=== PATIENT | female | born 1935 | race Caucasian/White ===

== ENCOUNTER 2017-01-23 09:02 | Emergency (ER) | payer MEDICARE, MEDICAID ==
[~2017-01-23] VITALS: Ht 152.4 cm; Wt 68.0 kg
[~2017-01-23 09:02] MED LIST: ACTOS15 MG PO; ASPIRIN 81MG TA81 MG PO; BISOPROLOL 5MG T5 MG PO; CELEBREX200 MG PO; CYMBALTA60 MG PO; DOXYCYCLINE HY100 M4 PO; FLOVENT 22220 MCG/PU IH; HYDROCHLOROTHIA1 TA1 PO; IPRATROPIUM BROM3 M1 IH; LEVAQUIN 750 M750 MG PO; LEVOTHYROXINE0.05 M3 NG; LISINOPRIL 10MG10 MG PO; METFORMIN ER500 M1 PO; PIOGLITAZONE HC30 MG PO; PREDNISONE 20MG20 MG PO; PROAIR HFA0.09 MG/AC IH; SINGULAIR10 MG PO; SPIRIVA HA1 PUFF/INH IH; SYNTHROID 0.0.125 MG PO; TAMIFLU 75MG CA75 MG PO; TESSALON PERLE100 M1 PO; TRAMADOL 50MG T50 MG PO; ZITHROMAX TRI-500 MG PO; ZOCOR40 MG PO
[2017-01-23 09:19] LABS: LYMPH # 0.7 K/mm3 (0.7-4.5); LYMPH % 9.4 % (10-50.0)
--- NOTE | 2017-01-23 09:24 | Emergency Room Report ---
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 N Clinical Suspician of Infection? N Mental Status: 1 - Regular (Normal Baseline) Sepsis Risk:Severe Sepsis Risk Have you (or family members/close friends) recently traveled outside the [place]? N If Yes, where/when: Have you had exposure to infectious disease within the past month? TB? Other? Specify: Comment Difficult history, limited by the patient's condition. She arrives in respiratory distress. The patient is brought in by ambulance for respiratory distress. She has a history of chronic obstructive pulmonary disease. She says she has been short of breath since Saturday. She hurts all over. She denies any recent cough or fever. ALLERGIES Coded Allergies: No Known Allergies (01/23/17) Home Medications Active Scripts Prednisone (Prednisone 20MG) 40 MG PO BID #24 TAB Prov: 07/20/16 BISOPROLOL FUMARATE (Bisoprolol 5MG) 5 MG PO DAILY #30 TAB Prov: 07/20/16 ALBUTEROL-IPRATROPIUM (Iprat-Albut 0.5-3(2.5) MG/3 Ml) 3 ML IH QID #120 NEB Ref 2 Prov: 07/20/16 FLUTICASONE PROP (Flovent 220) 1 PUFF IH BID #1 INH Ref 2 Prov: 07/20/16 Levofloxacin (Levaquin 750mg) 750 MG PO DAILY #3 TAB Prov: 07/20/16 Reported Medications Simvastatin (Zocor) 40 MG PO QHS Celecoxib (Celebrex) 200 MG PO QHS DULOXETINE HCL (Cymbalta 60MG) 60 MG PO QHS Montelukast Sodium (Singulair) 10 MG PO QHS ASPIRIN (Aspirin) 81 MG PO DAILY Tiotropium Raymond (Spiriva) 1 PUFF IH DAILY Albuterol Sulfate (Proair Hfa) 2 PUFFS IH Q4HP LEVOTHYROXINE SOD (Levothyroxine 0.05MG) 0.05 MG NG DAILY LISINOPRIL/HYDROCHLOROTHIAZIDE (Lisinopril-Hctz 20-12.5 MG Tab) 1 TAB PO DAILY PIOGLITAZONE HCL (Pioglitazone Hcl 30MG Tablet) 30 MG PO DAILY Metformin HCl (Metformin ER) 1,000 MG PO DAILY Tramadol Hcl (Tramadol 50MG) 50 MG PO Q6HP PRN PAIN History Medical History General CAD? No Angina: No RI: No Hypertension? Yes Hyperlipidemia? Yes CHF? No DVT? No PE? No COPD? Yes Asthma? Yes Anemia? No GERD? No Gastric ulcers? No GI Bleed? No Hernia? No Thyroid Problems? No Hypothyroidism? No CVA? No Seizures? No Diabetes? Yes Insulin Dependent: No Insulin Pump: No Home FSBS? No Renal Insuffiency? No End Stage Renal Disease? No UTI? No Stones? No BPH? No GB Disease: No Nephritic Syndrome? No Asplenia? No Hepatitis? No Sickle Cell Disease? No Arthritis? No Migraines? No Cataracts? Yes Glaucoma? No MRSA? No HIV? No TB? No Anxiety? No Depression? No Cancer? No More? No Immunization Hx Ped.Immunizations UTD Yes DT/Tetanus > 10 Years Ago Flu 2015-FSN Pneumonia Received In Past Surgical Hx Previous Surgery?N Family History Family Hx Diabetes No CAD No Hypertension Yes Hyperlipidemia No Cancer Yes TB No Social History Smoking Hx Smoker: Former Smoker Tobacco: No Packs/day N/A Alcohol Alcohol: No Review of Systems All Other Systems Reviewed and Negative Constitutional see HPI, denies fever Respiratory denies cough, shortness of breath Gastrointestinal denies vomiting Physical Exam Vital Signs Vital Signs Date Time Temp Pulse Resp B/P Pulse O2 O2 Flow FiO2 Ox Delivery Rate 01/23 1123 133 18 110/70 99 01/23 1049 142 28 89/40 93 01/23 1011 133 28 127/99 87 / 0922 98 / 0905 98.0 133 18 90/40 84 4 General Appearance moderate distress (labored respirations), speaks very softly and no one-2 word sentences only, pulse ox 85 percent on 5 L nasal cannula on my arrival Eye Exam - bilateral eye normal exam, bilateral eye PERRL, bilateral eye EOMI Ear, Nose, Throat hearing grossly normal, normal ENT inspection Neck normal inspection, non-tender, supple, full range of motion Respiratory Status Yes: respiratory distress, trachea midline, chest symmetrical. Lung Sounds bilateral: normal breath sounds, lungs clear. Cardiovascular normal exam, regular rate/rhythm, no peripheral edema, no gallop, no JVD, no murmur, no rub, normal peripheral pulses Peripheral Pulses Pulses normal Yes Gastrointestinal normal bowel sounds, normal exam, non tender, soft, no organomegaly Back normal inspection Extremities normal inspection Neurologic alert, no motor/sensory deficits Mental status anxious Skin intact, normal color, warm/dry Medical Decision Making LABS/Meds/Orders Pt receiving controlled substance in ED? No Results/Orders Laboratory Tests 01/23/17 1052: POC Glucose 115 H 01/23/17 0940: Lactic Acid 2.8 H 01/23/17 0925: ABG pH 7.32 L, ABG pCO2 (Temp Corrct 45.0, ABG pO2 (Temp Correct 59.6 L, ABG HCO3 22.9, ABG Total CO2 24.3, ABG O2 Sat (Calculated) 85.4 *L, ABG Base Excess -3.2 L, Lavon Test ACCEPTABLE 01/23/17 0900: TSH 0.53, Free T4 1.33 01/23/17 0900: B-Natriuretic Peptide 1620 H 01/23/17 0900: Sodium 137, Potassium 4.2, Chloride 95 L, Carbon Dioxide 28, BUN 83 H, Creatinine 4.0 H, Estimated Creat Clear 12 L, Estimated GFR (MDRD) 11 *L, Glucose 41 *L, Calcium 8.5, Total Bilirubin 3.8 H, AST 98 H, ALT 28, Alkaline Phosphatase 66, Creatine Kinase 493 H, CK-MB (CK-2) Rel Index 2.0, CK and CKMB Interp 9.9 *H, Troponin I 0.18 H, Total Protein 7.1, Albumin 2.0 L, Globulin 5.1 H, Albumin/Globulin Ratio 0.4 L, WBC 7.8, Corrected WBC (auto) 7.7, RBC 4.09 L, Hgb 11.9 L, Hct 36.5 L, MCV 89.3, RDW 16.2, Plt Count 243, MPV 10.1, Gran % 88.3 H, Gran # 6.9, Total Counted 100, Lymphocytes % 9.4 L, Monocytes % 1.8, Eosinophils % 0.1, Basophils % 0.4, Neutrophils 72, Band Neutrophils 6, Lymphocytes (Manual) 16, Lymphocytes # 0.7, Monocytes (Manual) 4, Monocytes # 0.1, Eosinophils # 0.0, Basophils # 0.0, Metamyelocytes 2 H, Nucleated RBCs 1, Platelet Estimate NORMAL, PUBS MCHC 32.4, MCH 29.0 Current Medication Orders Sig/Lucila Start time Last Medication Dose Route Stop Time Status Admin Azithromycin 500 MG ONCE ONE 01/23 104 DCD Sodium Chloride 250 ML IV 01/23 1144 Ceftriaxone Sodium 1 GM ONCE ONE 01/23 104 DC Sodium Chloride 50 ML IV 01/23 1114 Aspirin 324 MG ONCE ONE 01/23 1015 DC PO 01/23 1016 Dextrose 50 ML ONCE ONE 01/23 1015 DC 01/23 IVP 01/23 1016 1017 Dextrose 0 .STK-MED ONE 01/23 1014 DC .ROUTE Albuterol/Ipratropium 0 .STK-MED ONE 01/23 0935 DC INH Albuterol/Ipratropium 3 ML ONCE ONE 01/23 930 DC INH 01/23 0931 Methylprednisolone 125 MG ONCE ONE 01/23 930 DC 01/23 Sodium Succinate IV 01/23 931 0945 Orders Procedure Date/time Status DIET-NOTHING BY MOUTH 01/23 L Active FINGERSTICK BLOOD SUGAR 01/23 1052 Complete RESP THERAPY REQUEST (GENERAL) 01/23 930 Active RT REQUEST DUONEB 01/23 930 Active CULTURE, SPUTUM 01/24 928 Active CULTURE, BLOOD 01/24 928 Active LACTIC ACID 01/24 928 Complete THYROID STIMULATING HORMONE 01/23 922 Complete FREE T4 01/23 922 Complete BRAIN NATRIURETIC PEPTIDE 01/23 918 Complete ELECTROCARDIOGRAM REQUEST 01/23 909 Active ARTERIAL BLOOD GAS REQUEST 01/23 909 Active OXYGEN PER NURSE 01/23 909 Active CBC WITH AUTO DIFF 01/23 909 Complete CARDIAC ENZYMES 01/23 909 Complete CHEM 12 PROFILE 01/23 909 Complete DIFFERENTIAL-WBC 01/23 900 Complete 12 LEAD EKG-PRECIOUS (INITIAL) 01/23 UNK Active CM/EKG CM/EKG Comments EKG interpreted by Rik Renusch, MD: Rhythm: sinus tachycardia Rate: 133 [place]: normal Ectopy: none Conduction: RIGHT bundle branch block ST Segment Changes: none T Wave Changes: none Q Waves: none No evidence of acute ischemia or injury Low voltage QRS XRAY/CT/US XRAY/CT/US XRAY chest Comment X-ray interpreted by radiologist: Pneumonia with effusion RIGHT side. Dr. Ferro does not feel congestive heart failure is likely, vessels do not appear congested. He questions whether a mass could be present in the RIGHT base. CT recommended. Progress - 10:30 AM: Case discussed with Dr. Lazo and Dr. Hernandez. Given the patient's acute renal failure in addition to the other conditions, it is felt she would best be served by transfer to [facility]. 10:45 AM: Case discussed with emergency physician Dr. De La Cruz at [facility]. He accepts the patient to the emergency department. Departure Departure Disposition DC/XFER from ER to [facility] Clinical Impression Primary Impression: Acute respiratory failure with hypoxia Secondary Impressions: Acute renal failure Qualifiers: Acute renal failure type: unspecified Qualified Code: N17.9 - Acute kidney failure, unspecified Community acquired pneumonia Elevated bilirubin Hypoglycemia Non-ST elevation myocardial infarction (NSTEMI) Condition STABLE ED Critical Care Critical Care Yes Time spent 30-74 min Vital system(s) involved: Metabolic Failure, Respiratory Failure, Renal Failure I was present at bedside for Coordinating pt's care, Interpreting EKGs/Strips , During my initial exam, Reviewing lab results, Reviewing old records, Discussing pt condition, For re-examinations, Examining radiographs at 1335
[2017-01-23 09:27] LABS: HEMOGLOBIN 11.9 g/dL (12.2-16.2)
[2017-01-23 09:29] LABS: ARTERIAL ABE -3.2 MMOL/L (-2.4-+2.3); ARTERIAL PO2 59.6 MMHG (80-100); ARTERIAL TCO2 24.3 MMOL/L (23-27)
[2017-01-23 09:30] LABS: ALLEN'S TEST ACCEPTABLE; OXYGEN 40
--- OUTSIDE RECORDS SUMMARY | 2017-01-23 09:36 | External Medical Summary Rpt ---
Author Author , Organization [employer] Address Unknown Phone Unavailable Care Team Providers Care Echo Vasc Tech Name Role Phone [facility] BEINEKE ESAU, BEERIC Unavailable Unavailable MARIANO GUTIERREZ Unavailable Unavailable BESSON, BESSON Unavailable Unavailable BESSON VIOLETA, BESSON Unavailable Unavailable VIOLETA [facility], Unavailable Unavailable [facility], Unavailable Unavailable [facility] NEENA RODRIGUEZ, Unavailable Unavailable NEENA RODRIGUEZ CANNON, CANNON Unavailable Unavailable ESTEVAN MCCAIN Unavailable Unavailable [facility] Unavailable Unavailable SERVICE, [facility] Unavailable Unavailable [place], [facility] Unavailable Unavailable [facility], [facility] Unavailable Unavailable LAB, [facility] Unavailable Unavailable [facility] [place], [facility] Jack BROWN COOPER, Unavailable Unavailable Jack Huitron AMIRA, AMIRA Unavailable Unavailable AMIRA ELIA, Unavailable Unavailable AMIRA ELIA AMIRA, CORAZON, Unavailable Unavailable AMIRA, CORAZON [facility], Unavailable Unavailable [facility] Unavailable Unavailable [facility], [facility] GUNNAR JAMAR, Unavailable Unavailable [facility] Unavailable Unavailable [facility], [facility] BIN EDUARDO, BIN Unavailable Unavailable EDUARDO [facility] Un[facility] Unavailable [facility], [facility], [facility] Unavailable Unavailable [facility], [facility] ROSE KENDRICK, ROSE KENDRICK Unavailable Unavailable ROSE KENDRICK, ROSE KENDRICK Unavailable Unavailable ROSE, JEFE A, Unavailable Unavailable ROSE, JEFE A [facility], Unavailable Unavailable [facility], Unavailable Unavailable [facility], Unavailable Unavailable [facility] JASPER VITOR, JASPER Unavailable Unavailable VITOR [facility] Unavailable Unavailable [facility], [facility] Unavailable Unavailable [facility] Unavailable Unavailable [facility], [facility] JOHNSON KIMBERLY, JOHNSON Unavailable Unavailable KIMBERLY [facility] Unavailable Unavailable SERVICES, [facility] MCKEMIE JR JUANITA, Unavailable Unavailable MCKEMIE JR JUANITA MCKEMIE JR JUANITA, Unavailable Unavailable MCKEMIE JR JUANITA MAISHA PAL, Unavailable Unavailable MAISHA PAL [facility], Unavailable Unavailable [facility], Unavailable Unavailable [facility] MULBERRY, JAIR T, Unavailable Unavailable MULBERRY, JAIR T [facility] Un[facility] Unavailable PHARMACY PETTEY JAM, PETTEY Unavailable Unavailable JAM PETTEY JAM, PETTEY Unavailable Unavailable JAM PICKLESIMER JR GURPREET, Unavailable Unavailable PICKLESIMER JR GURPREET [facility] Unavailable Unavailable [facility], [facility] Unavailable Unavailable [facility], [facility] Un[facility] Unavailable [facility] Unavailable Unavailable [facility], [facility] Unavailable Unavailable [facility] Unavailable Unavailable [facility], [facility] Unavailable Unavailable [address]591, [facility] [address] [facility] # Unavailable Unavailable [id number], [facility] # [id number] [facility] Unavailable Unavailable [facility], Unavailable [facility]available [facility], Unavailable [facility]available [facility] Purpose Continuity of Care Document - 07-25-2007 through 2016 Problems Code Diagnosis DOS Provider Status J441 CHRONIC 09-18-2016 [facility]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 ION J9601 ACUTE 09-18-2016 [facility] RESPIRATORY HOME FAILURE MEDICAL WITH EQUIPME HYPOXIA J449 CHRONIC 09-10-2016 [facility] P[facility]MON[facility] LLC DISEASE UNS R1033 PERIUMBILIC 08-23-2016 [facility] G36498 PAIN IN 08-07-2016 [facility] R600 LOCALIZED 08-07-2016 [facility] E039 HYPOTHYROID 07-14-2016 [facility] UNSPECIFIED INC E119 TYPE 2 07-14-2016 [facility] MELLITUS INC WITHOUT COMPLICATIO NS E785 HYPERLIPIDE 07-14-2016 [facility] UNSPECIFIED INC I10 ESSENTIAL 07-14-2016 [facility] HYPERTENSIO INC N R05 COUGH 07-13-2016 [facility] R0602 SHORTNESS 07-13-2016 [facility] OF [facility]ATH [facility] R918 OTHER 07-13-2016 [facility] NONSPECIFIC [facility]ICAL ABNORMAL [facility] FINDING OF LUNG FIELD 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 OTHER PARTS OF FACE D2239 MELANOCYTIC 02-03-2016 [facility] NEVI OF PHYSICIANS OTHER PARTS GROUP OF FACE L989 DISORDER 02-03-2016 [facility] THE SKIN & ANESTH OF SUBCUTANEOU THE BLUE S TISSUE UNS C86780 ENCOUNTER 02-01-2016 [facility] AL CARIOVASCUL AR EXAM L92605 ENCOUNTER 02-01-2016 [facility] AL LABORATORY EXAM D492 NEOPLASM OF 01-20-2016 [facility] UNS PHYSICIANS BEHAVIOR GROUP BONE SOFT TISSUE & SKIN D4989 NEOPLASM OF 01-20-2016 [facility] PHYSICIANS UNSPECIFIED GROUP BEHAVIOR OTH SPEC SITES 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 Q98702 VARUS 11-02-2015 [facility] DEFORMITY PHYSICIANS NEC LEFT GROUP KNEE 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 7242 LUMBAGO 02-14-2015 [facility] 65793 SPASM OF 02-14-2015 [facility] 22532 ABDOMINAL 02-14-2015 [place] PAIN, MEDICAL UNSPECIFIED IMAGING ASS SITE 26419 DIAB W/O 01-14-2015 [facility] COMP TYPE ADVISORS II/UNS NOT STATED UNCNTRL 48095 PAIN IN OR 11-09-2014 [facility] 4019 UNSPECIFIED 11-09-2014 [facility] [place] [facility] 588[address] OPEN WOUND 11-09-2014 [facility] WITHOUT [facility]ING ASS MENTION COMPLICATIO N 920 CONTUSION 11-09-2014 [facility] P NECK EXCEPT EYE 9219 UNSPECIFIED 11-09-2014 [place] CONTUSION [facility]ICAL OF EYE IMAGING ASS E8498 OTHER 11-09-2014 [facility] P OCCURRENCE E8859 FALL FROM 11-09-2014 [facility] P TRIPPING OR STUMBLING 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 496 CHRONIC 06-24-2014 [place] [facility] OBSTRUCTION INC NEC 7862 COUGH 06-24-2014 [facility] 41001 ASTHMA, 02-16-2014 [facility] UNSPECIFIED HOME , MEDICAL UNSPECIFIED EQUIPME STATUS 77900 OBSTRUCTIVE 12-19-2012 [facility]ON[facility] WITH EXACERBATIO N 7850 UNSPECIFIED 06-19-2012 ANN ADRIAN JUANITA TACHYCARDIA 4293 CARDIOMEGAL 05-10-2012 [facility] 4659 ACUTE URIS 05-10-2012 [place] [facility] UNSPECIFIED INC SITE 5119 UNSPECIFIED 05-10-2012 [facility]FF[facility]ION [facility] 58035 OSTEOARTHRO 03-21-2012 PETTEY JAM SIS UNSPEC WHETHER GEN/LOC LOWER LEG 44031 PAIN IN 02-29-2012 PETTEY JAM JOINT, LOWER LEG 4871 INFLUENZA 10-04-2011 MULBERRY WITH OTHER OFELIA RESPIRATORY MANIFESTATI ONS 97137 INFLUENZA 09-29-2011 ATUL D/T ID EMERGENCY STORM FLU SERVICES VIRUS OTH RESP MANIF 5199 UNSPECIFIED 09-29-2011 [place] DISEASE OF [facility] IM[facility] ASS RESPIRATORY SYSTEM 46998 UNSPECIFIED 08-07-2011 ROSE KENDRICK TEAR FILM INSUFFICIEN CY V7612 OTHER 04-27-2011 [place] SCREENING [facility] MAMMOGRAM INC 9221 CONTUSION 04-17-2011 [facility] EMERGENCY WALL SERVICES E8889 UNSPECIFIED 04-17-2011 [facility] EMERGENC[facility] 2449 UNSPECIFIED 04-16-2011 [facility] HYPOTHYROID LA ISM 5990 URINARY 04-16-2011 [facility]CT [facility] INFECTION LA SITE NOT SPECIFIED 81479 DIAB 10-18-2010 [facility] W/NEURO NEUROLOGY MANIFESTS [facility]ENTER [facility] TYPE II/UNS NOT UNCNTRL 3572 POLYNEUROPA 10-18-2010 [facility] THY IN NEUROLOGY DIABETES CENTER [facility] 2724 OTHER AND 10-16-2010 [facility] U[facility]PECIFIED [facility] HYPERLIPIDE TALISHA 7292 UNSPECIFIED 10-16-2010 [facility] NEURALGIA [facility] NEURITIS AND RADICULITIS 02985 AFTER-CATAR 06-12-2010 ROSE MARKS ACT, OBSCURING VISION V0481 NEED 04-25-2010 [facility] PROPHYLACTI [facility] C VACCINATION &INOCULATIO N FLU 16278 CHRONIC 02-10-2010 [facility] OBSTRUCTIVE [facility] ASTHMA WITH EXACERBATIO N 94741 PRIMARY 02-10-2010 [facility] LOCALIZED [facility] OSTEOARTHRO SIS LOWER LEG 7823 EDEMA 02-10-2010 [facility] 47008 GENERALIZED 09-20-2009 [facility] OSTEOARTHRO SIS UNSPECIFIED SITE 7245 UNSPECIFIED 03-04-2009 [facility] BACKACHE [facility] 1179 OTHER AND 02-03-2009 [facility] UNSPECIFIED ASSOCIATES MYCOSES 05269 CHRONIC 02-03-2009 [facility] OBSTRUCTIVE [facility] ASTHMA UNSPECIFIED 24464 OSTEOARTHRO 02-03-2009 [facility] S INVLV MX ASSOCIATES SITES BUT NOT SPEC GEN 71660 ASTHMA 12-09-2008 [facility] UNSPECIFIED [facility] WITH EXACERBATIO N 02546 CHRONIC 11-26-2008 [facility]STRUCT[facility] ASTHMA W/STATUS ASTHMATICUS 64080 UNSPECIFIED 11-26-2008 [facility] URINARY [facility] INCONTINENC E 92467 SHORTNESS 09-30-2008 [facility] OF BREATH [facility] V431 LENS 08-24-2008 SHILOH REPLACED BY VISION OTHER MEANS 32178 NUCLEAR 08-17-2008 [facility] 3669 UNSPECIFIED 08-17-2008 ROSE, CATARACT JEFE A 74174 DIAB 06-15-2008 [facility] W/OPHTH [facility] MANIF[facility]S IN[facility] TYPE II/UNS NOT UNCNTRL 3688 OTHER 06-15-2008 [facility] SPECIFIED [facility]UAL [facility] DISTURBANCE S 39946 DERMATOCHAL 06-15-2008 [facility] 49991 PAIN IN 04-01-2008 [facility] JOINT, [facility]OCI[facility] SHOULDER REGION Allergies, Adverse Reactions, Alerts Clinical Alert Notifications Alert Diabetes: no eye exam in the last 365 days Diabetes: no lipid panel in the last 365 days Diabetes: no urine protein screening in the last 365 days Medications Na ND Rx Da Fi Fi Am Da Di Ph RX Ph St me C No te ll ll ou ys ag ar # ys at rm s nt no ma ic us Or Da si cy ia de te s n re d TU 61 03 03 0 30 5 WA 44 MU Ac SS 57 -0 -0 .0 L- 84 LB ti IG 00 9 9- 00 MA 02 ER ve ON 03 10 20 RT 8 RY 10 10 10 5- 1 PH BR 1. AR IA 5 MA N MG CY T # TA BL 10 ET 05 91 TU 61 02 02 00 30 5 WA 44 MU Ac SS 57 -1 -2 .0 L- 83 LB ti IG 00 7- 6- 00 MA 54 ER ve ON 20 20 RT 3 RY 10 10 10 5- 1 PH BR 1. AR IA 5 MA N MG CY T TA #5 BL 91 ET TU 61 05 06 00 30 5 WA 44 MU Ac SS 57 -2 -0 .0 L- 76 LB ti IG 00 1 4 MA 82 ER ve ON 03 10 20 RT 6 RY 10 09 09 5- 1 PH BR 1. AR IA 5 MA N MG CY T TA #5 BL 91 ET Immunization Name Date Route CVX Reacti Commen Provid Is Given on t er Refuse d IIV MULBER No VACCIN 2009 RY OFELIA E PRESER V FREE INCREA SED AG CONTEN T IM IIV3 MULBER No VACCIN 2008 RY, E JAIR SPLIT T VIRUS 0.5 ML DOSAGE IM USE IIV3 STEPHANIE No VACCIN 2007 , J G E SPLIT VIRUS 0.5 ML DOSAGE IM USE Procedures Procedure DOS Code Location Performer Comment O2 CONC 1 E1390 [facility] SANCHEZRELL [place] 7 HOME HOME 85%/>02 MEDICAL MEDICAL CONC AT EQUIPME [facility] FLW RATE PRTBLE E0431 [facility] GASEOUS 7 HOME HOME O2 SYS MEDICAL MEDICAL RENT; EQUIPME EQUIPME FLWMTR HUMIDFR&M ASK ADMN SET A7005 YOUR YOUR W/SM VOL 7 PHARMACY PHARMACY NONFILTR [facility] NEBULIZR NON-DISPB L ALBUTEROL J7613 YOUR YOUR INHAL 7 PHARMACY PHARMACY NON-CP [facility] PROD THRU DME U DOSE 1 MG AREO MASK A7015 YOUR YOUR USED W/ 7 PHARMACY PHARMACY [place] [facility] [place] [address] [facility] ABDOMEN & 7 MEM HOS[facility] PELVIS INC INC W/O CONTRAST MATERIAL O2 CONC 1 E1390 GU[facility] GUERO DEL PORT 7 HOME HOME 85%/>02 MEDICAL MEDICAL CONC AT EQUIPME [facility] FLW RATE PRTBLE E0431 [facility] GASEOUS 7 HOME HOME O2 SYS MEDICAL MEDICAL RENT; EQUIPME EQUIPME FLWMTR HUMIDFR&M ASK DUP-SCAN 90912 [place] CANNON XTR VEINS 7 MEDICAL IMAGING UNILATERA ASS L/LIMITED STUDY O2 CONC 1 E1390 [facility] MOMIN PORT 6 HOME HOME 85%/>02 MEDICAL MEDICAL CONC AT EQUIPME EQUIPME PRSC FLW RATE PRTBLE E0431 [facility] JACK GASEOUS 6 HOME HOME O2 SYS MEDICAL MEDICAL RENT; EQUIPME EQUIPME FLWMTR HUMIDFR&M ASK RADIOLOGI 49684 EVE COLLIER 6 MEDICAL EXAMINATI IMAGING ON CHEST ASS SINGLE VIEW FRONTAL AMB A0427 [facility] SERVICE 6 AMBULANCE AMBULANCE ALS SERVICE SERVICE EMERGENCY TRANSPORT LEVEL 1 ECG 97112 [facility] ROUTINE 6 [facility] W/LEAST P 12 LDS I&R ONLY GROUND A0425 [facility] MILEAGE 6 AMBULANCE AMBULANCE PER SERVICE SERVICE STATUTE MILE ANES 48978 [facility] INTEG 6 ANESTH MUSC & OF THE NRV HEAD BLUE NECK&[place] [address] CHIPPS PICKLESIM SURG 6 NELLI & ER JR [facility] PATHOLOGY ELLIOTILI GROSS&EDUARDO ROSCOPIC EXAM GLUC BLD 56045 [facility] F[facility]RELL GLUC MNTR 6 [facility] H[facility] DEV INC INC CLEARED FDA SPEC HOME USE ADJT TIS 58871 [facility] TRNS/REAR 6 PHYSICIAN PHYSICIAN GMT S GROUP S GROUP F/C/C/M/N /A/G/H/F 10SQCM/< ECG 68047 [facility] ROUTINE 6 [facility] W/LEAST P 12 LDS I&R ONLY COLLECTIO 82172 [facility] N VENOUS 6 [facility] BLOOD INC INC VENIPUNCT URE ECG 64534 [facility] FERRELL ROUTINE 6 [facility] ECG INC INC W/LEAST 12 LDS TRCG ONLY W/O I&R COMPREHEN 82128 [facility] SIVE 6 MEM HOS[facility]OS[facility] METABOLIC INC INC PANEL ARTHROCEN 57541 [facility] PETFrank TESIS 6 PHYSICIAN JENNIFER ASPIR&/IN S GROUP J MAJOR JT/BURSA W/O US HYALURONA J7325 [facility] PETTEY N/DERIV 6 PHYSICIAN JENNIFER SYNVISC/S S GROUP YNVISC-ON E IA INJ 1 MG FOR DIAB A5512 PAT'S PAT'S ONLY MX 6 PHARMACY PHARMACY DNSITY INSRT DIR FORMD PRFAB EA DIAB ONLY A5500 PAT'S PAT'S FIT CSTM 6 PHARMACY PHARMACY PREP&SPL SHOE MX DNSITY INSRT LANCETS A4259 HOME HOME PER BOX 5 [facility] OF 100 ADVISORS ADVISORS BLD GLU A4253 HOME HOME TEST/REAG 5 HEALTH HEALTH T STRIPS ADVISORS ADVISORS HOME BLD GLU MON-50 NORMAL A4256 HOME HOME LOW AND 5 HEALTH HEALTH HIGH ADVISORS ADVISORS CALIBRATO R SOLUTION/ CHIPS RADEX 76171 [place] CLARYINEDONA ABDOMEN 1 5 MEDICAL ESAU IMAGING ANTEROPOS ASS TERIOR VIEW RADEX 41763 [place] SPINE 5 MEDICAL ESAU LUMBOSACR IMAGING AL ASS MINIMUM 4 VIEWS REPL MAURICIO A4233 HOME HOME ALKALINE 5 HEALTH HEALTH NOT J ADVISORS ADVISORS CELL YANELI BG MON OWND PT SPRING-PO A4258 HOME HOME WERED 5 HEALTH HEALTH DEVICE ADVISORS ADVISORS FOR LANCET EACH BLD GLU A4253 HOME HOME TEST/REAG 5 HEALTH HEALTH T STRIPS ADVISORS ADVISORS HOME BLD GLU MON-50 LANCETS A4259 HOME HOME PER BOX 5 [facility]ALTH HEALTH OF 100 ADVISORS ADVISORS NORMAL A4256 HOME HOME LOW AND 5 HEALTH HEALTH HIGH ADVISORS ADVISORS CALIBRATO R SOLUTION/ CHIPS NORMAL A4256 HOME HOME LOW AND 5 HEALTH HEALTH HIGH ADVISORS ADVISORS CALIBRATO R SOLUTION/ CHIPS LANCETS A4259 HOME HOME PER BOX 5 [facility] OF 100 ADVISORS ADVISORS BLD GLU A4253 HOME HOME TEST/REAG 5 HEALTH HEALTH T STRIPS ADVISORS ADVISORS HOME BLD GLU MON-50 RADEX 05490 [facility] 5 MEDICAL ELIA COMPLETE IMAGING MINIMUM 4 ASS VIEWS WRIST L3908 [facility] HAND 5 MEDICAL MEDICAL ORTHOSIS [place] EXT CONTROL COCK-UP PREFAB RADIOLOGI 40699 [facility] F[facility]RE[facility] C EXAM 4 MEM HOS[facility]OS[facility] CHEST 2 INC INC VIEWS FRONTAL&L ATERAL LANCETS A4259 [facility] PER BOX 4 MEDICAL MEDICAL OF 100 [place] BLD GLU A4253 [facility] TEST/REAG 4 MEDICAL MEDICAL T STRIPS [place] HOME BLD GLU MON-50 NORMAL A4256 [facility] LOW AND 4 MEDICAL MEDICAL HIGH [place] CALIBRATO R SOLUTION/ CHIPS NORMAL A4256 [facility] LOW AND 4 MEDICAL MEDICAL HIGH [place] CALIBRATO R SOLUTION/ CHIPS BLD GLU A4253 [facility] TEST/REAG 4 MEDICAL MEDICAL T STRIPS [place] HOME BLD GLU MON-50 LANCETS A4259 [facility] PER BOX 4 MEDICAL MEDICAL OF 100 [place] FOR DIAB A5512 PAT'S PAT'S ONLY MX 4 PHARMACY PHARMACY DNSITY INSRT DIR FORMD PRFAB EA DIAB ONLY A5500 PAT'S PAT'S FIT CSTM 4 PHARMACY PHARMACY PREP&SPL SHOE MX DNSITY INSRT O2 CONC 1 E1390 GUERO GUERO DEL PORT 4 HOME HOME 85%/>02 MEDICAL MEDICAL CONC AT EQUIPME EQUIPME PRSC FLW RATE REPL MAURICIO A4233 HOME HOME ALKALINE 4 HEALTH HEALTH NOT J ADVISORS ADVISORS CELL YANELI BG MON OWND PT LANCETS A4259 HOME HOME PER BOX 4 [facility] OF 100 ADVISORS ADVISORS NORMAL A4256 HOME HOME LOW AND 4 HEALTH HEALTH HIGH ADVISORS ADVISORS CALIBRATO R SOLUTION/ CHIPS BLD GLU A4253 HOME HOME TEST/REAG 4 HEALTH HEALTH T STRIPS ADVISORS ADVISORS HOME BLD GLU MON-50 O2 CONC 1 E1390 GUERO GUERO DEL PORT 4 HOME HOME 85%/>02 MEDICAL MEDICAL CONC AT EQUIPME EQUIPME PRSC FLW RATE O2 CONC 1 E1390 GUERO GUERO DEL PORT 4 HOME HOME 85%/>02 MEDICAL MEDICAL CONC AT EQUIPME EQUIPME PRSC FLW RATE SPRING-PO A4258 [facility] WERED 4 MEDICAL MONEY EXAMINER [place] FOR LANCET EACH BLD GLU A4253 [facility] TEST/REAG 4 MEDICAL MEDICAL T STRIPS [place] HOME BLD GLU MON-50 NORMAL A4256 [facility] LOW AND 4 MEDICAL MEDICAL HIGH [place] CALIBRATO R SOLUTION/ CHIPS LANCETS A4259 [facility] PER BOX 4 MEDICAL MEDICAL OF 100 [place] O2 CONC 1 E1390 [facility] MOMIN PORT 4 HOME HOME 85%/>02 MEDICAL MEDICAL CONC AT EQUIPME EQUIPME [facility] FLW RATE O2 CONC 1 E1390 [facility] MOMIN PORT 4 HOME HOME 85%/>02 MEDICAL MEDICAL CONC AT EQUIPME EQUIPME PRS FLW RATE LANCETS A4259 HOME HOME PER BOX 4 [facility] HEALTH OF 100 ADVISORS ADVISORS BLD GLU A4253 HOME HOME TEST/REAG 4 HEALTH HEALTH T STRIPS ADVISORS ADVISORS HOME BLD GLU MON-50 NORMAL A4256 HOME HOME LOW AND 4 HEALTH HEALTH HIGH ADVISORS ADVISORS CALIBRATO R SOLUTION/ CHIPS O2 CONC 1 E1390 [facility] MOMIN PORT 4 HOME HOME 85%/>02 MEDICAL MEDICAL CONC AT EQUIPME EQUIPME PRS FLW RATE HOME E0607 [facility] BLOOD 4 MEDICAL MEDICAL GLUCOSE [place] MONITOR BLD GLU A4253 [facility] TEST/REAG 4 MEDICAL MEDICAL T STRIPS [place] HOME BLD GLU MON-50 LANCETS A4259 [facility] PER BOX 4 MEDICAL MEDICAL OF 100 [place] O2 CONC 1 E1390 [facility] MOMIN PORT 4 HOME HOME 85%/>02 MEDICAL MEDICAL CONC AT EQUIPME EQUIPME PRS FLW RATE O2 CONC 1 E1390 [facility] MOMIN PORT 3 HOME HOME 85%/>02 MEDICAL MEDICAL CONC AT EQUIPME EQUIPME PRS FLW RATE REPL MAURICIO A4233 HOME HOME ALKALINE 3 HEALTH HEALTH NOT J ADVISORS ADVISORS CELL YANELI BG MON OWND PT LANCETS A4259 HOME HOME PER BOX 3 [facility] OF 100 ADVISORS ADVISORS NORMAL A4256 HOME HOME LOW AND 3 HEALTH HEALTH HIGH ADVISORS ADVISORS CALIBRATO R SOLUTION/ CHIPS BLD GLU A4253 HOME HOME TEST/REAG 3 HEALTH HEALTH T STRIPS ADVISORS ADVISORS HOME BLD GLU MON-50 O2 CONC 1 E1390 [facility] MOMIN PORT 3 HOME HOME 85%/>02 MEDICAL MEDICAL CONC AT EQUIPME EQUIPME PRSC FLW RATE SPRING-PO A4258 [place] WERED 3 [facility] STATES DEVICE MEDICAL MEDICAL FOR SUPPLY SUPPLY LANCET EACH BLD GLU A4253 [facility] TEST/REAG 3 [facility] STATES T STRIPS MEDICAL MEDICAL HOME BLD SUPPLY SUPPLY GLU MON-50 NORMAL A4256 [facility] LOW AND 3 [facility] HIGH MEDICAL MEDICAL CALIBRATO SUPPLY SUPPLY R SOLUTION/ CHIPS LANCETS A4259 [facility] PER BOX 3 [facility] OF [facility] MEDICAL MEDICAL SUPPLY SUPPLY O2 CONC 1 E1390 GUERO SANCHEZRELL DEL PORT 3 HOME HOME 85%/>02 MEDICAL MEDICAL CONC AT EQUIPME EQUIPME PRSC FLW RATE O2 CONC 1 E1390 GUERO GUERO DEL PORT 3 HOME HOME 85%/>02 MEDICAL MEDICAL CONC AT EQUIPME EQUIPME PRSC FLW RATE LANCETS A4259 HOME HOME PER BOX [address] [place] [address] ADVISORS ADVISORS NORMAL A4256 HOME HOME LOW AND 3 HEALTH HEALTH HIGH ADVISORS ADVISORS CALIBRATO R SOLUTION/ CHIPS BLD GLU A4253 HOME HOME TEST/REAG 3 HEALTH HEALTH T STRIPS ADVISORS ADVISORS HOME BLD GLU MON-50 O2 CONC 1 E1390 GUERO GUERO DEL PORT 3 HOME HOME 85%/>02 MEDICAL MEDICAL CONC AT EQUIPME EQUIPME PRSC FLW RATE O2 CONC 1 E1390 GUERO GUERO DEL PORT 3 HOME HOME 85%/>02 MEDICAL MEDICAL CONC AT EQUIPME EQUIPME PRSC FLW RATE O2 CONC 1 E1390 GUERO GUERO DEL PORT 3 HOME HOME 85%/>02 MEDICAL MEDICAL CONC AT EQUIPME EQUIPME PRSC FLW RATE SPRING-PO A4258 [facility] WERED 3 [facility]ALTH[facility] HEALTHCAR DEVICE E E FOR SOLUTIONS SOLUTIONS LANCET EACH REPL MAURICIO A4233 [facility] ALKALINE 3 HEALTHCAR HEALTHCAR NOT J E E CELL YANELI SOLUTIONS SOLUTIONS BG MON OWND PT NORMAL A4256 [facility] LOW AND 3 [facility] HEALTHCAR HIGH E E CALIBRATO SOLUTIONS SOLUTIONS R SOLUTION/ CHIPS BLD GLU A4253 [facility] TEST/REAG 3 [facility]ALTHCAR HEALTHCAR T STRIPS E E HOME BLD SOLUTIONS SOLUTIONS GLU MON-50 LANCETS A4259 [facility] PER BOX 3 [facility]ALTH[facility] HEALTHCAR OF 100 E E SOLUTIONS SOLUTIONS ALBUTEROL J7620 YOUR YOUR TO 2.5 3 PHARMACY PHARMACY [facility] [employer] IPRATROPI UM BROM TO 0.5 MG PHRM Q0513 YOUR YOUR DISPENSIN 3 PHARMACY PHARMACY [facility] INHALATIO N RX; PER 30 DAYS O2 CONC 1 E1390 GUERO JACK DEL PORT 3 HOME HOME 85%/>02 MEDICAL MEDICAL CONC AT EQUIPME EQUIPME PRSC FLW RATE O2 CONC 1 E1390 GUERO JACK DEL PORT 3 HOME HOME 85%/>02 MEDICAL MEDICAL CONC AT EQUIPME EQUIPME PRSC FLW RATE O2 CONC 1 E1390 GUERO JACK DEL PORT 3 HOME HOME 85%/>02 MEDICAL MEDICAL CONC AT EQUIPME EQUIPME PRSC FLW RATE NORMAL A4256 [facility] LOW AND 3 HEALTHCAR HEALTHCAR HIGH E E CALIBRATO SOLUTIONS SOLUTIONS R SOLUTION/ CHIPS LANCETS A4259 [facility] PER BOX 3 [facility]ALTHCAR HEALTHCAR OF 100 E E SOLUTIONS SOLUTIONS BLD GLU A4253 [facility] TEST/REAG 3 HEALTHCAR HEALTHCAR T STRIPS E E HOME BLD SOLUTIONS SOLUTIONS GLU MON-50 O2 CONC 1 E1390 GUERO JACK DEL PORT 3 HOME HOME 85%/>02 MEDICAL MEDICAL CONC AT EQUIPME EQUIPME PRSC FLW RATE PRTBLE E0431 GUERO GUERO GASEOUS 3 HOME HOME O2 SYS MEDICAL MEDICAL RENT; EQUIPME EQUIPME FLWMTR HUMIDFR&M ASK PULM G0424 [facility] INCL EXER INC INC 1 HR PER SESS TO 2 PER DAY O2 CONC 1 E1390 GUEROMAYO JACK DEL PORT 3 HOME HOME 85%/>02 MEDICAL MEDICAL CONC AT EQUIPME EQUIPME PRSC FLW RATE PRTBLE E0431 GUERO GUERO GASEOUS 3 HOME HOME O2 SYS MEDICAL MEDICAL RENT; EQUIPME EQUIPME FLWMTR HUMIDFR&M ASK DETERMINA [id number] ROSE MARKS TION 3 REFRACTIV E STATE PUL G0424 [facility] INCL EXER INC INC 1 HR PER SESS TO 2 PER DAY OPH [id number] ROSE MARKS MEDICAL 3 XM&EVAL COMPRHNSV ESTAB PT 1/> PUL G0424 [facility] VITRO INCL EXER INC 1 HR PER SESS TO 2 PER DAY PUL G0424 [facility] VITOR INCL EXER INC 1 HR PER SESS TO 2 PER DAY PUL G0424 [facility] INCL EXER INC INC 1 HR PER SESS TO 2 PER DAY PUL G0424 [facility] INCL EXER INC INC 1 HR PER SESS TO 2 PER DAY PUL G0424 [facility] INCL EXER INC INC 1 HR PER SESS TO 2 PER DAY PUL G0424 [facility] INCL EXER INC INC 1 HR PER SESS TO 2 PER DAY O2 CONC 1 E1390 GUERO JACK DEL PORT 2 HOME HOME 85%/>02 MEDICAL MEDICAL CONC AT EQUIPME EQUIPME PRSC FLW RATE PRTBLE E0431 GUERO JACK GASEOUS 2 HOME HOME O2 SYS MEDICAL MEDICAL RENT; EQUIPME EQUIPME FLWMTR HUMIDFR&M ASK ALBUTEROL [id number] YOUR YOUR TO 2.5 2 PHARMACY PHARMACY MG & IPRATROPI UM BROM TO 0.5 MG REPL MAURICIO A4233 [facility] ALKALINE 2 [facility]ALTH[facility] HEALTHCAR NOT J E E CELL YANELI SOLUTIONS SOLUTIONS BG MON OWND PT SPRING-PO A4258 [facility] WERED 2 [facility] HE[facility]CAR DEVICE E E FOR SOLUTIONS SOLUTIONS LANCET EACH NORMAL A4256 [facility] LOW AND 2 HEALTHCAR HEALTHCAR HIGH E E CALIBRATO SOLUTIONS SOLUTIONS R SOLUTION/ CHIPS BLD GLU A4253 PLAZA PLAZA TEST/REAG 2 [facility] HE[facility]CAR T STRIPS E E HOME BLD SOLUTIONS SOLUTIONS GLU MON-50 LANCETS A4259 PLAZA PLAZA PER BOX 2 [facility] OF 100 E E SOLUTIONS SOLUTIONS PULM G0424 [facility] ROGERSON [facility] INCL EXER INC INC 1 HR PER SESS TO 2 PER DAY XTRNL ECG 66058 GHASSAN FERRELL & 48 HR 2 [facility] RECORDING INC INC O2 CONC 1 E1390 GUERO JACK DEL PORT 2 HOME HOME 85%/>02 MEDICAL MEDICAL CONC AT EQUIPME EQUIPME PRS FLW RATE EXTERNAL 74695 GHASSAN FERRELL ECG 2 [facility] SCANNING INC INC ANALYSIS REPORT XTRNL ECG 43041 VIOLAMIWes KATHYKEMIE 2 JR JUANITA JR JUANITA CONTINUOU S RHYTHM W/I&R UP TO 48 HRS PRTBLE E0431 GUERO SANCHEZRELL GASEOUS 2 HOME HOME O2 SYS MEDICAL MEDICAL RENT; EQUIPKS EQUIPME FLWMTR HUMIDFR&M ASK PULM G0424 [facility] FERRELL [facility]AB [facility] INCL EXER INC INC 1 HR PER SESS TO 2 PER DAY PULM G0424 GHASSAN FERRELL [facility] INCL EXER INC INC 1 HR PER SESS TO 2 PER DAY PULM G0424 GHASS[facility] FERRELL [facility] 2 [facility] INCL EXER INC INC 1 HR PER SESS TO 2 PER DAY SPMTRY 45540 BESSON BESSON W/VC 2 VIOLETA VIOLETA EXPIRATOR Y JERMAIN W/WO MXML VOL VNTJ ALBUTEROL J7620 YOUR YOUR TO 2.5 2 PHARMACY PHARMACY MG & IPRATROPI UM BROM TO 0.5 MG ADMN SET A7003 YOUR YOUR SM VOL 2 PHARMACY PHARMACY NONFILTR PNEUMAT NEBULIZR DISPBL O2 CONC 1 E1390 GUERO JACK DEL PORT 2 HOME HOME 85%/>02 MEDICAL MEDICAL CONC AT EQUIPME EQUIPME [facility] FLW RATE PRTBLE E0431 GUERO GUERO GASEOUS 2 HOME HOME O2 SYS MEDICAL MEDICAL RENT; EQUIPME EQUIPME FLWMTR HUMIDFR&M ASK RADIOLOGI 24972 AMIRA AMIRA C EXAM 2 ELIA ELIA CHEST 2 VIEWS FRONTAL&L ATERAL PRESSURIZ 17795 GHASSAN FERRELL ED/NONPRE 2 [facility]P SSURIZED INC INC INHALATIO N TREATMENT RADIOLOGI 43523 [facility] AM[facility] C EXAM 2 MEDICAL ELIA CHEST 2 IMAGING VIEWS ASS FRONTAL&L ATERAL LANCETS A4259 PLAZA PLAZA PER BOX 2 [facility]CAR OF 100 E E SOLUTIONS SOLUTIONS NORMAL A4256 PLAZA PLAZA LOW AND 2 [facility] HEALTHCAR HIGH E E CALIBRATO SOLUTIONS SOLUTIONS R SOLUTION/ CHIPS BLD GLU A4253 PLAZA PLAZA TEST/REAG 2 [facility] HEALTHCAR T STRIPS E E HOME BLD SOLUTIONS SOLUTIONS GLU MON-50 HYALURONA J7325 PETTEY PETTEY N/DERIV 2 JAM JAM SYNVISC/S YNVISC-ON E IA INJ 1 MG HYALURONA J7325 PETTEY PETTEY N/DERIV 2 JAM JAM SYNVISC/S YNVISC-ON E IA INJ 1 MG HYALURONA J7325 PETTEY PETTEY N/DERIV 2 JAM JAM SYNVISC/S YNVISC-ON E IA INJ 1 MG HYALURONA J7325 PETTEY PETTEY N/DERIV 2 JAM JAM SYNVISC/S YNVISC-ON E IA INJ 1 MG RADIOLOGI 63456 GHASSAN FERRELL C EXAM 2 [facility] KNEE INC INC COMPLETE 4/MORE VIEWS REPL MAURICIO A4233 PLAZA PLAZA ALKALINE 2 [facility] HE[facility] NOT J E E CELL YANELI SOLUTIONS SOLUTIONS BG MON OWND PT SPRING-PO A4258 PLAZA PLAZA WERED 2 [facility] HEALTHCAR DEVICE E E FOR SOLUTIONS SOLUTIONS LANCET EACH LANCETS A4259 PLAZA PLAZA PER BOX 2 [facility] HEALTHCAR OF 100 E E SOLUTIONS SOLUTIONS BLD GLU A4253 PLAZA PLAZA TEST/REAG 2 [facility] HEALTHCAR T STRIPS E E HOME BLD SOLUTIONS SOLUTIONS GLU MON-50 NORMAL A4256 PLAZA PLAZA LOW AND 2 [facility] HEALTHCAR HIGH E E CALIBRATO SOLUTIONS SOLUTIONS R SOLUTION/ CHIPS BLD GLU A4253 PLAZA PLAZA TEST/REAG 2 [facility]ALTH[facility] HEALTHCAR T STRIPS E E HOME BLD SOLUTIONS SOLUTIONS GLU MON-50 LANCETS A4259 PLAZA PLAZA PER BOX 2 HEALTHCAR HEALTHCAR OF 100 E E SOLUTIONS SOLUTIONS LANCETS A4259 PLAZA PLAZA PER BOX 2 [facility]ALTHCAR HEALTHCAR OF 100 E E SOLUTIONS SOLUTIONS NORMAL A4256 PLAZA PLAZA LOW AND 2 [facility] HEALTHCAR HIGH E E CALIBRATO SOLUTIONS SOLUTIONS R SOLUTION/ CHIPS BLD GLU A4253 PLAZA PLAZA TEST/REAG 2 [facility] HEALTHCAR T STRIPS E E HOME BLD SOLUTIONS SOLUTIONS GLU MON-50 PRESSURIZ 34490 GHASSAN FERRELL ED/NONPRE 2 [facility] [place]URIZ[place] [address] GHASSAN FERRELL INFUSION 2 [facility] THERAPY/P INC INC ROPHYLAXI S /DX 1ST TO 1 HR ECG 37699 GHASSAN FERRELL ROUTINE 2 [facility] ECG INC INC W/LEAST 12 LDS TRCG ONLY W/O I&R CREATINE 89323 GHASSAN FERRELL KINASE 2 [facility] TOTAL INC INC RADIOLOGI 25860 GHASSAN FERRELL C 2 [facility] EXAMINATI INC INC ON CHEST SINGLE VIEW FRONTAL CREATINE 60957 GHASSAN FERRELL KINASE MB 2 [facility] FRACTION INC INC ONLY IAADI 92189 GHASSAN FERRELL INFLUENZA 2 [facility] B VIRUS INC INC IAADI 34928 GHASSAN FERRELL INFFLUENZ 2 [facility] A A VIRUS INC INC INJECTION J0456 GHASSAN FERRELL 2 [facility] AZITHROMY INC INC RADHAMES 500 MG BLOOD 06864 GHASSAN FERRELL COUNT 2 [facility] COMPLETE INC INC AUTO&AUTO DIFRNTL WBC BASIC 57469 GHASSAN FERRELL METABOLIC 2 [facility] PANEL INC INC CALCIUM TOTAL NATRIURET 40013 GHASSAN FERRELL IC 2 [facility] [place] [address] GHASSAN FERRELL TROPONIN 2 [facility]P QUANTITAT INC INC MAEVE ECG 30527 ATUL STEWARD ROUTINE 2 EMERGENCY EDUARDO ECG SERVICES W/LEAST 12 LDS I&R ONLY CULTURE 06298 GHASSAN FERRELL BACTERIAL 2 [facility] BLOOD INC INC AEROBIC W/ID ISOLATES SMR PRIM 36248 GHASSAN FERRELL SRC 2 [facility] GRAM/GIEM INC INC SA STAIN BCT FUNGI/SYLVIE L DETERMINA 43537 ROSE KENDRICK ROSE KENDRICK TION 2 REFRACTIV E STATE LANCETS A4259 PLAZA PLAZA PER BOX 1 [facility]ALTH[facility] HEALTHCAR OF 100 E E SOLUTIONS SOLUTIONS NORMAL A4256 PLAZA PLAZA LOW AND 1 [facility] HEALTHCAR HIGH E E CALIBRATO SOLUTIONS SOLUTIONS R SOLUTION/ CHIPS BLD GLU A4253 PLAZA PLAZA TEST/REAG 1 [facility] HEALTHCAR T STRIPS E E HOME BLD SOLUTIONS SOLUTIONS GLU MON-50 REPL MAURICIO A4233 PLAZA PLAZA ALKALINE 1 HEALTH[facility] HEALTHCAR NOT J E E CELL YANELI SOLUTIONS SOLUTIONS BG MON OWND PT [facility] A4258 PLAZA PLAZA WERED 1 HEALTHCAR HEALTHCAR DEVICE E E FOR SOLUTIONS SOLUTIONS LANCET EACH COMPUTER- 22864 GHASSAN FERRELL AIDED 1 [facility] DETECTION INC INC SCREENING MAMMOGRAP HY SCREENING G0202 GHASSAN FERRELL 1 [facility] MAMMOGRAP INC INC HY PASCALE INCL CAD WHEN PERFORMD RADEX 15420 [place] AMIRA STERNUM 1 MEDICAL ELIA MINIMUM 2 IMAGING VIEWS ASS RADIOLOGI 70058 GHASSAN FERRELL C EXAM 1 [facility] CHEST 2 INC INC VIEWS FRONTAL&[place] [address] COMBINED COMBINED THYROID 1 PHYSICIAN PHYSICIAN STIMULATI S LA S LA NG HORMONE TSH BASIC 13462 COMBINED COMBINED METABOLIC 1 PHYSICIAN PHYSICIAN PANEL S LA S LA CALCIUM TOTAL WALKER E0143 GUERO GUERO FOLDING 1 HOME HOME WHEELED MEDICAL MEDICAL ADJUSTABL EQUIPME EQUIPME E/FIXED [facility]IGHT [facility] A4258 PLAZA PLAZA WERED 1 HEALTHCAR HEALTHCAR DEVICE E E FOR SOLUTIONS SOLUTIONS LANCET EACH REPL MAURICIO A4233 PLAZA PLAZA ALKALINE 1 HEALTHCAR HEALTHCAR NOT J E E CELL YANELI SOLUTIONS SOLUTIONS BG MON OWND PT LANCETS A4259 PLAZA PLAZA PER BOX 1 [facility]ALTHCAR HEALTHCAR OF 100 E E SOLUTIONS SOLUTIONS NORMAL A4256 PLAZA PLAZA LOW AND 1 HE[facility] HEALTHCAR HIGH E E CALIBRATO SOLUTIONS SOLUTIONS R SOLUTION/ CHIPS BLD GLU A4253 PLAZA PLAZA TEST/REAG 1 [facility] HEALTHCAR T STRIPS E E HOME BLD SOLUTIONS SOLUTIONS GLU MON-50 H-REFLEX 79840 GNOSTICISM GUNNAR AMPLT&LAT 1 NEUROLOGY [facility]ENTER GASTRCN/S LUCIAN OLEUS MUSC HEMOGLOBI 69689 FAMILY FAMILY N 1 CARE CARE GLYCOSYLA ASSOCIATE ASSOCIATE STELLA A1C S S GLUCOSE 26211 FAMILY MULBERRY POST 1 CARE OFELIA GLUCOSE ASSOCIATE DOSE S NORMAL A4256 PLAZA PLAZA LOW AND 1 HEALTH[facility] HEALTHCAR HIGH E E CALIBRATO SOLUTIONS SOLUTIONS R SOLUTION/ CHIPS BLD GLU A4253 PLAZA PLAZA TEST/REAG 1 HEALTHCAR HEALTHCAR T STRIPS E E HOME BLD SOLUTIONS SOLUTIONS GLU MON-50 LANCETS A4259 PLAZA PLAZA PER BOX 1 HEALTHCAR HEALTHCAR OF 100 E E SOLUTIONS SOLUTIONS LANCETS A4259 PLAZA PLAZA PER BOX 1 HEALTHCAR HEALTHCAR OF 100 E E SOLUTIONS SOLUTIONS BLD GLU A4253 PLAZA PLAZA TEST/REAG 1 HE[facility]CAR HEALTHCAR T STRIPS E E HOME BLD SOLUTIONS SOLUTIONS GLU MON-50 BLD GLU A4253 PLAZA PLAZA TEST/REAG 0 HEALTHCAR HEALTHCAR T STRIPS E E HOME BLD SOLUTIONS SOLUTIONS GLU MON-50 LANCETS A4259 PLAZA PLAZA PER BOX 0 HEALTHCAR HEALTHCAR OF 100 E E SOLUTIONS SOLUTIONS NORMAL A4256 PLAZA PLAZA LOW AND 0 HEALTHCAR HEALTHCAR HIGH E E CALIBRATO SOLUTIONS SOLUTIONS R SOLUTION/ CHIPS LANCETS A4259 PLAZA PLAZA PER BOX 0 HEALTHCAR HEALTHCAR OF 100 E E SOLUTIONS SOLUTIONS BLD GLU A4253 PLAZA PLAZA TEST/REAG 0 HEALTHCAR HEALTHCAR T STRIPS E E HOME BLD SOLUTIONS SOLUTIONS GLU MON-50 [facility] A4258 PLAZA PLAZA WERED 0 HEALTHCAR HEALTHCAR DEVICE E E FOR SOLUTIONS SOLUTIONS LANCET EACH OPHTH 84662 ROSE KENDRICK [facility] 0 XM&EVAL COMPRHNSV ESTAB PT 1/> RADEX 91969 GHASSAN FERRELL SPINE 0 [facility] LUMBOSACR INC INC AL MINIMUM 4 VIEWS URNLS DIP 38483 FAMILY MULBERRY 0 CARE OFELIA STICK/TAB ASSOCIATE LET RGNT S NON-AUTO W/O MICRSCP IIV 18437 FAMILY MULBERRY VACCINE 0 CARE OFELIA PRESERV ASSOCIATE FREE S INCREASED AG CONTENT IM ADMINISTR G0008 FAMILY MULBERRY ATION OF 0 CARE OFELIA INFLUEN[place] [address] COMBINED COMBINED THYROID 0 PHYSICIAN PHYSICIAN STIMULATI S LA S LA NG HORMONE TSH CREATININ 92474 FAMILY MULBERRY E OTHER 0 CARE OFELIA SOURCE ASSOCIATE S TRANSFERA 81669 FAMILY MULBERRY SE 0 CARE OFELIA ASPARTATE ASSOCIATE AMINO S AST SGOT TRANSFERA 45503 FAMILY MULBERRY SE 0 CARE OFELIA ALANINE ASSOCIATE AMINO ALT S SGPT BASIC 06586 COMBINED COMBINED METABOLIC 0 PHYSICIAN PHYSICIAN PANEL S LA S LA CALCIUM TOTAL COLLECTIO 43917 FAMILY MULBERRY N VENOUS 0 CARE OFELIA BLOOD ASSOCIATE VENIPUNCT S URE HEMOGLOBI 76794 FAMILY MULBERRY N 0 CARE OFELIA GLYCOSYLA ASSOCIATE STELLA A1C S CULTURE 50994 COMBINED COMBINED BACTERIAL 0 PHYSICIAN PHYSICIAN S LA S LA QUANTTATI VE COLONY COUNT URINE ALBUMIN 72478 FAMILY MULBERRY URINE 0 CARE OFELIA MICROALBU ASSOCIATE MIN S SEMIQUANT ITATIVE GLUCOSE 08473 FAMILY MULBERRY POST 0 CARE OFELIA GLUCOSE ASSOCIATE DOSE S URNLS DIP 71173 FAMILY MULBERRY 0 CARE OFELIA STICK/TAB ASSOCIATE LET RGNT S NON-AUTO W/O MICRSCP LIPID 96844 FAMILY FAMILY PANEL 0 CARE EVENT COORDINATOR ASSOCIATE S S PHYS G0179 FAMILY MULBERRY RE-CERT 0 CARE OFELIA MCR-COVR ASSOCIATE [facility] S SRVC RE-CERT PRD BLD GLU A4253 DOCTOR DOCTOR TEST/REAG 0 DIABETIC DIABETIC T STRIPS SUPPLY SUPPLY HOME [employer] INC GLU MON-50 LANCETS A4259 DOCTOR DOCTOR PER BOX 0 DIABETIC DIABETIC OF 100 SUPPLY SUPPLY INC INC NORMAL A4256 DOCTOR DOCTOR LOW AND 0 DIABETIC DIABETIC HIGH SUPPLY SUPPLY [employer] INC R SOLUTION/ CHIPS LANCETS A4259 DOCTOR DOCTOR PER BOX 0 DIABETIC DIABETIC OF 100 SUPPLY SUPPLY INC INC NORMAL A4256 DOCTOR DOCTOR LOW AND 0 DIABETIC DIABETIC HIGH SUPPLY SUPPLY [employer] R SOLUTION/ CHIPS BLD GLU A4253 DOCTOR DOCTOR TEST/REAG 0 DIABETIC DIABETIC T STRIPS SUPPLY SUPPLY HOME [employer] INC GLU MON-50 PHYS G0179 FAMILY MULBERRY, RE-CERT 0 CARE JAIR T MCR-COVR ASSOCIATE [facility] S SRVC RE-CERT PRD BLOOD 85424 FAMILY MULBERRY, COUNT 0 CARE JAIR T COMPLETE ASSOCIATE AUTO&AUTO S DIFRNTL WBC ALBUTEROL J7613 YOUR YOUR INHAL 0 PHARMACY PHARMACY NON-CP PROD THRU DME U DOSE 1 MG BLOOD 66880 FAMILY MULBERRY, COUNT 0 CARE JAIR T COMPLETE ASSOCIATE AUTO&AUTO S DIFRNTL WBC ADMN SET A7003 YOUR YOUR SM VOL 0 PHARMACY PHARMACY NONFILTR PNEUMAT NEBULIZR DISPBL ALBUTEROL J7620 YOUR YOUR TO 2.5 0 PHARMACY PHARMACY MG & IPRATROPI UM BROM TO 0.5 MG PHRM Q0513 YOUR YOUR DISPENSIN 0 PHARMACY PHARMACY G FEE INHALATIO N RX; PER 30 DAYS WATER E0217 [facility] CIRCULATI 0 MEDICAL MEDICAL NG HEAT SOLUTIONS SOLUTIONS PAD WITH PUMP SPRING-PO A4258 DOCTOR DOCTOR WERED 0 DIABETIC DIABETIC DEVICE SUPPLY SUPPLY FOR [employer] INC LANCET EACH NORMAL A4256 DOCTOR DOCTOR LOW AND 0 DIABETIC DIABETIC HIGH SUPPLY SUPPLY CALIBRATO INC INC R SOLUTION/ CHIPS BLD GLU A4253 DOCTOR DOCTOR TEST/REAG 0 DIABETIC DIABETIC T STRIPS SUPPLY SUPPLY HOME BLD INC INC GLU MON-50 LANCETS A4259 DOCTOR DOCTOR PER BOX 0 DIABETIC DIABETIC OF 100 SUPPLY SUPPLY INC INC RADIOLOGI 14779 [place] Jovanni COLLIER EXAM 9 MEDICAL CORAZON CHEST 2 IMAGING VIEWS ASSOCIATE FRONTAL&L S ATERAL LANCETS A4259 DOCTOR DOCTOR PER BOX 9 DIABETIC DIABETIC OF 100 SUPPLY SUPPLY INC INC NORMAL A4256 DOCTOR DOCTOR LOW AND 9 DIABETIC DIABETIC HIGH SUPPLY SUPPLY [employer] INC INC R SOLUTION/ CHIPS BLD GLU A4253 DOCTOR DOCTOR TEST/REAG 9 DIABETIC DIABETIC T STRIPS SUPPLY SUPPLY HOME BLD INC INC GLU MON-50 SPRING-PO A4258 DOCTOR DOCTOR WERED 9 DIABETIC DIABETIC DEVICE SUPPLY SUPPLY FOR [employer] INC LANCET EACH REPL MAURICIO A4235 DOCTOR DOCTOR LITHIUM 9 DIABETIC DIABETIC MED NECES SUPPLY SUPPLY YANELI BG INC INC MON OWN PT EA ADMINISTR G0008 FAMILY MULBERRY, ATION OF 9 CARE JAIR T INFLUENZA ASSOCIATE VIRUS S VACCINE IIV3 12315 FAMILY MULBERRY, VACCINE 9 CARE JAIR T SPLIT ASSOCIATE VIRUS 0.5 S ML DOSAGE IM USE LIPID 05492 COMBINED COMBINED PANEL 9 PHYSICIAN [place] [address] COMBINED COMBINED THYROID 9 PHYSICIAN PHYSICIAN STIMULATI S LAB S LAB NG HORMONE TSH HEMOGLOBI 82904 FAMILY MULBERRY, N 9 CARE JAIR T GLYCOSYLA ASSOCIATE STELLA A1C S COLLECTIO 76915 FAMILY MULBERRY, N VENOUS 9 CARE JAIR T BLOOD ASSOCIATE VENIPUNCT S URE GLUCOSE 54167 FAMILY MULBERRY, POST 9 CARE JAIR T GLUCOSE ASSOCIATE DOSE S LIPOPROTE 74390 LAB REAGAN LAB REAGAN IN BLOOD 9 [facility] HOLDINGS NUMBERS & SUBCLASSE S COMPREHEN 39918 COMBINED COMBINED SIVE 9 PHYSICIAN PHYSICIAN METABOLIC S LAB S LAB PANEL URNLS DIP 81334 FAMILY MULBERRY, 9 CARE JAIR T STICK/TAB ASSOCIATE LET RGNT S NON-AUTO W/O MICRSCP PHYS G0179 FAMILY AMBARBERRY, RE-CERT 9 SUSAN Pascual MCR-COVR ASSOCIATE [facility] S SRVC RE-CERT PRD BLD GLU A4253 DOCTOR DOCTOR TEST/REAG 9 DIABETIC DIABETIC T STRIPS SUPPLY SUPPLY HOME BLD INC INC GLU MON-50 NORMAL 200 A4256 DOCTOR DOCTOR LOW AND 9 DIABETIC DIABETIC HIGH SUPPLY SUPPLY CALIBRATO INC INC R SOLUTION/ CHIPS LANCETS A4259 DOCTOR DOCTOR PER BOX 9 DIABETIC DIABETIC OF 100 SUPPLY SUPPLY INC INC BLOOD 09394 FAMILY GUAJARDO, COUNT 9 CARE JAIR Pascual COMPLETE ASSOCIATE AUTO&AUTO S DIFRNTL WBC PHYS G0179 FAMILY BENNETT, RE-CERT 9 SUSAN Pascual MCR-COVR [facility]OC[facility] S SRVC RE-CERT PRD NORMAL A4256 DOCTOR DOCTOR LOW AND 9 DIABETIC DIABETIC HIGH SUPPLY SUPPLY CALIBRATO INC INC R SOLUTION/ CHIPS BLD GLU A4253 DOCTOR DOCTOR TEST/REAG 9 DIABETIC DIABETIC T STRIPS SUPPLY SUPPLY HOME BLD INC INC GLU MON-50 LANCETS A4259 DOCTOR DOCTOR PER BOX 9 DIABETIC DIABETIC OF 100 SUPPLY SUPPLY INC INC BASIC 35257 COMBINED COMBINED METABOLIC 9 PHYSICIAN PHYSICIAN PANEL S LAB S LAB CALCIUM TOTAL PHYS CERT G0180 FAMILY GUAJARDO, MCR-COVR 9 SUSAN Pascual YANELI [facility] ASSOCIATE SRVC PER S CERT PRD PHYS CERT G0180 FAMILY GUAJARDO, MCR-COVR 9 SUSAN Pascual YANELI [facility] ASSOCIATE SRVC PER S CERT PRD SPHERE V2200 SHILOHTR[facility]ITY RDZA BIFOCL 9 VISION VISION PLANO TO PLUS/ANILA S 4.00D PER LENS BIFOCL V2203 SHILOHTRINITY MATAMOROS PLANO +/- 9 VISION VISION 4.00D SPHER 0.12-2.00 D CYL-EA FRAMES V2020 SHILOH MATAMOROS PURCHASES 9 VISION VISION CATARACT 83430 [facility] REMOVAL 9 EYE , NEENA Lerner [facility] POSTERIOR V2632 GHASSAN FERRELL CHAMBER 9 [facility] INTRAOCUL INC INC AR LENS GLUC BLD 77239 GHASSAN FERRELL GLUC MNTR 9 [facility] DEV INC INC CLEARED FDA SPEC HOME USE REPL MAURICIO A4235 DOCTOR DOCTOR LITHIUM 9 DIABETIC DIABETIC MED NECES SUPPLY SUPPLY YANELI BG INC INC MON OWN PT EA SPRING-PO A4258 DOCTOR DOCTOR WERED 9 DIABETIC DIABETIC DEVICE SUPPLY SUPPLY FOR INC INC LANCET EACH NORMAL A4256 DOCTOR DOCTOR LOW AND 9 DIABETIC DIABETIC HIGH SUPPLY SUPPLY CALIBRATO INC INC R SOLUTION/ CHIPS LANCETS A4259 DOCTOR DOCTOR PER BOX 9 DIABETIC DIABETIC OF 100 SUPPLY SUPPLY INC INC BLD GLU A4253 DOCTOR DOCTOR TEST/REAG 9 DIABETIC DIABETIC T STRIPS SUPPLY SUPPLY HOME BLD INC INC GLU MON-50 OPH BMTRY 48737 [facility] , [facility]EENA Lerner [facility]AP[facility] A-SCAN IO LENS PWR IDANIA CATARACT 62140 [facility] REMOVAL 8 EYE , NEENA Lerner [facility] OPHTH 85396 [facility] 8 JEFE A JEFE A XM&EVAL COMPRHNSV ESTAB PT 1/> ALBUTEROL J7620 YOUR YOUR TO 2.5 8 PHARMACY PHARMACY [employer] IPRATROPI UM BROM TO 0.5 MG ADMN SET A7003 YOUR YOUR SM VOL 8 PHARMACY PHARMACY NONFILTR [employer] PNEUMAT NEBULIZR DISPBL PHRM Q0513 YOUR YOUR DISPENSIN 8 PHARMACY PHARMACY G FEE [employer] INHALATIO N RX; PER 30 DAYS IIV3 12706 Jack CASTAÑEDA VACCINE 8 CARE G SPLIT ASSOCIATE VIRUS 0.5 S ML DOSAGE IM USE ADMINISTR G0008 Jack CASTAÑEDA ATION OF 8 CARE G INFLUENZA ASSOCIATE VIRUS S VACCINE BLD GLU A4253 DOCTOR DOCTOR TEST/REAG 8 DIABETIC DIABETIC T STRIPS SUPPLY SUPPLY HOME BLD INC INC GLU MON-50 NORMAL A4256 DOCTOR DOCTOR LOW AND 8 DIABETIC DIABETIC HIGH SUPPLY SUPPLY CALIBRATO INC INC R SOLUTION/ CHIPS LANCETS A4259 DOCTOR DOCTOR PER BOX 8 DIABETIC DIABETIC OF 100 SUPPLY SUPPLY INC INC ADMN SET A7003 YOUR YOUR SM VOL 8 PHARMACY PHARMACY NONFILTR [employer] PNEUMAT NEBULIZR DISPBL ALBUTEROL J7620 YOUR YOUR TO 2.5 8 PHARMACY PHARMACY [employer] IPRATROPI UM BROM TO 0.5 MG PHRM Q0513 YOUR YOUR DISPENSIN 8 PHARMACY PHARMACY G FEE [employer] INHALATIO N RX; PER 30 DAYS SPRING-PO A4258 DOCTOR DOCTOR WERED 8 DIABETIC DIABETIC DEVICE SUPPLY SUPPLY FOR INC INC LANCET EACH REPL MAURICIO A4235 DOCTOR DOCTOR LITHIUM 8 DIABETIC DIABETIC MED NECES SUPPLY SUPPLY YANELI BG INC INC MON OWN PT EA LANCETS A4259 DOCTOR DOCTOR PER BOX 8 DIABETIC DIABETIC OF 100 SUPPLY SUPPLY INC INC BLD GLU A4253 DOCTOR DOCTOR TEST/REAG 8 DIABETIC DIABETIC T STRIPS SUPPLY SUPPLY HOME BLD INC INC GLU MON-50 NORMAL A4256 DOCTOR DOCTOR LOW AND 8 DIABETIC DIABETIC HIGH SUPPLY SUPPLY [employer] R SOLUTION/ CHIPS COMPUTER- 08867 [place] KAE, AIDED 8 MEDICAL MAISHA P DETECTION IMAGING ASSOCIATE SCREENING S MAMMOGRAP HY SCREENING 83998 [place] KAE MEDICAL MAISHA P MAMMOGRAP IMAGING HY ASSOCIATE BILATERAL S BLD GLU A4253 DOCTOR DOCTOR TEST/REAG 8 DIABETIC DIABETIC T STRIPS SUPPLY SUPPLY HOME BLD INC INC GLU MON-50 LANCETS A4259 DOCTOR DOCTOR PER BOX 8 DIABETIC DIABETIC OF 100 SUPPLY SUPPLY INC INC NORMAL A4256 DOCTOR DOCTOR LOW AND 8 DIABETIC DIABETIC HIGH SUPPLY SUPPLY [employer] R SOLUTION/ CHIPS NEBULIZER E0570 GUERO JACK WITH 8 HOME MED HOME MED COMPRESSO EQUIP. [employer] NEBULIZER E0570 GUERO JACK WITH 8 HOME MED HOME MED COMPRESSO EQUIP. [employer] ARTHROCEN 50931 [place] TESIS 8 AND HAND AND HAND ASPIR&/IN SURGEONS SURGEONS J MAJOR PSC PSC JT/BURSA W/O US HYALURONA J7323 [place] N/DERIVAT 8 AND HAND AND HAND MAEVE SURGEONS SURGEONS EUFLEXXA PSC PSC IA INJ PER DOSE LANCETS A4259 DOCTOR DOCTOR PER BOX 8 DIABETIC DIABETIC OF 100 SUPPLY SUPPLY INC INC BLD GLU A4253 DOCTOR DOCTOR TEST/REAG 8 DIABETIC DIABETIC T STRIPS SUPPLY SUPPLY HOME [employer] GLU MON-50 NEBULIZER E0570 GUERO JACK WITH 8 HOME MED HOME MED COMPRESSO EQUIP. EQUIP. R [employer] ARTHROCEN 46083 [place] TESIS 8 AND HAND AND HAND ASPIR&/IN SURGEONS SURGEONS J MAJOR PSC PSC JT/BURSA W/O US HYALURONA J7323 [place] N/DERIVAT 8 AND HAND AND HAND MAEVE SURGEONS SURGEONS EUFLEXXA PSC PSC IA INJ PER DOSE ARTHROCEN 34340 [place] TESIS 8 AND HAND AND HAND ASPIR&/IN SURGEONS SURGEONS J MAJOR PSC PSC JT/BURSA W/O US HYALURONA J7323 [place] N/DERIVAT 8 AND HAND AND HAND MAEVE SURGEONS SURGEONS EUFLEXXA PSC PSC IA INJ PER DOSE Encounters Encounter Start End Date Code Location Performer Type Date [facility] - 7 7 [facility] - 7 7 [facility] - 6 6 [facility]PAT[facility] - 6 6 [facility]PATI[facility] - 6 6 [facility]PATIEN [facility] OFFICE [address]00 [facility] OUTPATIEN 6 6 PHYSICIAN KIMBERLY T NEW 20 S GROUP MINUT[facility] OFFICE 13820 [facility] PETTEY OUTPATIEN 6 6 PHYSICIAN JAM T NEW 20 S GROUP MINUTES [facility] 5 5 [facility] OUTPATIEN [facility] EMERGENCY [id number] [place] Lerner 5 5 [facility] T VISIT P LOW/MODER [facility]VERITY [facility] - 4 4 [facility]PATIEN [facility] OFFICE 18749 [facility] OUTPATIEN 3 3 OFELIA OFELIA T [facility]ISIT 15 MINUTES [facility] - 3 3 [facility] [place] - 2 2 [facility] 2 2 [facility] - 2 2 [facility] 2 2 [facility] [place] - 2 2 [facility] OUTPATIEN [facility] EMERGENCY 33479 AT[facility] STEWARD DEPT 2 2 EMERGENCY EDUARDO VISIT SERVICES [facility]IGH SEVERITY& THREAT [facility] - 2 2 [facility] OUTPATIEN [facility] EMERGENCY [id number] [place] 2 2 [facility] VISIT [facility]IGH/URGE NT SEVERITY [facility] [place] - 1 1 [facility] OUTPATIEN [facility] [place] [facility] 1 1 [facility] OUTPATIEN [facility] EM[facility]GENC[facility] [id number] [facility] VISIT [facility]OW/MODER SEVERITY EMERGENCY 19092 AT[facility] STEWARD 1 1 [facility] T VISIT HIGH/URGE NT SEVERITY OFFICE 29389 [facility] OUTPATIEN 1 1 CARE OFELIA T VISIT ASSOCIATE 25 S MINUTES [facility] 0 0 [facility] OFFICE 69098 [facility] OUTPATIEN 0 0 [facility]ARE OF[facility]IA T VISIT ASSOCIATE 15 S MINUTES OFFICE 29709 [facility] OUTPATIEN 0 0 CARE OFELIA T VISIT ASSOCIATE 25 S MINUTES OFFICE 11655 [facility], OUTPATIEN 0 0 CARE JAIR T T VISIT ASSOCIATE 15 S MINUTES OFFICE 66573 [facility], OUTPATIEN 0 0 CARE JAIR T T VISIT ASSOCIATE 15 S MINUTES [facility] 9 9 [facility] T OFFICE 58838 [facility], OUTPATIEN 9 9 CARE JAIR T T VISIT ASSOCIATE 40 S MINUTES OFFICE 95009 [facility], OUTPATIEN 9 9 CARE JAIR T T VISIT ASSOCIATE 15 S MINUTES OFFICE 38440 [facility], OUTPATIEN 9 9 CARE JAIR T T VISIT ASSOCIATE 15 S MINUTES OFFICE 29740 [facility], OUTPATIEN 9 9 CARE JAIR T T VISIT ASSOCIATE 25 S MINUTES [facility] 9 9 [facility] T OFFICE 68431 [facility] 8 8 EYE , [facility] NEW/ESTAB PATIENT 60 MIN OFFICE 98275 FAMILY [facility], OUTPATIEN 8 8 CARE JAIR T T VISIT ASSOCIATE 25 S MINUTES [place]ICE 32184 [place] [facility] [place] [facility] 8 8 AND HAND AND HAND T VISIT SURGEONS SURGEONS 10 PSC PSC MINUTES
--- OUTSIDE RECORDS SUMMARY | 2017-01-23 09:36 | External Medical Summary Rpt ---
Author Author , Organization [employer] Address Unknown Phone Unavailable Care Team Providers Care Traveling Inventory Associate Name Role Phone [facility] BEINEKE ESAU, BEERIC Unavailable Unavailable MARIANO GUTIERREZ Unavailable Unavailable BESSON, BESSON Unavailable Unavailable BESSON VIOLETA, BESSON Unavailable Unavailable VIOLETA [facility], Unavailable Unavailable [facility], Unavailable Unavailable [facility] NEENA RODRIGUEZ, Unavailable Unavailable NEENA RODRIGUEZ CANNON, CANNON Unavailable Unavailable ESTEVAN MCCAIN Unavailable Unavailable [facility] Unavailable Unavailable SERVICE, [employer] [facility] Un[facility] Unavailable [place], [facility]available Unavailable [place], [facility] Unavailable Unavailable LAB, [facility] Unavailable Unavailable [facility] [place], [facility] Jack [facility] [...] Unavailable Unavailable INC, [facility], [facility] Unavailable Unavailable SOLUTIONS, [facility] ROSE KENDRICK, ROSE KENDRICK Unavailable Unavailable ROSE KENDRICK, ROSE KENDRICK Unavailable Unavailable ROSE, JEFE A, Unavailable Unavailable ROSE, JEFE A [facility], Unavailable Unavailable [facility], Unavailable Unavailable [facility], Unavailable Unavailable [facility] JASPER VITOR, JASPER Unavailable Unavailable VITOR [facility] Unavailable Unavailable [facility], [facility] Unavailable Unavailable [facility], [facility] Unavailable Unavailable HOLDINGS, [facility] JOHNSON KIMBERLY, JOHNSON Unavailable Unavailable KIMBERLY [facility] Unavailable Unavailable SERVICES, [facility] MCKEMIE JR JUANITA, Unavailable Unavailable [...] Unavailable Unavailable EQUIPME, [facility] Unavailable Unavailable SUPPLY, [facility] Unavailable Unavailable #[id number], [facility] [address]591 [facility] # Unavailable Unavailable [id number], [facility] # [id number] [facility] Unavailable Unavailable [facility]ARMAC[facility], Unavailable [facility]available [facility], Unavailable Unavailable [facility] Purpose Continuity of Care Document - 07-25-2007 through 2016 Problems Code Diagnosis DOS Provider Status J441 CHRONIC 09-18-[address] 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 RESPIRATORY HOME FAILURE MEDICAL WITH EQUIPME HYPOXIA J449 CHRONIC 09-10-2016 [facility] P[facility] DISEASE UNS R1033 PERIUMBILIC 08-23-2016 [facility] U06656 PAIN IN 08-07-2016 [facility] R600 LOCALIZED 08-07-2016 [facility] E039 HYPOTHYROID 07-14-2016 [facility] UNSPECIFIED INC E119 TYPE 2 07-14-2016 [facility] MELLITUS INC WITHOUT COMPLICATIO NS E785 HYPERLIPIDE 07-14-2016 [facility] UNSPECIFIED INC I10 ESSENTIAL 07-14-2016 [facility] HYPERTENSIO INC N R05 COUGH 07-13-2016 [facility] R0602 SHORTNESS 07-13-2016 [facility] OF [facility]ATH [facility] R918 OTHER 07-13-2016 [place] NONSPECIFIC MEDICAL ABNORMAL IMAGING ASS FINDING OF LUNG FIELD 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 OF FACE D2239 MELANOCYTIC 02-03-2016 [facility] NEVI OF PHYSICIANS OTHER PARTS GROUP OF FACE L989 DISORDER 02-03-2016 COMM[facility] THE SKIN & ANESTH OF SUBCUTANEOU THE BLUE S TISSUE UNS Q13285 ENCOUNTER 02-01-2016 [facility] CARIOVASCUL AR EXAM E27393 ENCOUNTER 02-01-2016 [facility] AL LABORATORY EXAM D492 NEOPLASM OF 01-20-2016 [facility] UNS PHYSICIANS BEHAVIOR GROUP BONE SOFT TISSUE & SKIN D4989 NEOPLASM OF 01-20-2016 [facility] PHYSICIANS UNSPECIFIED GROUP BEHAVIOR OTH SPEC SITES M170 BILATERAL 11-02-2015 [facility] PRIMARY PHYSICIANS OSTEOARTHRI GROUP TIS OF KNEE 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 NEC RIGHT GROUP KNEE X22594 VARUS 11-02-2015 [facility] DEFORMITY PHYSICIANS NEC LEFT GROUP KNEE 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 7242 LUMBAGO 02-14-2015 [facility] 12646 SPASM OF 02-14-2015 [facility]CLE [facility] 41814 ABDOMINAL 02-14-2015 [place] PAIN, MEDICAL UNSPECIFIED IMAGING ASS SITE 89254 DIAB W/O 01-14-2015 HOME HEALTH COMP TYPE ADVISORS II/UNS NOT STATED UNCNTRL 05576 PAIN IN OR 11-09-2014 [facility] 4019 UNSPECIFIED 11-09-2014 [facility] [place] 09396 OPEN WOUND 11-09-2014 [place] [facility] WITHOUT IMAGING ASS MENTION COMPLICATIO N 920 CONTUSION 11-09-2014 [place] [facility] P NECK EXCEPT EYE 9219 UNSPECIFIED 11-09-2014 [place] CONTUSION MEDICAL OF EYE IMAGING ASS E8498 OTHER 11-09-[address] [facility] P OCCURRENCE E8859 FALL FROM 11-09-2014 [facility] P TRIPPING OR STUMBLING 3540 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[facility] SYNDROME 496 CHRONIC 06-24-2014 [place] [facility] NEC 7862 COUGH 06-24-2014 [facility] 55528 ASTHMA, 02-16-2014 [facility] UNSPECIFIED HOME , MEDICAL UNSPECIFIED EQUIPME STATUS 94417 OBSTRUCTIVE 12-19-2012 [facility] WITH EXACERBATIO N 7850 UNSPECIFIED 06-19-2012 ANN ADRIAN JUANITA TACHYCARDIA 4293 CARDIOMEGAL 05-10-2012 [place] [facility] 4659 ACUTE URIS 05-10-2012 [place] [facility] UNSPECIFIED INC SITE 5119 UNSPECIFIED 05-10-2012 [place] PLEURAL MEDICAL EFFUSION [facility] 93415 OSTEOARTHRO 03-21-2012 [facility] JAM SIS UNSPEC WHETHER GEN/LOC LOWER LEG 81988 PAIN IN 02-29-2012 [facility] JAM JOINT, LOWER LEG 4871 INFLUENZA 10-04-2011 [facility] WITH OTHER OFELIA RESPIRATORY MANIFESTATI ONS 57698 INFLUENZA 09-29-2011 AT[facility] D/T ID EMERGENCY STORM FLU SERVICES VIRUS OTH RESP MANIF 5199 UNSPECIFIED 09-29-2011 [place] DISEASE OF MEDICAL IMAGING ASS RESPIRATORY SYSTEM 86204 UNSPECIFIED 08-07-2011 ROSE KENDRICK TEAR FILM INSUFFICIEN CY V7612 OTHER 04-27-2011 [place] SCREENING [facility] MAMMOGRAM INC 9221 CONTUSION 04-17-2011 [facility] EMERGENCY WALL SERVICES E8889 UNSPECIFIED 04-17-2011 [facility] EMERGENCY SERVICES 2449 UNSPECIFIED 04-16-2011 [facility] HYPOTHYROID [place] ISM 5990 URINARY 04-16-2011 [facility] TRACT [facility]YSICI[facility] INFECTION LA SITE NOT SPECIFIED 59277 DIAB 10-18-2010 [facility] TYPE II/UNS NOT UNCNTRL 3572 POLYNEUROPA 10-18-2010 [facility] TH[facility] IN [facility] DIABETES [facility] 2724 OTHER AND 10-16-2010 [facility] HYPERLIPIDE TALISHA 7292 UNSPECIFIED 10-16-2010 [facility] NEURALGIA [facility] NEURITIS AND RADICULITIS 67770 AFTER-CATAR 06-12-2010 ROSE MARKS ACT, OBSCURING VISION V0481 NEED 04-25-2010 [facility] PROPHYLACTI [facility] C VACCINATION &INOCULATIO N FLU 35221 CHRONIC 02-10-2010 [facility] OBSTRUCTIVE [facility] ASTHMA WITH EXACERBATIO N 19339 PRIMARY 02-10-2010 [facility] LOCALIZED [facility]ATES OSTEOARTHRO SIS LOWER LEG 7823 EDEMA 02-10-2010 [facility] 19909 GENERALIZED 09-20-2009 [facility] OSTEOARTHRO SIS UNSPECIFIED SITE 7245 UNSPECIFIED 03-04-2009 [facility] BACKACHE [facility] 1179 OTHER AND 02-03-2009 [facility] UNSPECIFIED ASSOCIATES MYCOSES 54706 CHRONIC 02-03-2009 [facility] OBSTRUCTIVE [facility]OCIATES ASTHMA UNSPECIFIED 96284 OSTEOARTHRO 02-03-2009 [facility] S INVLV MX ASSOCIATES SITES BUT NOT SPEC GEN 93858 ASTHMA 12-09-2008 [facility] UNSPECIFIED ASSOCIATES WITH EXACERBATIO N 37688 CHRONIC 11-26-2008 [facility] OBSTRUCTIVE [facility] ASTHMA W/STATUS ASTHMATICUS 37455 UNSPECIFIED 11-26-2008 [facility] URINARY ASSOCIATES INCONTINENC E 20869 SHORTNESS 09-30-2008 [facility] OF BREATH ASSOCIATES V431 LENS 08-24-2008 SHILOH REPLACED BY VISION OTHER MEANS 58062 NUCLEAR 08-17-2008 [facility] 3669 UNSPECIFIED 08-17-2008 ROSE, CATARACT JEFE A 90907 DIAB 06-15-2008 [place] W/OPHTH [facility]YE MANIF[facility]S INSTITUTE TYPE II/UNS NOT UNCNTRL 3688 OTHER 06-15-2008 [place] SPECIFIED [facility] VISUAL INSTITUTE DISTURBANCE S 97684 DERMATOCHAL 06-15-2008 [facility] 50481 PAIN IN 04-01-2008 [facility] JOINT, ASSOCIATES [...] HOME 85%/>02 MEDICAL MEDICAL CONC AT [facility] FLW RATE PRTBLE E0431 [facility] GASEOUS 7 HOME HOME O2 SYS MEDICAL MEDICAL RENT; EQUIPME EQUIPME FLWMTR HUMIDFR&M ASK ADMN SET A7005 YOUR YOUR W/SM VOL 7 PHARMACY PHARMACY NONFILTR [facility] NEBULIZR NON-DISPB L ALBUTEROL J7613 YOUR YOUR INHAL 7 PHARMACY PHARMACY NON-CP [facility] PROD THRU DME U DOSE 1 MG AREO MASK A7015 YOUR YOUR USED W/ 7 PHARMACY PHARMAC[place] [address] [facility] ABDOMEN & 7 MEM HOSP [facility] PELVIS INC INC W/O CONTRAST MATERIAL O2 CONC 1 E1390 [facility] GUERO DEL PORT 7 HOME HOME 85%/>02 MEDICAL MEDICAL CONC AT [facility] FLW RATE PRTBLE E0431 [facility] GUERO GASEOUS 7 HOME HOME O2 SYS MEDICAL MEDICAL RENT; EQUIPME EQUIPME FLWMTR HUMIDFR&M ASK DUP-SCAN 72340 [place] CANNON XTR VEINS 7 MEDICAL IMAGING UNILATERA ASS L/LIMITED STUDY O2 CONC 1 E1390 [facility] MOMIN PORT 6 HOME HOME 85%/>02 MEDICAL MEDICAL CONC AT EQUIPME EQUIPME PRSC FLW RATE PRTBLE E0431 [facility] JACK GASEOUS 6 HOME HOME O2 SYS MEDICAL MEDICAL RENT; EQUIPME EQUIPME FLWMTR HUMIDFR&M ASK RADIOLOGI 55813 EVE COLLIER 6 MEDICAL EXAMINATI IMAGING ON CHEST ASS SINGLE VIEW FRONTAL AMB A0427 [facility] SERVICE 6 AMBULANCE AMBULANCE ALS SERVICE SERVICE EMERGENCY TRANSPORT LEVEL 1 ECG 15596 [facility] ROUTINE 6 [facility] W/LEAST P 12 LDS I&R ONLY GROUND A0425 [facility] MILEAGE 6 AMBULANCE AMBULANCE PER SERVICE SERVICE STATUTE MILE ANES 53129 [facility] INTEG 6 ANESTH MUSC & OF THE NRV HEAD BLUE NECK&[place] [address] CHIPPS PICKLESIM SURG 6 NELLI & ER [facility] PATHOLOGY ELLIOTILI GROSS&EDUARDO ROSCOPIC EXAM GLUC BLD 99232 [facility] FERRE[facility] GLUC MNTR 6 [facility] H[facility] DEV INC INC CLEARED FDA SPEC HOME USE ADJT TIS 58860 [facility] TRNS/REAR 6 PHYSICIAN PHYSICIAN GMT S GROUP S GROUP F/C/C/M/N /A/G/H/F 10SQCM/< ECG 11389 [facility] ROUTINE 6 [facility] W/LEAST P 12 LDS I&R ONLY COLLECTIO 85718 [facility] F[facility] N VENOUS 6 [facility] BLOOD INC INC VENIPUNCT URE ECG 71603 [facility] FERRELL ROUTINE 6 [facility] ECG INC INC W/LEAST 12 LDS TRCG ONLY W/O I&R COMPREHEN 02748 [facility] SIVE 6 [facility]OS[facility]OS[facility] METABOLIC INC INC PANEL ARTHROCEN 52522 [facility] PETFrank TESIS 6 PHYSICIAN JENNIFER ASPIR&/IN S GROUP J MAJOR JT/BURSA W/O US HYALURONA J7325 [facility] PETTEY N/DERIV 6 PHYSICIAN JENNIFER SYNVISC/S S [...] ADVISORS ADVISORS CALIBRATO R SOLUTION/ CHIPS RADEX 38964 [place] CLARYINEDONA ABDOMEN 1 5 MEDICAL ESAU IMAGING ANTEROPOS ASS TERIOR VIEW RADEX [address] [place] [address] [facility] SPINE 5 MEDICAL ESAU LUMBOSACR IMAGING AL [...] ADVISORS ADVISORS HOME BLD GLU MON-50 RADEX 98679 [facility] ORBITS 5 MEDICAL ELIA COMPLETE IMAGING MINIMUM 4 ASS VIEWS WRIST L3908 [facility] HAND 5 MEDICAL MEDICAL ORTHOSIS [place] EXT CONTROL COCK-UP PREFAB RADIOLOGI 71459 [facility] F[facility] C EXAM 4 MEM HOSP [...] SPRING-PO A4258 [facility] BEYOND WERED 4 MEDICAL BUSINESS 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 PROJECT 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 [place] FOR LANCET EACH BLD GLU [...] 85%/>02 MEDICAL MEDICAL CONC AT EQUIPME EQUIPME [facility] FLW RATE O2 CONC 1 E1390 [facility]ERO [...] PRS FLW RATE O2 CONC 1 E1390 [facility] MOMIN PORT 3 HOME HOME 85%/>02 MEDICAL [...] BLD GLU MON-50 O2 CONC 1 E1390 UGER[facility] MOMIN PORT 3 HOME HOME 85%/>02 MEDICAL MEDICAL CONC AT EQUIPME EQUIPME PRSC FLW RATE SPRING-PO A4258 [facility] 3 [facility] STATES DEVICE MEDICAL MEDICAL FOR SUPPLY SUPPLY LANCET EACH BLD GLU A4253 [facility] TEST/REAG 3 [facility] STATES T STRIPS MEDICAL MEDICAL HOME BLD SUPPLY SUPPLY GLU MON-50 NORMAL A4256 [facility] LOW AND 3 [facility] HIGH MEDICAL MEDICAL CALIBRATO SUPPLY SUPPLY R SOLUTION/ CHIPS LANCETS A4259 [facility] PER BOX 3 [facility] MEDICAL MEDICAL SUPPLY SUPPLY O2 CONC 1 E1390 [facility] SANCHEZRELL DEL PORT 3 HOME HOME 85%/>02 MEDICAL MEDICAL CONC AT EQUIPME EQUIPME PRSC FLW RATE O2 CONC 1 E1390 GUERO GUERO DEL PORT 3 HOME HOME 85%/>02 MEDICAL MEDICAL CONC AT EQUIPME EQUIPME PRSC FLW RATE LANCETS A4259 HOME HOME PER BOX 3 [place] [address] ADVISORS ADVISORS NORMAL A4256 HOME HOME LOW [...] 2.5 3 PHARMACY PHARMACY [employer] IPRATROPI UM BROM TO 0.5 MG [...] RENT; EQUIPME EQUIPME FLWMTR HUMIDFR&M ASK DETERMINA 79183 ROSE MARKS TION 3 REFRACTIV E STATE PUL G0424 [facility] REHAB 3 [facility] INCL EXER INC INC 1 HR PER SESS TO 2 PER DAY OPH 39309 ROSE MARKS MEDICAL 3 XM&EVAL COMPRHNSV ESTAB [...] SESS TO 2 PER DAY XTRNL ECG 96348 [facility] FERRE[facility] & 48 HR 2 MEM [facility] RECORDING INC INC O2 CONC 1 E1390 [facility] JACK DEL PORT 2 HOME HOME 85%/>02 MEDICAL MEDICAL CONC AT EQUIPME EQUIPME PRS FLW RATE EXTERNAL 69831 [facility] ECG 2 [facility]OS[facility] SCANNING INC INC ANALYSIS REPORT XTRNL ECG 89399 VIOLAMIWes KATHYKEMIE 2 JR JUANITA JR JUANITA CONTINUOU S RHYTHM W/I&R UP TO 48 HRS PRTBLE E0431 [facility] SANCHEZRELL GASEOUS 2 HOME HOME O2 SYS MEDICAL MEDICAL RENT; EQUIPMO EQUIPME FLWMTR HUMIDFR&M ASK PULM G0424 [facility] [...] PER SESS TO 2 PER DAY SPMTRY 73536 BESSON BESSON W/VC 2 VIOLETA VIOLETA EXPIRATOR Y JERMAIN W/WO MXML VOL VNTJ ALBUTEROL J7620 YOUR YOUR TO 2.5 2 PHARMACY PHARMACY MG & IPRATROPI UM BROM TO 0.5 MG ADMN SET A7003 YOUR YOUR SM VOL 2 PHARMACY PHARMACY NONFILTR PNEUMAT NEBULIZR DISPBL O2 CONC 1 E1390 GU[facility] JACK DEL PORT 2 HOME HOME 85%/>02 MEDICAL MEDICAL CONC AT EQUIPME EQUIPME [facility] FLW RATE PRTBLE E0431 GUERO GUERO GASEOUS 2 HOME HOME O2 SYS MEDICAL MEDICAL RENT; EQUIPME EQUIPME FLWMTR HUMIDFR&M ASK RADIOLOGI 28417 AMIRA AMIRA C EXAM 2 ELIA ELIA CHEST 2 VIEWS FRONTAL&L ATERAL PRESSURIZ 20650 [facility]RE[facility] ED/NONPRE 2 [facility] SSURIZED INC INC INHALATIO N TREATMENT RADIOLOGI 96158 [facility] C EXAM 2 MEDICAL ELIA CHEST [...] YNVISC-ON E IA INJ 1 MG RADIOLOGI 87600 [facility] F[facility] C EXAM 2 [facility] KNEE INC INC COMPLETE 4/MORE [...] HOME BLD SOLUTIONS SOLUTIONS GLU MON-50 PRESSURIZ 40865 [facility] FERRE[facility] ED/NONPRE 2 [facility] [place]URIZ[place] [address] [facility] INFUSION 2 [facility] THERAPY/P INC INC ROPHYLAXI S /DX 1ST TO 1 HR ECG 04257 [facility] ROUTINE 2 [facility] ECG INC INC W/LEAST 12 LDS TRCG ONLY W/O I&R CREATINE 50484 [facility] KINASE 2 [facility] TOTAL INC INC RADIOLOGI 43502 [facility] C 2 [facility] EXAMINATI INC INC ON CHEST SINGLE VIEW FRONTAL CREATINE 44712 [facility] FERRELL KINASE MB 2 MEM [facility] FRACTION INC INC ONLY IAADI 22174 [facility] FERRELL INFLUENZA 2 [facility] B VIRUS INC INC IAADI 33839 [facility] INFFLUENZ 2 [facility] A A VIRUS INC INC INJECTION J0456 [facility] 2 [facility] AZITHROMY INC INC RADHAMES 500 MG BLOOD 31288 [facility] COUNT 2 [facility] COMPLETE INC INC AUTO&AUTO DIFRNTL WBC BASIC 65657 [facility] METABOLIC 2 [facility] PANEL INC INC CALCIUM TOTAL NATRIURET 12630 [facility] IC 2 [facility] [place] [address] [facility] F[facility] TROPONIN 2 [facility] QUANTITAT INC INC MAEVE ECG 84210 ATUL STEWARD ROUTINE 2 EMERGENCY EDUARDO ECG SERVICES W/LEAST 12 LDS I&R ONLY CULTURE 89949 [facility] BACTERIAL 2 [facility] BLOOD INC INC AEROBIC W/ID ISOLATES SMR PRIM 87883 [facility] F[facility] SRC 2 [facility] GRAM/GIEM INC INC SA STAIN BCT FUNGI/SYLVIE L DETERMINA 86264 ROSE KENDRICK ROSE KENDRICK TION 2 REFRACTIV [...] YANELI SOLUTIONS SOLUTIONS BG MON OWND PT [facility] A4258 [facility] WERED 1 HEALTHCAR HEALTHCAR DEVICE E E FOR SOLUTIONS SOLUTIONS LANCET EACH COMPUTER- 55314 [facility] AIDED 1 [facility] DETECTION INC INC SCREENING MAMMOGRAP HY SCREENING G0202 [facility] FERRELL 1 [facility] MAMMOGRAP INC INC HY PASCALE INCL CAD WHEN PERFORMD RADEX 69275 [place] AMIRA STERNUM 1 MEDICAL ELIA MINIMUM 2 IMAGING VIEWS ASS RADIOLOGI 18477 [facility] FERRELL C EXAM 1 [facility] CHEST 2 INC INC VIEWS FRONTAL&[place] [address] COMBINED COMBINED THYROID 1 PHYSICIAN PHYSICIAN STIMULATI S LA S LA NG HORMONE TSH BASIC 20184 COMBINED COMBINED METABOLIC 1 PHYSICIAN PHYSICIAN PANEL S LA S LA CALCIUM TOTAL WALKER E0143 GUERO GUERO FOLDING 1 HOME HOME WHEELED MEDICAL MEDICAL ADJUSTABL EQUIPME EQUIPME E/FIXED HEIGHT [facility] A4258 PLAZA PLAZA WERED 1 HEALTHCAR [...] HOME BLD SOLUTIONS SOLUTIONS GLU MON-50 H-REFLEX 82937 [facility] AMPLT&LAT [address] [facility] ENC CENTER GASTRCN/S LUCIAN OLEUS MUSC HEMOGLOBI 54245 FAMILY FAMILY N 1 CARE CARE GLYCOSYLA ASSOCIATE ASSOCIATE STELLA A1C S S GLUCOSE 25623 FAMILY MULBERRY POST 1 CARE OFELIA GLUCOSE [...] E HOME BLD SOLUTIONS SOLUTIONS GLU MON-50 [facility] A4258 [facility] PLAZA WERED 0 HEALTHCAR HEALTHCAR DEVICE E E FOR SOLUTIONS SOLUTIONS LANCET EACH OPHTH 28140 ROSE KENDRICK [facility] MEDICAL 0 XM&EVAL COMPRHNSV ESTAB PT 1/> RADEX 10750 [facility] SPINE 0 [facility]OS[facility] LUMBOSACR INC INC AL MINIMUM 4 VIEWS URNLS DIP 87456 FAMILY MULBERRY 0 CARE OFELIA STICK/TAB ASSOCIATE LET RGNT S NON-AUTO W/O MICRSCP IIV 62737 FAMILY M[facility]Y VACCINE 0 CARE OFELIA PRESERV ASSOCIATE FREE S INCREASED AG CONTENT IM ADMINISTR G0008 FAMILY MUL[facility]Y ATION OF 0 CARE OFELIA INFLUEN[place] [address] COMBINED COMBINED THYROID 0 PHYSICIAN PHYSICIAN STIMULATI S LA S LA NG HORMONE TSH CREATININ 82990 FAMILY M[facility]Y E OTHER 0 CARE OFELIA SOURCE ASSOCIATE S TRANSFERA 28847 FAMILY MUL[facility]ERRY SE 0 CARE OFELIA ASPARTATE ASSOCIATE AMINO S AST SGOT TRANSFERA 25651 FAMILY M[facility]BERRY SE 0 CARE OFELIA ALANINE ASSOCIATE AMINO ALT S SGPT BASIC 70026 COMBINED COMBINED METABOLIC 0 PHYSICIAN PHYSICIAN PANEL S LA S LA CALCIUM TOTAL COLLECTIO 14285 FAMILY MULBERRY N VENOUS 0 CARE OFELIA BLOOD ASSOCIATE VENIPUNCT S URE HEMOGLOBI 38988 FAMILY MULBERRY N 0 CARE OFELIA GLYCOSYLA ASSOCIATE STELLA A1C S CULTURE 99632 COMBINED COMBINED BACTERIAL 0 PHYSICIAN PHYSICIAN S LA S LA QUANTTATI VE COLONY COUNT URINE ALBUMIN 72278 FAMILY MULBERRY URINE 0 CARE OFELIA MICROALBU ASSOCIATE MIN S SEMIQUANT ITATIVE GLUCOSE 92334 FAMILY [facility] POST 0 CARE OFELIA GLUCOSE ASSOCIATE DOSE S URNLS DIP 57615 FAMILY MULBERRY 0 CARE OFELIA STICK/TAB ASSOCIATE LET RGNT S NON-AUTO W/O MICRSCP LIPID 17094 FAMILY FAMILY PANEL 0 CARE INDUSTRIAL RELATIONS ANALYST ASSOCIATE S S PHYS G0179 FAMILY MULBERRY RE-CERT 0 CARE OFELIA MCR-COVR ASSOCIATE [facility] S SRVC RE-CERT PRD BLD GLU A4253 DOCTOR DOCTOR TEST/REAG 0 DIABETIC DIABETIC T STRIPS SUPPLY SUPPLY [employer] INC GLU MON-50 LANCETS A4259 DOCTOR DOCTOR PER BOX 0 DIABETIC DIABETIC OF 100 SUPPLY SUPPLY INC INC NORMAL A4256 DOCTOR DOCTOR LOW AND 0 DIABETIC DIABETIC HIGH SUPPLY SUPPLY [employer] INC R SOLUTION/ CHIPS LANCETS A4259 DOCTOR DOCTOR PER BOX 0 DIABETIC DIABETIC OF 100 SUPPLY SUPPLY INC INC NORMAL A4256 DOCTOR DOCTOR LOW AND 0 DIABETIC DIABETIC HIGH SUPPLY SUPPLY [email or web address] R SOLUTION/ CHIPS BLD GLU A4253 DOCTOR DOCTOR TEST/REAG 0 DIABETIC DIABETIC T STRIPS SUPPLY SUPPLY [employer] GLU MON-50 PHYS G0179 FAMILY MULBERRY, RE-CERT 0 CARE JAIR T MCR-COVR ASSOCIATE [facility] S SRVC RE-CERT PRD BLOOD 18330 FAMILY MULBERRY, COUNT 0 CARE JAIR T COMPLETE ASSOCIATE AUTO&AUTO S DIFRNTL WBC ALBUTEROL J7613 YOUR YOUR INHAL 0 PHARMACY PHARMACY NON-CP PROD THRU DME U DOSE 1 MG BLOOD 53511 FAMILY MULBERRY, COUNT 0 CARE JAIR T COMPLETE ASSOCIATE AUTO&AUTO S DIFRNTL WBC ADMN SET A7003 YOUR YOUR SM VOL 0 PHARMACY PHARMACY NONFILTR PNEUMAT NEBULIZR DISPBL ALBUTEROL J7620 YOUR YOUR TO 2.5 0 PHARMACY PHARMACY MG & IPRATROPI UM BROM TO 0.5 MG PHRM Q0513 YOUR YOUR DISPENSIN 0 PHARMACY PHARMACY G FEE INHALATIO N RX; PER 30 DAYS WATER [id number] [facility] CIRCULATI 0 MEDICAL MEDICAL NG HEAT SOLUTIONS SOLUTIONS PAD WITH PUMP SPRING-PO A4258 DOCTOR DOCTOR WERED 0 DIABETIC DIABETIC DEVICE SUPPLY SUPPLY FOR [employer] INC LANCET EACH NORMAL A4256 DOCTOR DOCTOR LOW AND 0 DIABETIC DIABETIC HIGH SUPPLY SUPPLY CAL[employer] INC INC R SOLUTION/ CHIPS BLD GLU A4253 DOCTOR DOCTOR TEST/REAG 0 DIABETIC DIABETIC T STRIPS SUPPLY SUPPLY HOME [employer]LD INC INC GLU MON-50 LANCETS A4259 DOCTOR DOCTOR PER BOX 0 DIABETIC DIABETIC OF 100 SUPPLY SUPPLY INC INC RADIOLOGI [address] [place] Jovanni COLLIER EXAM 9 MEDICAL CORAZON CHEST 2 IMAGING VIEWS ASSOCIATE FRONTAL&L S ATERAL LANCETS A4259 DOCTOR DOCTOR PER BOX 9 DIABETIC DIABETIC OF 100 SUPPLY SUPPLY INC INC NORMAL A4256 DOCTOR DOCTOR LOW AND 9 DIABETIC DIABETIC HIGH SUPPLY SUPPLY [employer]O INC INC R SOLUTION/ CHIPS BLD GLU A4253 DOCTOR DOCTOR TEST/REAG 9 DIABETIC DIABETIC T STRIPS SUPPLY SUPPLY HOME [employer] INC INC GLU MON-50 SPRING-PO A4258 DOCTOR DOCTOR WERED 9 DIABETIC DIABETIC DEVICE SUPPLY SUPPLY FOR [employer] INC LANCET EACH REPL MAURICIO A4235 DOCTOR DOCTOR LITHIUM 9 DIABETIC DIABETIC MED NECES SUPPLY SUPPLY YANELI [employer] INC INC MON OWN PT EA ADMINISTR G0008 FAMILY MULBERRY, ATION OF 9 CARE JAIR T INFLUENZA ASSOCIATE VIRUS S VACCINE IIV3 [id number] FAMILY MULBERRY, VACCINE 9 CARE JAIR T SPLIT ASSOCIATE VIRUS 0.5 S ML DOSAGE IM USE LIPID 93015 COMBINED COMBINED PANEL 9 PHYSICIAN [place] [address] COMBINED COMBINED THYROID 9 PHYSICIAN PHYSICIAN STIMULATI S LAB S LAB NG HORMONE TSH HEMOGLOBI 70070 FAMILY MULBERRY, N 9 CARE JAIR T GLYCOSYLA ASSOCIATE STELLA A1C S COLLECTIO 83942 FAMILY MULBERRY, N VENOUS 9 CARE JAIR T BLOOD ASSOCIATE VENIPUNCT S URE GLUCOSE 34437 FAMILY MULBERRY, POST 9 CARE JAIR T GLUCOSE ASSOCIATE DOSE S LIPOPROTE 63745 LAB REAGAN LAB REAGAN IN BLOOD 9 [facility] HOLDINGS NUMBERS & SUBCLASSE S COMPREHEN 52372 COMBINED COMBINED SIVE 9 PHYSICIAN PHYSICIAN METABOLIC S LAB S LAB PANEL URNLS DIP 07872 FAMILY MULBERRY, 9 CARE JAIR T STICK/TAB ASSOCIATE LET RGNT S NON-AUTO W/O MICRSCP PHYS G0179 FAMILY AMBARBERRY, RE-CERT 9 SUSAN Pascual MCR-COVR ASSOCIATE [facility] S SRVC RE-CERT PRD BLD GLU A4253 DOCTOR DOCTOR TEST/REAG 9 DIABETIC DIABETIC T STRIPS SUPPLY SUPPLY [employer] INC GLU MON-50 NORMAL 200 A4256 DOCTOR DOCTOR LOW AND 9 DIABETIC DIABETIC HIGH SUPPLY SUPPLY [employer] INC INC R SOLUTION/ CHIPS LANCETS A4259 DOCTOR DOCTOR PER BOX 9 DIABETIC DIABETIC OF 100 SUPPLY SUPPLY INC INC BLOOD 53581 FAMILY GUAJARDO, COUNT 9 CARE JAIR Pascual COMPLETE ASSOCIATE AUTO&AUTO S DIFRNTL WBC PHYS G0179 FAMILY BENNETT, RE-CERT 9 SUSAN Pascual MCR-COVR ASSOCIATE [facility] S SRVC RE-CERT PRD NORMAL A4256 DOCTOR DOCTOR LOW AND 9 DIABETIC DIABETIC HIGH SUPPLY SUPPLY CALIBRATO INC INC R SOLUTION/ CHIPS BLD GLU A4253 DOCTOR DOCTOR TEST/REAG 9 DIABETIC DIABETIC T STRIPS SUPPLY SUPPLY HOME BLD INC INC GLU MON-50 LANCETS A4259 DOCTOR DOCTOR PER BOX 9 DIABETIC DIABETIC OF 100 SUPPLY SUPPLY INC INC BASIC 55664 COMBINED COMBINED METABOLIC 9 PHYSICIAN PHYSICIAN PANEL S LAB S LAB CALCIUM TOTAL PHYS CERT G0180 FAMILY GUAJARDO, MCR-COVR 9 SUSAN Pascual [facility] ASSOCIATE SRVC PER S CERT PRD PHYS CERT G0180 FAMILY GUAJARDO, MCR-COVR 9 SUSAN Pascual [facility] ASSOCIATE SRVC PER S CERT PRD SPHERE V2200 SHILOHTRINITY RDZA BIFOCL 9 VISION VISION PLANO TO PLUS/ANILA S 4.00D PER LENS BIFOCL V2203 SHILOHTRINITY MATAM[place]OS PLANO +/- 9 VISION VISION 4.00D SPHER 0.12-2.00 D CYL-EA FRAMES V2020 SHILOH MATAMOROS PURCHASES 9 VISION VISION CATARACT 81893 [facility] REMOVAL 9 EYE , NEENA Lerner [facility] POSTERIOR V2632 GHASSAN FERRELL CHAMBER 9 [facility] INTRAOCUL INC INC AR LENS GLUC BLD 70213 GHASSAN FERRELL GLUC MNTR 9 [facility] HOSP [...] BLD INC INC GLU MON-50 OPH BMTRY 25003 [facility] 8 EYE , NEENA Lerner [facility] A-SCAN IO LENS PWR IDANIA CATARACT 41400 [facility] REMOVAL 8 EYE , NEENA [facility] OPHTH 04059 [facility] 8 JEFE A JEFE A XM&EVAL COMPRHNSV ESTAB PT 1/> ALBUTEROL J7620 YOUR YOUR TO 2.5 8 PHARMACY PHARMACY [employer] IPRATROPI UM BROM TO 0.5 MG ADMN SET A7003 YOUR YOUR SM VOL 8 PHARMACY PHARMACY NONFILTR [employer] PNEUMAT NEBULIZR DISPBL PHRM Q0513 YOUR YOUR DISPENSIN 8 PHARMACY PHARMACY G FEE [employer] INHALATIO N RX; PER 30 DAYS IIV3 41044 Jack CASTAÑEDA VACCINE 8 CARE G SPLIT [...] YOUR SM VOL 8 PHARMACY PHARMACY NONFILTR [employer] PNEUMAT NEBULIZR DISPBL ALBUTEROL J7620 YOUR YOUR TO 2.5 8 PHARMACY PHARMACY [employer] IPRATROPI UM BROM TO 0.5 MG PHRM Q0513 YOUR YOUR DISPENSIN 8 PHARMACY PHARMACY G FEE [employer] INHALATIO N RX; PER 30 [...] AND 8 DIABETIC DIABETIC HIGH SUPPLY SUPPLY [email or web address] R SOLUTION/ CHIPS COMPUTER- 65712 [place] K[place], AIDED 8 MEDICAL MAISHA P DETECTION IMAGING ASSOCIATE SCREENING S MAMMOGRAP HY SCREENING 12142 [place] [facility] MEDICAL MAISHA P MAMMOGRAP IMAGING HY ASSOCIATE BILATERAL S BLD GLU A4253 DOCTOR DOCTOR TEST/REAG 8 DIABETIC DIABETIC T STRIPS SUPPLY SUPPLY HOME [employer] INC INC GLU MON-50 LANCETS A4259 DOCTOR DOCTOR PER BOX 8 DIABETIC DIABETIC OF 100 SUPPLY SUPPLY INC INC NORMAL A4256 DOCTOR DOCTOR LOW AND 8 DIABETIC DIABETIC HIGH SUPPLY SUPPLY [email or web address] R SOLUTION/ CHIPS NEBULIZER E0570 GUERO JACK WITH 8 HOME MED HOME MED COMPRESSO EQUIP. EQU[employer]. R LLC LLC NEBULIZER E0570 GUERO JACK WITH 8 HOME MED HOME MED COMPRESSO EQUIP. [employer] ARTHROCEN [address]95 [place] TESIS 8 AND [...] DIABETIC DIABETIC T STRIPS SUPPLY SUPPLY [employer] GLU MON-50 NEBULIZER E0570 GUERO JACK WITH 8 HOME MED HOME MED COMPRESSO EQUIP. EQUIP. R [employer] ARTHROCEN 17614 [place] TES[place] 8 AND HAND AND HAND ASPIR&/IN SURGEONS SURGEONS J MAJOR PSC PSC JT/BURSA W/O US HYALURONA J7323 [place] N/DERIVAT 8 AND HAND AND HAND MAEVE SURGEONS SURGEONS EUFLEXXA PSC PSC IA INJ PER DOSE ARTHROCEN 86843 [place] TESIS 8 AND HAND AND HAND ASPIR&/IN SURGEONS SURGEONS J MAJOR PSC PSC JT/BURSA W/O US HYALURONA J7323 [place] N/DERIVAT 8 AND HAND AND HAND MAEVE SURGEONS SURGEONS EUFLEXXA PSC PSC IA INJ PER DOSE Encounters Encounter Start End Date Code Location Performer Type Date [facility] - 7 7 [facility] - 7 7 [facility] - 6 6 [facility] - 6 6 [facility] - 6 6 [facility] OFFICE 98440 [facility] JHONSON OUTPATIEN 6 6 PHYSICIAN KIMBERLY T NEW 20 S GROUP MINUTES OFFICE 78991 [facility] PETTEY OUTPATIEN 6 6 PHYSICIAN JAM T NEW 20 S GROUP MINUTES [facility] - 5 5 [facility] EMERGENCY 49028 GHASSAN Lerner 5 5 [facility] T VISIT P LOW/MODER SEVERITY [facility]OS[facility] - 4 4 [facility] OFFICE 75369 MULBERRY MULBERRY OUTPATIEN 3 3 OFELIA OFELIA T VISIT 15 MINUTES [facility]OSP[facility] - 3 3 [facility] - 2 2 [facility] - 2 2 [facility] - [address] [facility] OUTPATIEN [facility] - [address] [facility] OUTPATIEN [facility]OSP[facility] - [address] [facility] OUTPATIEN [facility] EMERGENCY 68606 ATUL STEWARD DEPT 2 2 EMERGENCY EDUARDO VISIT SERVICES HIGH SEVERITY& THREAT [facility] GHASSAN - [address] [facility] OUTPATIEN [facility] EMERGENCY 64986 GHASSAN 2 [address] [facility] VISIT HIGH/URGE NT SEVERITY [facility]OS[facility] - 1 1 [facility] - 1 1 [facility] EMERGENCY 15305 [facility] 1 1 [facility] VISIT LOW/MODER SEVERITY EMERGENCY 04397 ATUL STEWARD 1 1 [facility]ER[facility] DEPARTMEN SERVICES T VISIT HIGH/URGE NT SEVERITY OFFICE 30807 FAMILY MULBERRY OUTPATIEN 1 1 CARE OFELIA T VISIT ASSOCIATE 25 S MINUTES [facility] - 0 0 [facility] OFFICE 45557 FAMILY MULBERRY OUTPATIEN 0 0 CARE OFELIA T VISIT ASSOCIATE 15 S MINUTES OFFICE 94551 FAMILY MULBERRY OUTPATIEN 0 0 CARE OFELIA T VISIT ASSOCIATE 25 S MINUTES OFFICE 70441 FAMILY MULBERRY, OUTPATIEN 0 0 CARE JAIR T T VISIT ASSOCIATE 15 S MINUTES OFFICE 75193 FAMILY MULBERRY, OUTPATIEN 0 0 CARE JAIR T T VISIT ASSOCIATE 15 S MINUTES [facility] - 9 9 [facility] INC T OFFICE 06887 FAMILY MULBERRY, OUTPATIEN 9 9 CARE JAIR T T VISIT ASSOCIATE 40 S MINUTES OFFICE 09862 FAMILY MULBERRY, OUTPATIEN 9 9 CARE JAIR T T VISIT ASSOCIATE 15 S MINUTES OFFICE 40933 FAMILY MULBERRY, OUTPATIEN 9 9 CARE JAIR T T VISIT ASSOCIATE 15 S MINUTES OFFICE 54457 FAMILY MULBERRY, OUTPATIEN 9 9 CARE JAIR T T VISIT ASSOCIATE 25 S MINUTES [facility]OSP[facility] - 9 9 [facility] OUTPATIEN INC T OFFICE 15304 [facility] CONSULTAT 8 8 EYE , [facility] NEW/ESTAB PATIENT 60 MIN OFFICE 06195 FAMILY MULBERRY, OUTPATIEN 8 8 CARE JAIR T T VISIT ASSOCIATE 25 S MINUTES OFFICE [address] [place] 8 8 AND HAND AND HAND T VISIT SURGEONS SURGEONS 10 PSC PSC MINUTES
--- OUTSIDE RECORDS SUMMARY | 2017-01-23 09:41 | External Medical Summary Rpt ---
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 Name Role Phone [facility] Un[facility] BEINEKE ESAU, ZACHARIAH Unavailable Unavailable MARIANO GUTIERREZ Unavailable Unavailable BESSON, BESSON Unavailable Unavailable BESSON VIOLETA, BESSON Unavailable Unavailable VIOLETA [facility], Unavailable Unavailable [facility], Unavailable Unavailable [facility] NEENA RODRIGUEZ, Unavailable Unavailable NEENA RODRIGUEZ CANNON, CANNON Unavailable Unavailable ESTEVAN MCCAIN Unavailable Unavailable [facility] Unavailable Unavailable SERVICE, [facility] Unavailable Unavailable [place], [facility]available Unavailable [place], [facility] Unavailable Unavailable LAB, [facility] AN[facility] OF Unavailable Unavailable [facility] [place], [facility] ANESTH OF THE BLUE Jack [facility], [...] Unavailable Unavailable INC, [facility] Unavailable Unavailable HOSPITAL P, [facility] Unavailable Unavailable SOL[facility], [facility] ROSE KENDRICK, ROSE KENDRICK Unavailable Unavailable ROSE KENDRICK, ROSE KENDRICK Unavailable Unavailable ROSE, JEFE A, Unavailable Unavailable ROSE, JEFE A [facility], Unavailable Unavailable [facility], Unavailable Unavailable [facility], Unavailable Unavailable [facility] JASPER VITOR, JASPER Unavailable Unavailable VITOR [facility] Unavailable Unavailable [facility], [facility] Unavailable Unavailable [facility] Unavailable Unavailable [facility], [facility] JOHNSON KIMBERLY, JOHNSON Unavailable Unavailable KIMBERLY [facility] Unavailable Unavailable SERVICES, [facility] ANGELINAE JUANITA, Unavailable Unavailable MCKEMIE JR JUANITA MCKEMIE JR JUANITA, Unavailable Unavailable MCKEMIE JR JUANITA MAISHA PAL, Unavailable Unavailable MAISHA PAL [facility], Unavailable Unavailable [facility], Unavailable Unavailable [facility] MULBERRY, JAIR T, Unavailable Unavailable MULBERRY, JAIR T [facility] Un[facility] Unavailable PHARMACY PETTEY JAM, PETTEY Unavailable Unavailable JAM PETTEY JAM, PETTEY Unavailable Unavailable JAM [facility] Unavailable Unavailable [facility], [facility] Unavailable Unavailable [facility], [facility] Un[facility] Unavailable [facility] Unavailable Unavailable [facility], [facility] Unavailable Unavailable [facility] Unavailable Unavailable SUPPLY, [facility] Unavailable Unavailable #591, [facility] [address] [facility] # Unavailable Unavailable [id number], [facility] # [id number] [facility] Unavailable Unavailable [facility]AC[facility], [facility]available [facility]available [facility], Unavailable [facility]available [facility] Purpose Continuity of Care Document - 07-25-2007 through 2016 Problems Code Diagnosis DOS Provider Status J441 CHRONIC 09-18-2016 [facility] [place]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 ION J9601 ACUTE 09-18-2016 [facility] [place] RESPIRATORY HOME FAILURE MEDICAL WITH EQUIPME HYPOXIA J449 CHRONIC 09-10-2016 [facility] P[facility] DISEASE UNS R1033 PERIUMBILIC 08-23-2016 [facility] [id number] PAIN IN 08-07-2016 [place] [facility] R600 LOCALIZED 08-07-2016 [facility] E039 HYPOTHYROID 07-14-2016 [facility] UNSPECIFIED INC E119 TYPE 2 07-14-2016 [facility]ES [facility] MELLITUS INC WITHOUT COMPLICATIO NS E785 HYPERLIPIDE 07-14-2016 [facility] UNSPECIFIED INC I10 ESSENTIAL 07-14-2016 [facility] HYPERTENSIO INC N R05 COUGH 07-13-2016 [facility] R0602 SHORTNESS 07-13-2016 [place] [facility] R918 OTHER 07-13-2016 [place] NONSPECIFIC MEDICAL ABNORMAL IMAGING ASS FINDING OF LUNG FIELD 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 OTHER PARTS OF FACE D2239 MELANOCYTIC 02-03-2016 [facility] NEVI OF PHYSICIANS OTHER PARTS GROUP OF FACE L989 DISORDER 02-03-2016 COMMUNITY THE SKIN & ANESTH OF SUBCUTANEOU THE BLUE S TISSUE UNS [id number] ENCOUNTER 02-01-2016 [facility] P AL CARIOVASCUL AR EXAM C16999 ENCOUNTER 02-01-2016 [facility] P AL LABORATORY EXAM D492 NEOPLASM OF 01-20-2016 [facility] UNS PHYSICIANS BEHAVIOR GROUP BONE SOFT TISSUE & SKIN D4989 NEOPLASM OF 01-20-2016 [facility] PHYSICIANS UNSPECIFIED GROUP BEHAVIOR OTH SPEC SITES 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 BILATERAL 11-02-2015 [facility] PRIMARY PHYSICIANS 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 E77954 VARUS 11-02-2015 [facility] DEFORMITY PHYSICIANS NEC LEFT GROUP KNEE 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 7242 LUMBAGO 02-14-2015 [facility] 51376 SPASM OF 02-14-2015 [place] MUSCLE [facility]ICAL [facility] 40076 ABDOMINAL 02-14-2015 [place] PAIN, MEDICAL UNSPECIFIED IMAGING ASS SITE 81224 DIAB W/O 01-14-2015 [facility] COMP TYPE ADVISORS II/UNS NOT STATED UNCNTRL 03401 PAIN IN OR 11-09-2014 [place] AROUND EYE [facility]ICAL [facility] 4019 UNSPECIFIED 11-09-2014 [facility] ESSENTIAL [facility] P N 75030 OPEN WOUND 11-09-2014 [place] [facility] WITHOUT IMAGING ASS MENTION COMPLICATIO N 920 CONTUSION 11-09-2014 [facility] OF FACE [facility] P NECK EXCEPT EYE 9219 UNSPECIFIED 11-09-2014 [place] CONTUSION MEDICAL OF EYE IMAGING ASS E8498 OTHER 11-09-[address] [facility] [address] OF HOSPITAL P OCCURRENCE E8859 FALL FROM 11-09-2014 [facility] TRIPPING OR STUMBLING 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[facility] SYNDROME 496 CHRONIC 06-24-2014 [facility] OBSTRUCTION INC NEC 7862 COUGH 06-24-2014 [facility] INC 84601 ASTHMA, 02-16-2014 [facility] UNSPECIFIED HOME , MEDICAL UNSPECIFIED EQUIPME STATUS 51369 OBSTRUCTIVE 12-19-2012 [facility] BRONCHITIS LLC WITH EXACERBATIO N 7850 UNSPECIFIED 06-19-2012 ANN [facility] JUANITA TACHYCARDIA 4293 CARDIOMEGAL 05-10-2012 [place] Y [facility] 4659 ACUTE URIS 05-10-2012 [facility] UNSPECIFIED INC SITE 5119 UNSPECIFIED 05-10-2012 [place] PLEURAL MEDICAL EFFUSION IMAGING ASS 91137 OSTEOARTHRO 03-21-2012 PETTEY JAM SIS UNSPEC WHETHER GEN/LOC LOWER LEG 47878 PAIN IN 02-29-2012 PETTEY JAM JOINT, LOWER LEG 4871 INFLUENZA 10-04-2011 MUL[facility] WITH OTHER OFELIA RESPIRATORY MANIFESTATI ONS 32424 INFLUENZA 09-29-2011 ATUL D/T ID EMERGENCY STORM FLU SERVICES VIRUS OTH RESP MANIF 5199 UNSPECIFIED 09-29-2011 [place] DISEASE OF MEDICAL IMAGING ASS RESPIRATORY SYSTEM 57112 UNSPECIFIED 08-07-2011 ROSE MARKS TEAR FILM INSUFFICIEN CY V7612 OTHER 04-27-2011 [place] [facility] MAMMOGRAM INC 9221 CONTUSION 04-17-2011 [facility] EMERGENCY WALL SERVICES E8889 UNSPECIFIED 04-17-2011 [facility]ERGENC[facility] SERVICES 2449 UNSPECIFIED 04-16-2011 [facility] HYPOTHYROID LA ISM 5990 URINARY 04-16-2011 [facility]CT [facility] INFECTION LA SITE NOT SPECIFIED 85412 DIAB 10-18-2010 [facility] W/NEURO NEUROLOGY [facility] TYPE II/UNS NOT UNCNTRL 3572 POLYNEUROPA 10-18-2010 [facility] THY IN NEUROLOGY DIABETES CENTER [facility] 2724 OTHER AND 10-16-2010 [facility] HYPERLIPIDE TALISHA 7292 UNSPECIFIED 10-16-2010 [facility] NEURALGIA [facility] NEURITIS AND RADICULITIS 43691 AFTER-CATAR 06-12-2010 ROSE MARKS ACT, OBSCURING VISION V0481 NEED 04-25-2010 [facility] PROPHYLACTI [facility] C VACCINATION &INOCULATIO N FLU 73209 CHRONIC 02-10-2010 [facility] OBSTRUCTIVE [facility] ASTHMA WITH EXACERBATIO N 01513 PRIMARY 02-10-2010 [facility] LOCALIZED ASS[facility]IATES OSTEOARTHRO SIS LOWER LEG 7823 EDEMA 02-10-2010 [facility] 94111 GENERALIZED 09-20-2009 [facility] OSTEOARTHRO SIS UNSPECIFIED SITE 7245 UNSPECIFIED 03-04-2009 [facility] BACKACHE [facility] 1179 OTHER AND 02-03-2009 [facility] UNSPECIFIED ASSOCIATES MYCOSES 05985 CHRONIC 02-03-2009 [facility] OBSTRUCTIVE [facility]ATES ASTHMA UNSPECIFIED 75140 OSTEOARTHRO 02-03-2009 [facility] S INVLV MX ASSOCIATES SITES BUT NOT SPEC GEN 78304 ASTHMA 12-09-2008 [facility] UNSPECIFIED ASSOCIATES WITH EXACERBATIO N 56379 CHRONIC 11-26-2008 [facility] OBSTRUCTIVE [facility] ASTHMA W/STATUS ASTHMATICUS 23367 UNSPECIFIED 11-26-2008 [facility] URINARY [facility] INCONTINENC E 11290 SHORTNESS 09-30-2008 [facility] OF BREATH ASSOCIATES V431 LENS 08-24-2008 SHILOH REPLACED BY VISION OTHER MEANS 75451 NUCLEAR 08-17-2008 [place] [facility] 3669 UNSPECIFIED 08-17-2008 ROSE, CATARACT JEFE A 11157 DIAB 06-15-2008 [place] W/OPHTH EYE MANIFESTS INSTITUTE TYPE II/UNS NOT UNCNTRL 3688 OTHER 06-15-2008 [place] SPECIFIED EYE VISUAL INSTITUTE DISTURBANCE S 85810 DERMATOCHAL 06-15-2008 [place] [facility] 61332 PAIN IN 04-01-2008 [facility] JOINT, ASSOCIATES SHOULDER REGION Medications Na ND Rx Da Fi Fi [...] L- 84 LB ti IG 00 9 MA 02 ER ve ON 03 10 [...] .0 L- 76 LB ti IG 00 1- 4 MA 82 ER ve ON 08 20 20 RT 6 RY 10 09 09 [...] Performer Comment O2 CONC 1 E1390 [facility] JACK DEL PORT 7 HOME HOME 85%/>02 MEDICAL MEDICAL CONC AT EQUIPME EQUIPME PRSC FLW RATE PRTBLE E0431 GUEROMAYO JACK GASEOUS 7 HOME HOME O2 SYS MEDICAL MEDICAL RENT; EQUIPME EQUIPME FLWMTR HUMIDFR&M ASK AREO MASK A7015 YOUR YOUR USED W/ 7 PHARMACY PHARMACY DME NEB m2p-labs ADMN SET A7005 YOUR YOUR W/SM VOL 7 PHARMACY PHARMACY NONFILTR m2p-labs NEBULIZR NON-DISPB L ALBUTEROL J7613 YOUR YOUR INHAL 7 PHARMACY PHARMACY NON-CP m2p-labs PROD THRU DME [place] [address] [place] [address] [facility] ROGERSON ABDOMEN & 7 MEM HOSP MEM HOSP PELVIS INC INC W/O CONTRAST MATERIAL O2 CONC 1 E1390 GUEROMAYO MOMIN PORT 7 HOME HOME 85%/>02 MEDICAL MEDICAL CONC AT EQUIPME EQUIPME PRSC FLW RATE PRTBLE E0431 [facility] SANCHEZRELL GASEOUS 7 HOME HOME O2 SYS MEDICAL MEDICAL RENT; EQUIPME EQUIPME FLWMTR HUMIDFR&M ASK DUP-SCAN 31915 [place] CANNON XTR VEINS 7 MEDICAL IMAGING UNILATERA ASS L/LIMITED STUDY O2 CONC 1 E1390 [facility] JACK DEL PORT 6 HOME HOME 85%/>02 MEDICAL MEDICAL CONC AT EQUIPME EQUIPME PRSC FLW RATE PRTBLE E0431 GEURO SANCHEZRELL GASEOUS 6 HOME HOME O2 SYS MEDICAL MEDICAL RENT; EQUIPME EQUIPME FLWMTR HUMIDFR&M ASK AMB A0427 [facility] SERVICE 6 AMBULANCE AMBULANCE ALS SERVICE SERVICE EMERGENCY TRANSPORT LEVEL 1 RADIOLOGI 55686 [place] AMIRA C 6 MEDICAL EXAMINATI IMAGING ON CHEST ASS SINGLE VIEW FRONTAL ECG 11272 [facility] LANG ROUTINE 6 [facility] W/LEAST P 12 LDS I&R ONLY GROUND A0425 [facility] MILEAGE 6 AMBULANCE AMBULANCE PER SERVICE SERVICE STATUTE MILE ADJT TIS 98424 [facility] FERRELL TRNS/REAR 6 MEM HOSP [facility] GMT INC INC F/C/C/M/N /A/G/H/F 10SQCM/< GLUC BLD 03437 [facility] FER[facility] GLUC MNTR 6 [facility] DEV INC INC [place] [address] [facility] SURG 6 [facility] PATHOLOGY INC INC GROSS&EDUARDO ROSCOPIC EXAM ANES 86914 COMMUNITY BARRETO ESAU INTEG 6 ANESTH MUSC & OF THE NRV HEAD BLUE NECK&POST ERIOR TRUNK ECG 83627 [facility] FERRELL ROUTINE 6 [facility] ECG INC INC W/LEAST 12 LDS TRCG ONLY W/O I&R COLLECTIO 83176 [facility] F[facility]RE[facility] N VENOUS 6 [facility] BLOOD INC INC VENIPUNCT URE ECG 43103 [facility] LANG ROUTINE 6 [facility] W/LEAST P 12 LDS I&R ONLY COMPREHEN 77519 [facility] SIVE 6 [facility] METABOLIC INC INC PANEL ARTHROCEN 79278 [facility] TATO TESIS 6 PHYSICIAN JENNIFER ASPIR&/IN S GROUP J MAJOR JT/BURSA W/O US HYALURONA J7325 [facility] TATO N/DERIV 6 PHYSICIAN JENNIFER SYNVISC/S S GROUP YNVISC-ON E IA INJ 1 MG FOR DIAB A5512 PAT'S PAT'S ONLY MX 6 PHARMACY PHARMACY DNSITY INSRT DIR FORMD PRFAB EA DIAB ONLY A5500 PAT'S PAT'S FIT CSTM 6 PHARMACY PHARMACY PREP&SPL SHOE MX DNSITY INSRT BLD GLU A4253 HOME HOME TEST/REAG 5 HEALTH HEALTH T STRIPS ADVISORS ADVISORS HOME BLD GLU SAT-50 LANCETS A4259 HOME HOME PER BOX 5 [facility] HEALTH OF 100 ADVISORS ADVISORS NORMAL A4256 HOME HOME LOW AND 5 HEALTH HEALTH HIGH ADVISORS ADVISORS CALIBRATO R SOLUTION/ [facility]IPS RADEX 46793 [place] [facility] SPINE 5 MEDICAL ESAU LUMBOSACR IMAGING AL ASS MINIMUM 4 VIEWS RADEX 30600 [place] [facility] ABD[facility] 1 5 MEDICAL ESAU IMAGING ANTEROPOS ASS TERIOR VIEW [facility] A4258 HOME HOME WERED 5 HEALTH HEALTH DEVICE ADVISORS ADVISORS FOR LANCET EACH NORMAL A4256 HOME HOME LOW AND 5 HEALTH HEALTH HIGH ADVISORS ADVISORS CALIBRATO R SOLUTION/ CHIPS LANCETS A4259 HOME HOME PER BOX 5 HEALTH HEALTH OF 100 ADVISORS ADVISORS BLD GLU A4253 HOME HOME TEST/REAG 5 HEALTH HEALTH T STRIPS ADVISORS ADVISORS HOME BLD GLU MON-50 REPL MAURICIO A4233 HOME HOME ALKALINE 5 HEALTH HEALTH NOT J ADVISORS ADVISORS CELL YANELI BG MON OWND PT BLD GLU A4253 HOME HOME TEST/REAG 5 HEALTH HEALTH T STRIPS ADVISORS ADVISORS HOME BLD GLU SAT-50 LANCETS A4259 HOME HOME PER BOX 5 HEALTH HEALTH OF 100 ADVISORS ADVISORS NORMAL A4256 HOME HOME LOW AND 5 HEALTH HEALTH HIGH ADVISORS ADVISORS CALIBRATO R SOLUTION/ [place]IPS RADEX 50987 [place] AMIRA ORBITS 5 MEDICAL ELIA COMPLETE IMAGING MINIMUM 4 ASS VIEWS WRIST L3908 [facility] HAND 5 MEDICAL MEDICAL ORTHOSIS [place] EXT CONTROL COCK-UP PREFAB RADIOLOGI 49211 [facility] FERRELL C EXAM 4 MEM HOSP MEM HOSP CHEST 2 INC INC VIEWS FRONTAL&L ATERAL NORMAL A4256 [facility] LOW AND 4 MEDICAL MEDICAL HIGH [facility] CALIBRATO R SOLUTION/ CHIPS LANCETS A4259 [facility] PER BOX 4 MEDICAL MEDICAL OF [address] [place] [address] [place] BLD GLU A4253 [facility] TEST/REAG 4 MEDICAL MEDICAL T STRIPS [place] HOME BLD GLU MON-50 BLD GLU A4253 [facility] TEST/REAG 4 MEDICAL MEDICAL T STRIPS [place] HOME BLD GLU MON-50 LANCETS A4259 [facility] PER BOX 4 MEDICAL MEDICAL OF 100 [place] NORMAL A4256 [facility] LOW AND 4 MEDICAL MEDICAL HIGH [place] CALIBRATO R SOLUTION/ CHIPS DIAB ONLY A5500 PAT'S PAT'S FIT CSTM 4 PHARMACY PHARMACY PREP&SPL SHOE MX DNSITY INSRT FOR DIAB A5512 PAT'S PAT'S ONLY MX 4 PHARMACY PHARMACY DNSITY INSRT DIR FORMD PRFAB EA O2 CONC 1 E1390 GUERO SANCHEZRELL DEL PORT 4 HOME HOME 85%/>02 MEDICAL MEDICAL CONC AT EQUIPME EQUIPME [facility] FLW RATE NORMAL A4256 HOME HOME LOW AND 4 HEALTH HEALTH HIGH ADVISORS ADVISORS CALIBRATO R SOLUTION/ CHIPS LANCETS A4259 HOME HOME PER BOX 4 HEALTH HEALTH OF 100 ADVISORS ADVISORS BLD GLU A4253 HOME HOME TEST/REAG 4 HEALTH HEALTH T STRIPS ADVISORS ADVISORS HOME BLD GLU MON-50 REPL MAURICIO A4233 HOME HOME ALKALINE 4 HEALTH HEALTH NOT J ADVISORS ADVISORS CELL YANELI BG MON OWND PT O2 CONC 1 E1390 GUERO JACK DEL PORT 4 HOME HOME 85%/>02 MEDICAL MEDICAL CONC AT E[facility] FL[facility] O2 CONC 1 E1390 GUERO SANCHEZRELL DEL PORT 4 HOME HOME 85%/>02 MEDICAL MEDICAL CONC AT EQUIPME EQUIPME [facility] FLW RATE SPRING-PO A4258 [facility] WERED 4 MEDICAL TEST DECK SUPERVISOR [place] FOR LANCET EACH BLD GLU A4253 [facility] TEST/REAG 4 MEDICAL MEDICAL T STRIPS [place] HOME BLD GLU MON-50 NORMAL A4256 [facility] LOW AND 4 MEDICAL MEDICAL HIGH [place] CALIBRATO R SOLUTION/ CHIPS LANCETS A4259 [facility] PER BOX 4 MEDICAL MEDICAL OF 100 [place] O2 CONC 1 E1390 GUERO GUERO DEL PORT 4 HOME HOME 85%/>02 MEDICAL MEDICAL CONC AT EQUIPME EQUIPME PRSC FLW RATE O2 CONC 1 E1390 GUERO JACK DEL PORT 4 HOME HOME 85%/>02 MEDICAL MEDICAL CONC AT EQUIPME EQUIPME PRS FLW RATE BLD GLU A4253 HOME HOME TEST/REAG 4 HEALTH HEALTH T STRIPS ADVISORS ADVISORS HOME BLD GLU MON-50 NORMAL A4256 HOME HOME LOW AND 4 HEALTH HEALTH HIGH ADVISORS ADVISORS CALIBRATO R SOLUTION/ CHIPS LANCETS A4259 HOME HOME PER BOX 4 HEALTH HEALTH OF 100 ADVISORS ADVISORS O2 CONC 1 E1390 GUERO MOMIN PORT 4 HOME HOME 85%/>02 MEDICAL MEDICAL CONC AT EQUIPME EQUIPME PRS FLW RATE LANCETS A4259 [facility] PER BOX 4 MEDICAL MEDICAL OF 100 [place] BLD GLU A4253 [facility] TEST/REAG 4 MEDICAL MEDICAL T STRIPS [facility] HOME BLD GLU MON-50 HOME E0607 [facility] BLOOD 4 MEDICAL MEDICAL GLUCOSE [facility] MONITOR O2 CONC 1 E1390 GUERO JACK DEL PORT 4 HOME HOME 85%/>02 MEDICAL MEDICAL CONC AT EQUIPME EQUIPME [facility] FLW RATE O2 CONC 1 E1390 [facility] MOMIN PORT 3 HOME HOME 85%/>02 MEDICAL MEDICAL CONC AT EQUIPME EQUIPME [facility] FLW RATE REPL MAURICIO A4233 HOME HOME ALKALINE 3 HEALTH HEALTH NOT J ADVISORS ADVISORS CELL YANELI BG MON OWND PT BLD GLU A4253 HOME HOME TEST/REAG 3 HEALTH HEALTH T STRIPS ADVISORS ADVISORS HOME BLD GLU MON-50 LANCETS A4259 HOME HOME PER BOX 3 HEALTH HEALTH OF 100 ADVISORS ADVISORS NORMAL A4256 HOME HOME LOW AND 3 HEALTH HEALTH HIGH ADVISORS ADVISORS CALIBRATO R SOLUTION/ CHIPS O2 CONC 1 E1390 GUERO JACK DEL PORT 3 HOME HOME 85%/>02 MEDICAL MEDICAL CONC AT EQUIPME EQUIPME PRSC FLW RATE SPRING-PO A4258 [place] WERED 3 [facility] STATES DEVICE MEDICAL MEDICAL FOR SUPPLY SUPPLY LANCET EACH NORMAL A4256 UNITED CEBOLLA LOW AND 3 [facility] STATES HIGH MEDICAL MEDICAL CALIBRATO SUPPLY SUPPLY R SOLUTION/ CHIPS LANCETS A4259 UNITED [place] PER BOX 3 STATES STATES OF 100 MEDICAL MEDICAL SUPPLY SUPPLY BLD GLU A4253 UNITED CEBOLLA TEST/REAG 3 STATES STATES T STRIPS MEDICAL MEDICAL HOME BLD SUPPLY SUPPLY GLU MON-50 O2 CONC 1 E1390 GUERO JACK DEL PORT 3 HOME HOME 85%/>02 MEDICAL MEDICAL CONC AT EQUIPME EQUIPME PRSC FLW RATE O2 CONC 1 E1390 GUERO GUERO DEL PORT 3 HOME HOME 85%/>02 MEDICAL MEDICAL CONC AT EQUIPME EQUIPME PRSC FLW RATE BLD GLU A4253 HOME HOME TEST/REAG 3 HEALTH HEALTH T STRIPS ADVISORS ADVISORS HOME BLD GLU MON-50 LANCETS A4259 HOME HOME PER BOX 3 [facility] OF 100 ADVISORS ADVISORS NORMAL A4256 HOME HOME LOW AND 3 HEALTH HEALTH HIGH ADVISORS ADVISORS CALIBRATO R SOLUTION/ CHIPS O2 CONC 1 E1390 GUERO SANCHEZRELL DEL PORT 3 HOME HOME 85%/>02 MEDICAL MEDICAL CONC AT EQUIPME EQUIPME PRSC FLW RATE O2 CONC 1 E1390 GUEROMAYO SANCHEZRELL DEL PORT 3 HOME HOME 85%/>02 MEDICAL MEDICAL CONC AT EQUIPME EQUIPME PRSC FLW RATE O2 CONC 1 E1390 GUEROMAYO SANCHEZRELL DEL PORT 3 HOME HOME 85%/>02 MEDICAL MEDICAL CONC AT EQUIPME EQUIPME PRSC FLW RATE REPL MAURICIO A4233 [facility] ALKALINE 3 HEALTHCAR HEALTHCAR NOT J E E CELL YANELI SOLUTIONS SOLUTIONS BG MON OWND PT NORMAL A4256 [facility] PLA[facility] LOW AND 3 HEALTHCAR HEALTHCAR HIGH E E CALIBRATO SOLUTIONS SOLUTIONS R SOLUTION/ CHIPS BLD GLU A4253 [facility] TEST/REAG 3 HEALTHCAR HEALTHCAR T STRIPS E E HOME BLD SOLUTIONS SOLUTIONS GLU MON-50 SPRING-PO A4258 [facility] WERED 3 HEALTHCAR HEALTHCAR DEVICE E E FOR SOLUTIONS SOLUTIONS LANCET EACH LANCETS A4259 [facility] PLAZA PER BOX 3 HEALTHCAR HEALTHCAR OF 100 E E SOLUTIONS SOLUTIONS ALBUTEROL J7620 YOUR YOUR TO 2.5 3 PHARMACY PHARMACY [facility] [employer] [facility] IPRATROPI [...] CONC AT EQUIPME EQUIPME PRSC FLW RATE BLD GLU A4253 [facility] TEST/REAG 3 HEALTHCAR HEALTHCAR T STRIPS E E HOME BLD SOLUTIONS SOLUTIONS GLU MON-50 NORMAL A4256 [facility] LOW AND 3 HEALTHCAR HEALTHCAR HIGH E E CALIBRATO SOLUTIONS SOLUTIONS R SOLUTION/ CHIPS LANCETS A4259 [facility] PLAZA PER BOX 3 HEALTHCAR HEALTHCAR OF 100 E E SOLUTIONS SOLUTIONS PRTBLE E0431 GU[facility] JACK GASEOUS 3 HOME HOME O2 SYS MEDICAL MEDICAL RENT; EQUIPME EQUIPME FLWMTR HUMIDFR&M ASK O2 CONC 1 E1390 GUERO MOMIN PORT 3 HOME HOME 85%/>02 MEDICAL MEDICAL CONC AT EQUIPME EQUIPME PRSC FLW RATE PULM G0424 [facility] FERRELL REHAB 3 [facility] INCL EXER INC INC 1 HR PER SESS TO 2 PER DAY O2 CONC 1 E1390 GUERO MOMIN PORT 3 HOME HOME 85%/>02 MEDICAL MEDICAL CONC AT EQUIPME EQUIPME PRSC FLW RATE PRTBLE E0431 GUERO JACK GASEOUS 3 HOME HOME O2 SYS MEDICAL MEDICAL RENT; EQUIPME EQUIPME FLWMTR HUMIDFR&M ASK PULM G0424 [facility]AN REHAB 3 MEM HOS[facility]OS[facility] INCL EXER INC INC 1 HR PER SESS TO 2 PER DAY DETERMINA 99914 ROSE MARKS TION 3 REFRACTIV E STATE OPHTH 94684 [facility] 3 XM&EVAL COMPRHNSV ESTAB PT 1/> PULM G0424 [facility] BREE REHAB 3 MEM HOSP VITOR INCL EXER INC 1 HR PER SESS TO 2 PER DAY PULM G0424 [facility] MARTINEZNI REHAB 3 MEM HOSP VITOR INCL EXER INC 1 HR PER SESS TO 2 PER DAY PULM G0424 [facility]ASSAN REHAB 3 MEM HOS[facility] MEM [facility]OS[facility] INCL EXER INC INC 1 HR PER SESS TO 2 PER DAY PULM G0424 [facility] FERRELL REHAB 3 MEM [facility] INCL EXER INC INC 1 HR PER SESS TO 2 PER DAY PULM G0424 GH[facility] GHASSAN REHAB 3 [facility] INCL EXER INC INC 1 HR PER SESS TO 2 PER DAY PULM G0424 [facility]ASSAN RE[facility] EX[facility] INC 1 HR PER SESS TO 2 PER DAY O2 CONC 1 E1390 [facility] MOMIN PORT 2 HOME HOME 85%/>02 MEDICAL MEDICAL CONC AT EQUIPME EQUIPME PRSC FLW RATE PRTBLE E0431 [facility] JACK GASEOUS 2 HOME HOME O2 SYS MEDICAL MEDICAL RENT; EQUIPME EQUIPME FLWMTR HUMIDFR&M ASK LANCETS A4259 [facility] PER BOX 2 [facility] HE[facility] OF 100 E E SOLUTIONS SOLUTIONS ALBUTEROL J7620 YOUR YOUR TO 2.5 2 PHARMACY PHARMACY MG & IPRATROPI UM BROM TO 0.5 MG [place]-PO A4258 PLA[facility] PLAZA WERED 2 [facility]ALTH[facility] HEALTHCAR DEVICE E E FOR SOLUTIONS SOLUTIONS LANCET EACH NORMAL A4256 [facility] LOW AND 2 [facility] HEALTHCAR HIGH E E CALIBRATO SOLUTIONS SOLUTIONS R SOLUTION/ CHIPS BLD GLU A4253 [facility] PLAZA TEST/REAG 2 [facility]ALTH[facility] HEALTHCAR T STRIPS E E HOME BLD SOLUTIONS SOLUTIONS GLU MON-50 REPL MAURICIO A4233 [facility]ZA ALKALINE 2 [facility] HEALTHCAR NOT J E E CELL YANELI SOLUTIONS SOLUTIONS BG MON OWND PT PULM G0424 [facility] INCL EXER INC INC 1 HR PER SESS TO 2 PER DAY EXTERNAL [id number] [facility] 2 [facility] SCANNING INC INC ANALYSIS REPORT XTRNL ECG 65729 [facility] & 48 HR 2 [facility] RECORDING INC INC O2 CONC 1 E1390 [facility] SANCHEZRELL DEL PORT 2 HOME HOME 85%/>02 MEDICAL MEDICAL CONC AT EQUIPME EQUIPME PRS FLW RATE XTRNL ECG 68736 ANN RODMIE 2 JR JUANITA JR JUANITA CONTINUOU S RHYTHM W/I&R UP TO 48 HRS PRTBLE E0431 [facility] JACK GASEOUS 2 HOME [...] PER SESS TO 2 PER DAY SPMTRY 79075 BESSON BESSON W/VC 2 VIOLETA VIOLETA EXPIRATOR Y JERMAIN W/WO MXML VOL VNTJ ADMN SET A7003 YOUR YOUR SM VOL 2 PHARMACY PHARMACY NONFILTR PNEUMAT NEBULIZR DISPBL ALBUTEROL J7620 YOUR YOUR TO 2.5 2 PHARMACY PHARMACY MG & IPRATROPI UM BROM TO 0.5 MG PRTBLE E0431 [facility] JACK GASEOUS 2 HOME HOME O2 SYS MEDICAL MEDICAL RENT; EQUIPME EQUIPME FLWMTR HUMIDFR&M ASK O2 CONC 1 E1390 [facility] SANCHEZRELL DEL PORT 2 HOME HOME 85%/>02 MEDICAL MEDICAL CONC AT EQUIPME EQUIPME [facility] FLW RATE RADIOLOGI 09560 AMIRA AMIRA C EXAM 2 ELIA ELIA CHEST 2 VIEWS FRONTAL&L ATERAL RADIOLOGI 08112 [place] [facility] C EXAM 2 MEDICAL ELIA CHEST 2 IMAGING VIEWS ASS FRONTAL&L ATERAL PRESSURIZ 34910 GHASSAN FERRELL ED/NONPRE 2 [facility] SSURIZED INC INC INHALATIO N TREATMENT BLD GLU A4253 PLAZA PLAZA TEST/REAG 2 [facility]ALTH[facility] HEALTHCAR T STRIPS E E HOME BLD SOLUTIONS SOLUTIONS GLU MON-50 NORMAL A4256 PLAZA PLAZA LOW AND 2 HEALTHCAR HEALTHCAR HIGH E E CALIBRATO SOLUTIONS SOLUTIONS R SOLUTION/ CHIPS LANCETS A4259 PLAZA PLAZA PER BOX 2 HEALTHCAR HEALTHCAR OF 100 E E SOLUTIONS SOLUTIONS HYALURONA J7325 PETTEY PETTEY N/DERIV 2 JAM JAM SYNVISC/S YNVISC-ON E IA INJ 1 MG HYALURONA J7325 PETTEY PETTEY N/DERIV 2 JAM JAM SYNVISC/S YNVISC-ON E IA INJ 1 MG HYALURONA J7325 PETTEY PETTEY N/DERIV 2 JAM JAM SYNVISC/S YNVISC-ON E IA INJ 1 MG HYALURONA J7325 PETTEY PETTEY N/DERIV 2 JAM JAM SYNVISC/S YNVISC-ON E IA INJ 1 MG RADIOLOGI 36110 GHASSAN FERRELL C EXAM 2 [facility] KNEE INC INC COMPLETE 4/MORE VIEWS [facility] A4258 PLAZA PLAZA WERED 2 HEALTHCAR HEALTHCAR DEVICE E E FOR SOLUTIONS SOLUTIONS LANCET EACH NORMAL A4256 PLAZA PLAZA LOW AND 2 HEALTHCAR HEALTHCAR HIGH E E CALIBRATO SOLUTIONS SOLUTIONS R SOLUTION/ CHIPS BLD GLU A4253 PLAZA PLAZA TEST/REAG 2 HEALTHCAR HEALTHCAR T STRIPS E E HOME BLD SOLUTIONS SOLUTIONS GLU MON-50 REPL MAURICIO A4233 PLAZA PLAZA ALKALINE 2 HEALTHCAR HEALTHCAR NOT J E E CELL YANELI SOLUTIONS SOLUTIONS BG MON OWND PT LANCETS A4259 PLAZA PLAZA PER BOX 2 HEALTHCAR HEALTHCAR OF 100 E E SOLUTIONS SOLUTIONS LANCETS A4259 PLAZA PLAZA PER BOX 2 HEALTHCAR HEALTHCAR OF 100 E E SOLUTIONS SOLUTIONS BLD GLU A4253 PLAZA PLAZA TEST/REAG 2 HEALTHCAR HEALTHCAR T STRIPS E E HOME BLD SOLUTIONS SOLUTIONS GLU MON-50 BLD GLU A4253 PLAZA PLAZA TEST/REAG 2 HEALTHCAR HEALTHCAR T STRIPS E E HOME BLD SOLUTIONS SOLUTIONS GLU MON-50 NORMAL A4256 PLAZA PLAZA LOW AND 2 HEALTHCAR HEALTHCAR HIGH E E CALIBRATO SOLUTIONS SOLUTIONS R SOLUTION/ CHIPS LANCETS A4259 PLAZA PLAZA PER BOX 2 HEALTHCAR HEALTHCAR OF 100 E E SOLUTIONS SOLUTIONS NATRIURET 39210 GHASSAN FERRELL IC 2 [facility] [place] [address] GHASSAN FERRELL TROPONIN 2 [facility] QUANTITAT INC INC MAEVE BLOOD 26139 GHASSAN FERRELL COUNT 2 [facility] COMPLETE INC INC AUTO&AUTO DIFRNTL WBC BASIC 28586 GHASSAN FERRELL METABOLIC 2 [facility] PANEL INC INC CALCIUM TOTAL CREATINE 91105 GHASSAN FERRELL KINASE MB 2 [facility] FRACTION INC INC ONLY CULTURE 75262 GHASSAN FERRELL BACTERIAL 2 [facility] BLOOD INC INC AEROBIC W/ID ISOLATES SMR PRIM 29995 GHASSAN FERRELL SRC 2 [facility] GRAM/GIEM INC INC [place] ST[place] B[place] [address] GHASSAN FERRELL INFUSION 2 [facility] THERAPY/P INC INC ROPHYLAXI S /DX 1ST TO 1 HR PRESSURIZ 49529 GHASSAN FERRELL ED/NONPRE 2 [facility] SSURIZED INC INC INHALATIO N TREATMENT ECG 34653 ATUL STEWARD ROUTINE 2 EMERGENCY EDUARDO ECG SERVICES W/LEAST 12 LDS I&R ONLY RADIOLOGI 16759 GHASSAN FERRELL C 2 [facility] EXAMINATI INC INC ON CHEST SING[place] FRONTAL ECG 75764 GHASSAN FERRELL ROUTINE 2 [facility] ECG INC INC W/LEAST 12 LDS TRCG ONLY W/O I&R CREATINE 24832 GHASSAN FERRELL KINASE 2 [facility] TOTAL INC INC IAADI 74235 GHASSAN GHASSAN INFLUENZA 2 [facility] B VIRUS INC INC IAADI 36732 GHASSAN ROGERSON INFFLUENZ 2 [facility] A A VIRUS INC INC INJECTION J0456 GHASSAN FERRELL 2 [facility] AZITHROMY INC INC RADHAMES 500 MG DETERMINA 27617 ROSE MARKS TION 2 REFRACTIV E [facility] A4258 PLAZA PLAZA WERED 1 HEALTHCAR HEALTHCAR DEVICE E E FOR SOLUTIONS SOLUTIONS LANCET EACH REPL MAURICIO A4233 PLAZA PLAZA ALKALINE 1 HEALTHCAR HEALTHCAR NOT J E E CELL YANELI SOLUTIONS SOLUTIONS BG MON OWND PT BLD GLU A4253 PLAZA PLAZA TEST/REAG 1 HEALTHCAR HEALTHCAR T STRIPS E E HOME BLD SOLUTIONS SOLUTIONS GLU MON-50 NORMAL A4256 PLAZA PLAZA LOW AND 1 HEALTHCAR HEALTHCAR HIGH E E CALIBRATO SOLUTIONS SOLUTIONS R SOLUTION/ CHIPS LANCETS A4259 PLAZA PLAZA PER BOX 1 HEALTHCAR HEALTHCAR OF 100 E E SOLUTIONS SOLUTIONS SCREENING G0202 GHASSAN FERRELL 1 [facility] MAMMOGRAP INC INC HY PASCALE INCL CAD WHEN PERFORMD - 08267 GHASSAN FERRELL AIDED 1 [facility] DETECTION INC INC SCREENING MAMMOGRAP HY RADEX 79895 [place] [facility] STERNUM 1 MEDICAL ELIA MINIMUM 2 IMAGING VIEWS ASS RADIOLOGI 92602 [place] [facility] C EXAM 1 MEDICAL ELIA CHEST 2 IMAGING VIEWS ASS FRONTAL&L ATERAL BASIC 06649 COMBINED COMBINED METABOLIC 1 PHYSICIAN PHYSICIAN [place] [address] COMBINED COMBINED THYROID 1 PHYSICIAN PHYSICIAN STIMULATI S LA S LA NG HORMONE TSH WALKER E0143 GUERO GUERO FOLDING 1 HOME HOME WHEELED MEDICAL MEDICAL ADJUSTABL EQUIPME EQUIPME E/FIXED HEIGHT REPL MAURICIO A4233 PLAZA PLAZA ALKALINE 1 HEALTHCAR HEALTHCAR NOT J E E CELL YANELI SOLUTIONS SOLUTIONS BG MON OWND PT BLD GLU A4253 PLAZA PLAZA TEST/REAG 1 HEALTHCAR HEALTHCAR T STRIPS E E HOME BLD SOLUTIONS SOLUTIONS GLU MON-50 NORMAL A4256 PLAZA PLAZA LOW AND 1 HEALTHCAR HEALTHCAR HIGH E E CALIBRATO SOLUTIONS SOLUTIONS R SOLUTION/ CHIPS SPRING-PO A4258 PLAZA PLAZA WERED 1 HEALTHCAR HEALTHCAR DEVICE E E FOR SOLUTIONS SOLUTIONS LANCET EACH LANCETS A4259 PLAZA PLAZA PER BOX 1 HEALTHCAR HEALTHCAR OF 100 E E SOLUTIONS SOLUTIONS H-REFLEX 79699 HINDUISM GUNNAR AMPLT&LAT 1 [facility] GASTRCN/S LUCIAN OLEUS MUSC GLUCOSE 37578 FAMILY MULBERRY POST 1 CARE OFELIA GLUCOSE ASSOCIATE DOSE S HEMOGLOBI 35035 FAMILY FAMILY N 1 CARE CARE GLYCOSYLA ASSOCIATE ASSOCIATE STELLA A1C S S NORMAL A4256 PLAZA PLAZA LOW AND [...] SOLUTIONS LANCETS A4259 PLAZA PLAZA PER BOX 0 HEALTHCAR HEALTHCAR OF 100 E E SOLUTIONS SOLUTIONS BLD GLU A4253 PLAZA PLAZA TEST/REAG 0 HEALTHCAR HEALTHCAR T STRIPS E E HOME BLD SOLUTIONS SOLUTIONS GLU MON-50 NORMAL A4256 PLAZA PLAZA LOW AND 0 HEALTHCAR HEALTHCAR HIGH E E CALIBRATO SOLUTIONS SOLUTIONS R SOLUTION/ CHIPS OPHTH 41994 [facility] MEDICAL 0 XM&EVAL COMPRHNSV ESTAB PT 1/> SPRING-PO A4258 FINN BRISENO WERED 0 HEALTHCAR HEALTHCAR DEVICE E E FOR SOLUTIONS SOLUTIONS LANCET EACH RADEX 66845 [place] [facility] SPINE 0 MEDICAL ELIA LUMBOSACR IMAGING AL ASS MINIMUM 4 VIEWS URNLS DIP 29055 FAMILY MULBERRY 0 CARE OFELIA STICK/TAB ASSOCIATE LET RGNT S NON-AUTO W/O MICRSCP IIV 45403 FAMILY MULBERRY VACCINE 0 CARE OFELIA PRESERV ASSOCIATE FREE S INCREASED AG CONTENT IM ADMINISTR G0008 FAMILY MULBERRY ATION OF 0 CARE OFELIA INFLUENZA ASSOCIATE VIRUS S VACCINE CULTURE 37249 COMBINED COMBINED BACTERIAL 0 PHYSICIAN PHYSICIAN S LA S LA QUANTTATI VE COLONY COUNT URINE GLUCOSE 07262 FAMILY MULBERRY POST 0 CARE OFELIA GLUCOSE ASSOCIATE DOSE S ALBUMIN 51364 FAMILY MULBERRY URINE 0 CARE OFELIA MICROALBU ASSOCIATE MIN S SEMIQUANT ITATIVE COLLECTIO 31454 FAMILY MULBERRY N VENOUS 0 CARE OFELIA BLOOD ASSOCIATE VENIPUNCT S URE BASIC 40605 COMBINED COMBINED METABOLIC 0 PHYSICIAN PHYSICIAN PANEL S LA S LA CALCIUM TOTAL CREATININ 28174 FAMILY MULBERRY E OTHER 0 CARE OFELIA SOURCE ASSOCIATE S TRANSFERA 00199 FAMILY MULBERRY SE 0 CARE OFELIA ASPARTATE ASSOCIATE AMINO S AST SGOT TRANSFERA 60199 FAMILY MULBERRY SE 0 CARE OFEL[facility] ALANINE [place] [address] COMBINED COMBINED THYROID 0 PHYSICIAN PHYSICIAN STIMULATI S LA S LA NG HORMONE TSH URNLS DIP 03440 FAMILY MULBERRY 0 CARE OFELIA STICK/TAB ASSOCIATE LET RGNT S NON-AUTO W/O MICRSCP HEMOGLOBI 18626 FAMILY MULBERRY N 0 CARE OFELIA GLYCOSYLA ASSOCIATE STELLA A1C S LIPID 03505 FAMILY FAMILY PANEL 0 CARE IN SERVICE COORDINATOR ASSOCIATE S S PHYS G0179 FAMILY MULBERRY RE-CERT 0 CARE OFELIA MCR-COVR ASSOCIATE YANELI HLTH S SRVC RE-CERT PRD NORMAL A4256 DOCTOR DOCTOR LOW AND 0 DIABETIC DIABETIC HIGH SUPPLY SUPPLY [employer] R SOLUTION/ CHIPS BLD GLU A4253 DOCTOR DOCTOR TEST/REAG 0 DIABETIC DIABETIC T STRIPS SUPPLY SUPPLY HOME [employer] GLU MON-50 LANCETS A4259 DOCTOR DOCTOR PER BOX 0 DIABETIC DIABETIC OF 100 SUPPLY SUPPLY [employer] LANCETS A4259 DOCTOR DOCTOR PER BOX 0 DIABETIC DIABETIC OF 100 SUPPLY SUPPLY INC INC BLD GLU A4253 DOCTOR DOCTOR TEST/REAG 0 DIABETIC DIABETIC T STRIPS SUPPLY SUPPLY HOME [employer] GLU MON-50 NORMAL A4256 DOCTOR DOCTOR LOW AND 0 DIABETIC DIABETIC HIGH SUPPLY SUPPLY [employer] R SOLUTION/ CHIPS PHYS G0179 FAMILY MULBERRY, RE-CERT 0 CARE JAIR Pascual MCR-COVR ASSOCIATE [facility] S SRVC RE-CERT PRD BLOOD 34723 FAMILY MULBERRY, COUNT 0 CARE JAIR T COMPLETE ASSOCIATE AUTO&AUTO S DIFRNTL WBC ALBUTEROL J7613 YOUR YOUR INHAL 0 PHARMACY PHARMACY NON-CP PROD THRU DME U DOSE 1 MG BLOOD 88559 FAMILY MULBERRY, COUNT 0 CARE JAIR T COMPLETE ASSOCIATE AUTO&AUTO S DIFRNTL WBC ADMN SET A7003 YOUR YOUR SM VOL 0 PHARMACY PHARMACY NONFILTR PNEUMAT NEBULIZR DISPBL PHRM Q0513 YOUR YOUR DISPENSIN 0 PHARMACY PHARMACY G FEE INHALATIO N RX; PER 30 DAYS ALBUTEROL J7620 YOUR YOUR TO 2.5 0 PHARMACY PHARMACY MG & IPRATROPI UM BROM TO 0.5 MG WATER E0217 [facility] CIRCULATI 0 MEDICAL MEDICAL NG HEAT SOLUTIONS SOLUTIONS PAD WITH PUMP SPRING-PO A4258 DOCTOR DOCTOR WERED 0 DIABETIC DIABETIC DEVICE SUPPLY SUPPLY FOR [employer] LANCET EACH NORMAL A4256 DOCTOR DOCTOR LOW AND 0 DIABETIC DIABETIC HIGH SUPPLY SUPPLY [employer] R SOLUTION/ CHIPS BLD GLU A4253 DOCTOR DOCTOR TEST/REAG 0 DIABETIC DIABETIC T STRIPS SUPPLY SUPPLY HOME [employer] GLU MON-50 LANCETS A4259 DOCTOR DOCTOR PER BOX 0 DIABETIC DIABETIC OF 100 SUPPLY SUPPLY [employer] RADIOLOGI 66363 Jovanni JEAN EXAM 9 MEDICAL CORAZON CHEST 2 IMAGING VIEWS ASSOCIATE FRONTAL&L S ATERAL [facility] A4258 DOCTOR DOCTOR WERED 9 DIABETIC DIABETIC DEVICE SUPPLY SUPPLY FOR INC INC LANCET EACH REPL MAURICIO A4235 DOCTOR DOCTOR LITHIUM 9 DIABETIC DIABETIC MED NECES SUPPLY SUPPLY YANELI BG INC INC MON OWN PT EA NORMAL A4256 DOCTOR DOCTOR LOW AND 9 DIABETIC DIABETIC HIGH SUPPLY SUPPLY CALIBRATO INC INC R SOLUTION/ CHIPS LANCETS A4259 DOCTOR DOCTOR PER BOX 9 DIABETIC DIABETIC OF 100 SUPPLY SUPPLY INC INC BLD GLU A4253 DOCTOR DOCTOR TEST/REAG 9 DIABETIC DIABETIC T STRIPS SUPPLY SUPPLY HOME BLD INC INC GLU IIV3 29847 FAMILY MULBERRY, VACCINE 9 CARE JAIR T SPLIT ASSOCIATE VIRUS 0.5 S ML DOSAGE IM USE ADMINISTR G0008 FAMILY MULYSABEL, ATION OF 9 CARE JAIR T INFLUENZA ASSOCIATE VIRUS S VACCINE GLUCOSE 00154 FAMILY MULBERRY, POST 9 CARE JAIR T GLUCOSE ASSOCIATE DOSE S LIPOPROTE 14285 LAB REAGAN LAB REAGAN IN BLOOD 9 [facility]IC [facility]IC [facility] HOLDINGS NUMBERS & SUBCLASSE S COLLECTIO 13301 FAMILY MULBERRY, N VENOUS 9 CARE JAIR T BLOOD [place] [address] COMBINED COMBINED THYROID 9 PHYSICIAN PHYSICIAN STIMULATI S LAB S LAB NG HORMONE TSH LIPID 24399 COMBINED COMBINED PANEL 9 PHYSICIAN PHYSICIAN S LAB S LAB HEMOGLOBI 71847 FAMILY MULBERRY, N 9 CARE JAIR T GLYCOSYLA ASSOCIATE STELLA A1C S COMPREHEN 43907 COMBINED COMBINED SIVE 9 PHYSICIAN PHYSICIAN METABOLIC S LAB S LAB PANEL URNLS DIP 32218 FAMILY MULBERRY, 9 CARE JAIR T STICK/TAB ASSOCIATE LET RGNT S NON-AUTO W/O MICRSCP PHYS G0179 FAMILY MULBERRY, RE-CERT 9 CARE JAIR T MCR-COVR ASSOCIATE YANELI HLTH S SRVC RE-CERT PRD BLD GLU A4253 DOCTOR DOCTOR TEST/REAG 9 DIABETIC DIABETIC T STRIPS SUPPLY SUPPLY HOME BLD INC INC GLU MON-50 LANCETS A4259 DOCTOR DOCTOR PER BOX 9 DIABETIC DIABETIC OF 100 SUPPLY SUPPLY INC INC NORMAL A4256 DOCTOR DOCTOR LOW AND 9 DIABETIC DIABETIC HIGH SUPPLY SUPPLY CALIBRATO INC INC R SOLUTION/ CHIPS BLOOD 67789 FAMILY BENNETT, COUNT 9 CARE JAIR Pascual COMPLETE ASSOCIATE AUTO&AUTO S DIFRNTL WBC PHYS G0179 FAMILY MULBERRY, RE-CERT 9 CARE JAIR Pascual MCR-COVR ASSOCIATE YANELI HLTH S SRVC RE-CERT PRD BLD GLU A4253 DOCTOR DOCTOR TEST/REAG 9 DIABETIC DIABETIC T STRIPS SUPPLY SUPPLY HOME BLD INC INC GLU MON-50 NORMAL A4256 DOCTOR DOCTOR LOW AND 9 DIABETIC DIABETIC HIGH SUPPLY SUPPLY CALIBRATO INC INC R SOLUTION/ CHIPS LANCETS A4259 DOCTOR DOCTOR PER BOX 9 DIABETIC DIABETIC OF 100 SUPPLY SUPPLY INC INC BASIC 97969 COMBINED COMBINED METABOLIC 9 PHYSICIAN PHYSICIAN PANEL S LAB S LAB CALCIUM TOTAL PHYS CERT G0180 FAMILY BENNETT, MCR-COVR 9 CARE JAIR Pascual YANELI [facility] ASSOCIATE SRVC PER S CERT PRD PHYS CERT G0180 FAMILY GUAJARDO, MCR-COVR 9 CARE JAIR Pascual YANELI HLTH ASSOCIATE SRVC PER S CERT PRD SPHERE V2200 SHILOH SHILOH BIFOCL 9 VISION VISION PLANO TO PLUS/ANILA S 4.00D PER LENS BIFOCL V2203 SHILOHTRINITY RDZA PLANO +/- 9 VISION VISION 4.00D SPHER 0.12-2.00 D CYL-EA FRAMES V2020 SHILOHTRINITY RDZA PURCHASES 9 VISION VISION GLUC BLD 73685 GHASSAN FERRELL GLUC MNTR 9 [facility] DEV INC INC CLEARED FDA SPEC HOME USE POSTERIOR V2632 GHASSAN FERRELL CHAMBER 9 [facility] INTRAOCUL INC INC AR LENS CATARACT 78668 GHASSAN FERRELL REMOVAL 9 [facility] INSERTION INC INC OF LENS REPL MAURICIO A4235 DOCTOR DOCTOR LITHIUM 9 DIABETIC DIABETIC MED NECES SUPPLY SUPPLY YANELI BG INC INC MON OWN PT EA SPRING-PO A4258 DOCTOR DOCTOR WERED 9 DIABETIC DIABETIC DEVICE SUPPLY SUPPLY FOR INC INC LANCET EACH BLD GLU A4253 DOCTOR DOCTOR TEST/REAG 9 DIABETIC DIABETIC T STRIPS SUPPLY SUPPLY HOME BLD INC INC GLU MON-50 LANCETS A4259 DOCTOR DOCTOR PER BOX 9 DIABETIC DIABETIC OF 100 SUPPLY SUPPLY INC INC NORMAL A4256 DOCTOR DOCTOR LOW AND 9 DIABETIC DIABETIC HIGH SUPPLY SUPPLY CALIBRATO INC INC R SOLUTION/ CHIPS OPH BMTRY 14452 [facility] 8 EYE , [facility] LENS PWR IDANIA CATARACT 02484 [facility], REMOVAL 8 JEFE A JEFE A INSERTION OF LENS OPHTH 51839 [facility], MEDICAL 8 JEFE A JEFE A XM&EVAL COMPRHNSV ESTAB PT 1/> PHRM Q0513 YOUR YOUR DISPENSIN 8 PHARMACY PHARMACY [employer] INHALATIO N RX; PER 30 DAYS ADMN SET A7003 YOUR YOUR SM VOL 8 PHARMACY PHARMACY [employer] PNEUMAT NEBULIZR DISPBL ALBUTEROL J7620 YOUR YOUR TO 2.5 8 PHARMACY PHARMACY [employer] IPRATROPI UM BROM TO 0.5 MG IIV3 70133 Jack CASTAÑEDA VACCINE 8 CARE G SPLIT [...] DIABETIC OF 100 SUPPLY SUPPLY INC INC ALBUTEROL J7620 YOUR YOUR TO 2.5 8 PHARMACY PHARMACY [employer] IPRATROPI UM BROM TO 0.5 MG PHRM Q0513 YOUR YOUR DISPENSIN 8 PHARMACY PHARMACY [employer] INHALATIO N RX; PER 30 DAYS ADMN SET A7003 YOUR YOUR SM VOL 8 PHARMACY PHARMACY [employer] PNEUMAT NEBULIZR DISPBL [facility] A4258 DOCTOR DOCTOR WERED 8 DIABETIC DIABETIC DEVICE SUPPLY SUPPLY FOR INC INC LANCET EACH REPL MAURICIO A4235 DOCTOR DOCTOR LITHIUM 8 DIABETIC DIABETIC MED NECES SUPPLY SUPPLY YANELI BG INC INC MON OWN PT EA NORMAL A4256 DOCTOR DOCTOR LOW AND 8 DIABETIC DIABETIC HIGH SUPPLY SUPPLY CALIBRATO INC INC R SOLUTION/ CHIPS BLD GLU A4253 DOCTOR DOCTOR TEST/REAG 8 DIABETIC DIABETIC T STRIPS SUPPLY SUPPLY HOME BLD INC INC GLU MON-50 LANCETS A4259 DOCTOR DOCTOR PER BOX 8 DIABETIC DIABETIC OF 100 SUPPLY SUPPLY INC INC SCREENING 09455 [place], 8 MEDICAL MAISHA P MAMMOGRAP IMAGING HY ASSOCIATE BILATERAL S COMPUTER- 71718 [place] [facility], AIDED 8 MEDICAL MAISHA P DETECTION IMAGING ASSOCIATE SCREENING S MAMMOGRAP HY NORMAL A4256 DOCTOR DOCTOR LOW AND 8 DIABETIC DIABETIC HIGH SUPPLY SUPPLY CALIBRATO INC INC R SOLUTION/ CHIPS LANCETS A4259 DOCTOR DOCTOR PER BOX 8 DIABETIC DIABETIC OF 100 SUPPLY SUPPLY INC INC BLD GLU A4253 DOCTOR DOCTOR TEST/REAG 8 DIABETIC DIABETIC T STRIPS SUPPLY SUPPLY HOME BLD INC INC GLU MON-50 NEBULIZER E0570 GUERO JACK WITH 8 HOME MED HOME MED COMPRESSO EQUIP. EQUIP. R [employer]labs NEBULIZER E0570 GUERO JACK WITH 8 HOME MED HOME MED COMPRESSO EQUIP. EQUIP. R [employer] [facility] ARTHROCEN [address] [place] TESIS 8 AND [...] DIABETIC DIABETIC T STRIPS SUPPLY SUPPLY HOME [employer] INC INC GLU MON-50 NEBULIZER E0570 GUERO JACK WITH 8 HOME MED HOME MED COMPRESSO EQUIP. EQUIP. R [employer] [facility] ARTHROCEN 12283 [place] TESIS 8 AND HAND AND HAND ASPIR&/IN SURGEONS SURGEONS J MAJOR PSC PSC JT/BURSA W/O US HYALURONA J7323 [place] N/DERIVAT 8 AND HAND AND HAND MAEVE SURGEONS SURGEONS EUFLEXXA PSC PSC IA INJ PER DOSE HYALURONA J7323 [place] N/DERIVAT 8 AND HAND AND HAND MAEVE SURGEONS SURGEONS EUFLEXXA PSC PSC IA INJ PER DOSE ARTHROCEN 42972 [place] TESIS 8 AND HAND AND HAND ASPIR&/IN SURGEONS SURGEONS J MAJOR PSC PSC JT/BURSA W/O US Encounters Encounter Start End Date Code Location Performer Type Date [facility] GHASSAN - 7 7 [facility] OUTPATIEN [facility] GHASSAN - 7 7 [facility]PATI[facility] GHASSAN - 6 6 [facility]PATIENT [facility] GHASSAN - 6 6 [facility]IEN [facility] GHASSAN - 6 6 [facility] OFFICE 98707 [facility] [place] OUTPATIEN 6 6 PHYSICIAN KIMBERLY T NEW 20 S GROUP MINUTES OFFICE 51134 [facility] PETTEY OUTPATIEN 6 6 PHYSICIAN JAM T NEW 20 S GROUP MINUTES [facility] GHASSAN - 5 5 [facility] OUTPATIEN [facility] EMERGENCY 57262 GHASSAN Lerner 5 5 [facility] T VISIT P LOW/MODER SEVERITY HOSPITAL GHASSAN - 4 4 [facility] OUTPATIEN [facility] OFFICE 67739 MULBERRY MULBERRY OUTPATIEN 3 3 OFELIA OFELIA T VISIT 15 MINUTES [facility] GHASSAN - 3 3 [facility] OUTPATIEN [facility] GHASSAN - 2 2 [facility]PATI[facility] GHASSAN - 2 2 [facility] GHASSAN - 2 2 [facility]IEN [facility] GHASSAN - 2 2 [facility] OUTPATIEN INC T HOSPITAL GHASSAN - 2 2 [facility] OUTPATIEN INC T EMERGENCY 56800 ATUL STEWARD DEPT 2 2 EMERGENCY [facility] VISIT SERVICES HIGH SEVERITY& THREAT [facility] GHASSAN - 2 2 [facility] OUTPATIEN INC EMERGENCY 02070 GHASSAN 2 2 [facility]PARTMEN [facility] T VISIT HIGH/URGE NT SEVERITY HOSPITAL GH[facility]AN - 1 1 [facility]EN [facility] - 1 1 [facility] OUTPATIEN INC EMERGENCY 39358 ATUL STEWARD 1 1 EMERGENCY [facility] DEPARTMEN SERVICES T VISIT HIGH/URGE NT SEVERITY EMERGENCY 87025 GHASSAN 1 1 [facility]MEN [facility] T VISIT LOW/MODER SEVERITY OFFICE 76659 FAMILY MULBERRY OUTPATIEN 1 1 CARE OFELIA T VISIT ASSOCIATE 25 S MINUTES [facility] GHASSAN - 0 0 [facility] OUTPATIEN INC OFFICE 58022 FAMILY MULBERRY OUTPATIEN 0 0 CARE OFELIA T VISIT ASSOCIATE 15 S MINUTES OFFICE 61060 FAMILY MULBERRY OUTPATIEN 0 0 CARE OFELIA T VISIT ASSOCIATE 25 S MINUTES OFFICE 08683 FAMILY MULBERRY, OUTPATIEN 0 0 CARE JAIR T T VISIT ASSOCIATE 15 S MINUTES OFFICE 51828 FAMILY MULBERRY, OUTPATIEN 0 0 CARE JAIR T T VISIT ASSOCIATE 15 S MINUTES [facility] GHASSAN - 9 9 [facility] OUTPATIEN INC T OFFICE 79375 FAMILY MULBERRY, OUTPATIEN 9 9 CARE JAIR T T VISIT ASSOCIATE 40 S MINUTES OFFICE 26156 FAMILY MULBERRY, OUTPATIEN 9 9 CARE JAIR T T VISIT ASSOCIATE 15 S MINUTES OFFICE 19926 FAMILY MULBERRY, OUTPATIEN 9 9 CARE JAIR T T VISIT ASSOCIATE 15 S MINUTES OFFICE 41506 FAMILY MULBERRY, OUTPATIEN 9 9 CARE JAIR T T VISIT ASSOCIATE 25 S MINUTES [facility] GHASSAN - 9 9 [facility] OUTPATIEN INC T OFFICE 09565 [facility] CONSULTAT 8 8 EYE , [facility] NEW/ESTAB PATIENT 60 MIN OFFICE 41610 FAMILY MULBERRY, OUTPATIEN 8 8 CARE JAIR T T VISIT ASSOCIATE 25 S MINUTES [place]ICE [address] [place] 8 8 AND HAND AND HAND T VISIT SURGEONS SURGEONS 10 PSC PSC MINUTES
--- OUTSIDE RECORDS SUMMARY | 2017-01-23 09:41 | External Medical Summary Rpt ---
Author Author , Organization [employer] Address Unknown Phone Unavailable Care Team Providers Care Drilling Field Operator Name Role Phone [facility] Un[facility], [facility] BEINEKE ESAU, ZACHARIAH Unavailable Unavailable MARIANO GUTIERREZ Unavailable Unavailable BESSON, BESSON Unavailable Unavailable BESSON VIOLETA, BESSON Unavailable Unavailable VIOLETA [facility], Unavailable Unavailable [facility], Unavailable Unavailable [facility] NEENA RODRIGUEZ, Unavailable Unavailable NEENA RODRIGUEZ CANNON, CANNON Unavailable Unavailable ESTEVAN MCCAIN Unavailable Unavailable [facility] Unavailable Unavailable SERVICE, [facility] Un[facility] Unavailable [place], [facility] Unavailable Unavailable [facility], [facility] Unavailable Unavailable LAB, [facility] Unavailable Unavailable [facility] [place] OF THE BLUE Jack [facility] [...] Unavailable Unavailable INC, [facility] Unavailable Unavailable HOSPITAL P, [facility] Unavailable Unavailable SOLUTIONS, [facility] ROSE KENDRICK, ROSE KENDRICK Unavailable Unavailable ROSE KENDRICK, ROSE KENDRICK Unavailable Unavailable ROSE, JEFE A, Unavailable Unavailable ROSE, JEFE A [facility], Unavailable Unavailable [facility], Unavailable Unavailable [facility], Unavailable Unavailable [facility] JASPER VITOR, JASPER Unavailable Unavailable VITOR [facility] Unavailable Unavailable [facility], [facility] Unavailable Unavailable [facility], [facility] Unavailable Unavailable [facility], [facility] JOHNSON KIMBERLY, JOHNSON Unavailable Unavailable KIMBERLY [facility] Unavailable Unavailable SERVICES, [facility] ANGELINAE JUANITA, Unavailable Unavailable MCKEMIE [...] Unavailable Unavailable EQUIPME, [facility] Unavailable Unavailable SUPPLY, [facility] Unavailable Unavailable #591, [facility] [facility] # Unavailable Unavailable [id number], [facility] # [id number] [facility] Unavailable Unavailable [facility]ARMACY [facility], Unavailable [facility]available [facility], Unavailable Unavailable [facility] Purpose Continuity of Care Document - 07-25-2007 through 2016 Problems Code Diagnosis DOS Provider Status J441 CHRONIC 09-18-2016 [facility] [place]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 ION J9601 ACUTE 09-18-2016 [facility] [place] RESPIRATORY HOME FAILURE MEDICAL WITH EQUIPME HYPOXIA J449 CHRONIC 09-10-2016 [facility] P[facility]MONARY LLC DISEASE UNS R1033 PERIUMBILIC 08-23-2016 [facility] B32783 PAIN IN 08-07-2016 [facility] R600 LOCALIZED 08-07-2016 [facility] E039 HYPOTHYROID 07-14-2016 [facility]M [facility] UNSPECIFIED INC E119 TYPE 2 07-14-2016 [facility] DIABETES [facility] MELLITUS INC WITHOUT COMPLICATIO NS E785 HYPERLIPIDE 07-14-2016 [facility] TAL[facility]HA [facility] UNSPECIFIED INC I10 ESSENTIAL 07-14-2016 [facility] PRIMARY [facility] HYPERTENSIO INC N R05 COUGH 07-13-2016 [facility] R0602 SHORTNESS 07-13-2016 [place] [facility] R918 OTHER 07-13-2016 [facility] NONSPECIFIC MEDICAL ABNORMAL IMAGING ASS FINDING OF LUNG FIELD U79354 SQUAMOUS 02-03-2016 [facility] CARCINOMA GROUP SKIN OTHER PARTS OF FACE D2239 MELANOCYTIC 02-03-2016 [facility] NEVI OF PHYSICIANS OTHER PARTS GROUP OF FACE L989 DISORDER 02-03-2016 COMM[facility]ITY THE SKIN & ANESTH OF SUBCUTANEOU THE BLUE S TISSUE UNS V87273 ENCOUNTER 02-01-2016 [facility] P AL CARIOVASCUL AR EXAM H37894 ENCOUNTER 02-01-2016 [facility] P AL LABORATORY EXAM D492 NEOPLASM OF 01-20-2016 [facility] UNS PHYSICIANS BEHAVIOR GROUP BONE SOFT TISSUE & SKIN D4989 NEOPLASM OF 01-20-2016 [facility] PHYSICIANS UNSPECIFIED GROUP BEHAVIOR OTH SPEC SITES M170 BILATERAL 11-02-2015 [facility] PRIMARY PHYSICIANS OSTEOARTHRI GROUP TIS OF KNEE A91633 VARUS 11-02-2015 [facility] DEFORMITY PHYSICIANS NEC RIGHT GROUP KNEE L43552 VARUS 11-02-2015 [facility] DEFORMITY PHYSICIANS NEC LEFT GROUP KNEE 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 7242 LUMBAGO 02-14-2015 [facility] 51571 SPASM OF 02-14-2015 [facility] MUSCLE [facility] 87823 ABDOMINAL 02-14-2015 [facility] PAIN, MEDICAL UNSPECIFIED IMAGING ASS SITE 57351 DIAB W/O 01-14-2015 HOME HEALTH COMP TYPE ADVISORS II/UNS NOT STATED UNCNTRL 91727 PAIN IN OR 11-09-2014 [facility] AROUND [facility]YE [facility] 4019 UNSPECIFIED 11-09-2014 [facility] ESSENTIAL [facility] [place] N [address] OPEN WOUND 11-09-2014 [facility] WITHOUT IMAGING ASS MENTION COMPLICATIO N 920 CONTUSION 11-09-2014 [facility] OF FACE [facility] P NECK EXCEPT EYE 9219 UNSPECIFIED 11-09-2014 [facility] CONTUSION MEDICAL OF EYE IMAGING ASS E8498 OTHER 11-09-2014 [facility] PL[facility] OF HOSPITAL P OCCURRENCE 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[facility] SYNDROME 496 CHRONIC 06-24-2014 [facility]AY [facility] OBSTRUCTION INC NEC 7862 COUGH 06-24-2014 [facility] HOS[facility] INC 12250 ASTHMA, 02-16-2014 [facility] UNSPECIFIED HOME , MEDICAL UNSPECIFIED EQUIPME STATUS 91838 OBSTRUCTIVE 12-19-2012 [facility] BRONCHITIS LLC WITH EXACERBATIO N 7850 UNSPECIFIED 06-19-2012 ANN ADRIAN JUANITA TACHYCARDIA 4293 CARDIOMEGAL 05-10-2012 [facility] Y [facility] 4659 ACUTE URIS 05-10-2012 [facility] HOSP UNSPECIFIED INC SITE 5119 UNSPECIFIED 05-10-2012 [facility] PLEURAL MEDICAL EFFUSION [facility] 26018 OSTEOARTHRO 03-21-2012 [facility] JAM SIS UNSPEC WHETHER GEN/LOC LOWER LEG 09637 PAIN IN 02-29-2012 [facility] JAM JOINT, LOWER LEG 4871 INFLUENZA 10-04-2011 [facility] WITH OTHER OFELIA RESPIRATORY MANIFESTATI ONS 76548 INFLUENZA 09-29-2011 [facility] D/T ID EMERGENCY STORM FLU SERVICES VIRUS OTH RESP MANIF 5199 UNSPECIFIED 09-29-2011 [facility] DISEASE OF MEDICAL IMAGING ASS RESPIRATORY SYSTEM 24302 UNSPECIFIED 08-07-2011 ROSE MARKS TEAR FILM INSUFFICIEN CY V7612 OTHER 04-27-2011 [facility] MAM[facility] 9221 CONTUSION 04-17-2011 [facility] EMERGENCY W[facility] SERVICES E8889 UNSPECIFIED 04-17-2011 [facility]ENC[facility] SERVICES 2449 UNSPECIFIED 04-16-2011 [facility] HYPOTHYROID LA ISM 5990 URINARY 04-16-2011 [facility] TRACT [facility] INFECTION LA SITE NOT SPECIFIED 64353 DIAB 10-18-2010 [facility] TYPE II/UNS NOT UNCNTRL 3572 POLYNEUROPA 10-18-2010 [facility] TH[facility] IN [facility]OLOG[facility] DIABETES [facility] 2724 OTHER AND 10-16-2010 [facility] HYPERLIPIDE TALISHA 7292 UNSPECIFIED 10-16-2010 [facility] NEURALGIA [facility] NEURITIS AND RADICULITIS 32367 AFTER-CATAR 06-12-2010 RO[facility] MARKS ACT, OBSCURING VISION V0481 NEED 04-25-2010 [facility] PROPHYLACTI [facility] C VACCINATION &INOCULATIO N FLU 90055 CHRONIC 02-10-2010 [facility] OBSTRUCTIVE [facility] ASTHMA WITH EXACERBATIO N 23337 PRIMARY 02-10-2010 [facility] LOCALIZED ASSOCIATES OSTEOARTHRO SIS LOWER LEG 7823 EDEMA 02-10-2010 [facility] 08106 GENERALIZED 09-20-2009 [facility] OSTEOARTHRO SIS UNSPECIFIED SITE 7245 UNSPECIFIED 03-04-2009 [facility] BACKACHE ASS[facility]ATES 1179 OTHER AND 02-03-2009 [facility] UNSPECIFIED ASSOCIATES MYCOSES 60530 CHRONIC 02-03-2009 [facility] OBSTRUCTIVE [facility]OCIATES ASTHMA UNSPECIFIED 45916 OSTEOARTHRO 02-03-2009 [facility] S INVLV MX ASSOCIATES SITES BUT NOT SPEC GEN 03263 ASTHMA 12-09-2008 [facility] UNSPECIFIED ASSOCIATES WITH EXACERBATIO N 96000 CHRONIC 11-26-2008 [facility]STRUCT[facility] ASTHMA W/STATUS ASTHMATICUS 94221 UNSPECIFIED 11-26-2008 [facility] URINARY [facility]OCI[facility] INCONTINENC E 68169 SHORTNESS 09-30-2008 [facility] OF BREATH ASSOCIATES V431 LENS 08-24-2008 SHILOH REPLACED BY VISION OTHER MEANS 81178 NUCLEAR 08-17-2008 [facility] 3669 UNSPECIFIED 08-17-2008 ROSE, CATARACT JEFE A 11924 DIAB 06-15-2008 [facility] W/OPHTH EYE MANIFESTS INSTITUTE TYPE II/UNS NOT UNCNTRL 3688 OTHER 06-15-2008 [facility] SPECIFIED EYE VISUAL INSTITUTE DISTURBANCE S 34816 DERMATOCHAL 06-15-2008 [facility] 58720 PAIN IN 04-01-2008 [facility] JOINT, ASSOCIATES [...] USED W/ 7 PHARMACY PHARMACY DME NEB [facility] ADMN SET A7005 YOUR YOUR W/SM VOL 7 PHARMACY PHARMACY NONFILTR [facility] NEBULIZR NON-DISPB L ALBUTEROL J7613 YOUR YOUR INHAL 7 PHARMACY PHARMACY NON-CP [facility] PROD THRU DME [place] [address] [place] [address] [facility] ROGERSON ABDOMEN & 7 MEM HOSP MEM HOSP PELVIS INC INC W/O CONTRAST MATERIAL O2 CONC 1 E1390 [facility] MOMIN PORT 7 HOME HOME 85%/>02 MEDICAL MEDICAL CONC AT EQUIPME EQUIPME PRSC FLW RATE PRTBLE E0431 [facility] SANCHEZRELL GASEOUS 7 HOME HOME O2 SYS MEDICAL MEDICAL RENT; EQUIPME EQUIPME FLWMTR HUMIDFR&M ASK DUP-SCAN 87902 [place] CANNON XTR VEINS 7 MEDICAL IMAGING UNILATERA ASS L/LIMITED STUDY O2 CONC 1 E1390 [facility] JACK DEL PORT 6 HOME HOME 85%/>02 MEDICAL MEDICAL CONC AT EQUIPME EQUIPME PRSC FLW RATE PRTBLE E0431 [facility] SANCHEZRELL GASEOUS 6 HOME HOME O2 SYS MEDICAL MEDICAL RENT; EQUIPME EQUIPME FLWMTR HUMIDFR&M ASK AMB A0427 [facility] SERVICE 6 AMBULANCE AMBULANCE ALS SERVICE SERVICE EMERGENCY TRANSPORT LEVEL 1 RADIOLOGI 80137 [place] AMIRA C 6 MEDICAL EXAMINATI IMAGING ON CHEST ASS SINGLE VIEW FRONTAL ECG 30208 [facility] LANG ROUTINE 6 [facility] W/LEAST P 12 LDS I&R ONLY GROUND A0425 [facility] MILEAGE 6 AMBULANCE AMBULANCE PER SERVICE SERVICE STATUTE MILE ADJT TIS 23207 [facility] FERRELL TRNS/REAR 6 MEM HOS[facility] H[facility] GMT INC INC F/C/C/M/N /A/G/H/F 10SQCM/< GLUC BLD 27380 [facility] FERRELL GLUC MNTR 6 [facility] DEV INC [place] [address] [facility]ERRELL SURG [address] [facility] PATHOLOGY INC INC GROSS&EDUARDO ROSCOPIC EXAM ANES 73929 COMMUNITY BARRETO ESAU INTEG 6 ANESTH MUSC & OF THE NRV HEAD BLUE NECK&POST ERIOR TRUNK ECG 34963 [facility] FERRELL ROUTINE 6 [facility] ECG INC INC W/LEAST 12 LDS TRCG ONLY W/O I&R COLLECTIO 67679 [facility] FERRELL N VENOUS [address] [facility]OSP BLOOD INC INC VENIPUNCT URE ECG 66839 [facility] LANG ROUTINE 6 [facility] W/LEAST P 12 LDS I&R ONLY COMPREHEN 31236 [facility] FERRELL SIVE 6 [facility] METABOLIC INC INC PANEL ARTHROCEN 80394 [facility] TESIS 6 PHYSICIAN JENNIFER ASPIR&/IN S GROUP J MAJOR JT/BURSA W/O US HYALURONA J7325 [facility] N/DERIV 6 PHYSICIAN JENNIFER SYNVISC/S S [...] ADVISORS ADVISORS CALIBRATO R SOLUTION/ CHIPS RADEX 40248 [facility] SPINE 5 MEDICAL ESAU LUMBOSACR IMAGING AL ASS MINIMUM 4 VIEWS RADEX 54398 [facility] ABDOMEN 1 5 MEDICAL ESAU IMAGING ANTEROPOS ASS [facility] A4258 HOME HOME WERED 5 HEALTH HEALTH [...] ADVISORS ADVISORS CALIBRATO R SOLUTION/ CHIPS RADEX 54190 [place] AMIRA ORBITS 5 MEDICAL ELIA COMPLETE IMAGING MINIMUM 4 ASS VIEWS WRIST L3908 [facility] HAND 5 MEDICAL MEDICAL ORTHOSIS [place] EXT CONTROL COCK-UP PREFAB RADIOLOGI 16157 [facility] FER[facility]LL C EXAM 4 [facility] CHEST 2 INC INC VIEWS FRONTAL&L ATERAL NORMAL A4256 [facility] LOW AND 4 MEDICAL MEDICAL HIGH [facility] CALIBRATO R SOLUTION/ CHIPS LANCETS A4259 [facility] PER BOX 4 MEDICAL MEDICAL OF [address] [place] [address] [place] BLD GLU A4253 [facility] TEST/REAG [...] 85%/>02 MEDICAL MEDICAL CONC AT EQUIPME EQUIPME [facility] FLW RATE NORMAL A4256 HOME HOME LOW [...] HOME 85%/>02 [facility] FL[facility] O2 CONC 1 E1390 [facility] SANCHEZRELL DEL PORT 4 HOME HOME 85%/>02 MEDICAL MEDICAL CONC AT EQUIPME EQUIPME [facility] FLW RATE SPRING-PO A4258 [facility] BEYOND WERED 4 MEDICAL MULCHER OPERATOR [place] FOR LANCET EACH BLD GLU [...] BEYOND TEST/REAG 4 MEDICAL MEDICAL T STRIPS [facility] HOME BLD GLU MON-50 HOME E0607 [facility] BLOOD 4 MEDICAL MEDICAL GLUCOSE [facility] MONITOR O2 CONC 1 E1390 [facility] JACK DEL PORT 4 HOME HOME 85%/>02 MEDICAL MEDICAL CONC AT EQUIPME EQUIPME [facility] FLW RATE O2 CONC 1 E1390 [facility] MOMIN PORT 3 HOME HOME 85%/>02 MEDICAL MEDICAL CONC AT EQUIPME EQUIPME [facility] FLW RATE REPL MAURICIO A4233 HOME HOME [...] RATE SPRING-PO A4258 [place] WERED 3 [facility] STATES DEVICE MEDICAL MEDICAL FOR SUPPLY SUPPLY LANCET EACH NORMAL A4256 [place] CARMEL LOW AND 3 [facility] STATES HIGH MEDICAL MEDICAL CALIBRATO SUPPLY SUPPLY R SOLUTION/ CHIPS LANCETS A4259 UNITED UNITED PER BOX 3 STATES STATES OF 100 MEDICAL MEDICAL SUPPLY SUPPLY BLD GLU A4253 [place] CARMEL TEST/REAG 3 STATES STATES T STRIPS MEDICAL [...] LANCETS A4259 HOME HOME PER BOX [address] [facility] OF 100 ADVISORS ADVISORS NORMAL A4256 HOME [...] PER SESS TO 2 PER DAY DETERMINA 95618 ROSE MARKS TION 3 REFRACTIV E STATE OPHTH 19232 [facility] 3 XM&EVAL COMPRHNSV ESTAB PT [...] & IPRATROPI UM BROM TO 0.5 MG CADOTT-PO A4258 PLAZA PLAZA WERED 2 HEALTHCAR HEALTHCAR [...] PER SESS TO 2 PER DAY EXTERNAL 83699 [facility] FERRELL ECG 2 [facility] SCANNING INC INC ANALYSIS REPORT XTRNL ECG 70115 [facility] FERRELL & 48 HR 2 MEM HOS[facility] MEM HOSP RECORDING INC INC O2 CONC 1 E1390 [facility] SANCHEZRELL DEL PORT 2 HOME HOME 85%/>02 MEDICAL MEDICAL CONC AT EQUIPME EQUIPME PRS FLW RATE XTRNL ECG 08653 ANN RODMIE 2 JR JUANITA JR JUANITA [...] PER SESS TO 2 PER DAY SPMTRY 31514 BESSON BESSON W/VC 2 VIOLETA VIOLETA EXPIRATOR [...] 85%/>02 MEDICAL MEDICAL CONC AT EQUIPME EQUIPME [facility] FLW RATE RADIOLOGI 32828 AM[facility] AMIRA C EXAM 2 ELIA ELIA CHEST 2 VIEWS FRONTAL&L ATERAL RADIOLOGI 22162 [place] [facility] C EXAM 2 MEDICAL ELIA CHEST 2 IMAGING VIEWS ASS FRONTAL&L ATERAL PRESSURIZ 62953 [facility] FERRELL ED/NONPRE 2 [facility] HOSP SSURIZED INC INC INHALATIO N [...] YNVISC-ON E IA INJ 1 MG RADIOLOGI 06012 [facility] FERRELL C EXAM 2 [facility] HOSP KNEE INC INC COMPLETE 4/MORE VIEWS [facility] A4258 PLAZA PLAZA WERED 2 HEALTHCAR HEALTHCAR [...] OF 100 E E SOLUTIONS SOLUTIONS NATRIURET 67400 [facility] F[facility]LL IC 2 [facility] [place] [address] [facility] FERRELL TROPONIN 2 [facility] HOS[facility] QUANTITAT INC INC MAEVE BLOOD 98492 [facility] FERRELL COUNT 2 [facility]OS[facility] COMPLETE INC INC AUTO&AUTO DIFRNTL WBC BASIC 09684 [facility] FERRELL METABOLIC 2 [facility] PANEL INC INC CALCIUM TOTAL CREATINE 57428 [facility] FERRELL KINASE MB 2 [facility] FRACTION INC INC ONLY CULTURE 66647 [facility] FER[facility]LL BACTERIAL 2 [facility] BLOOD INC INC AEROBIC W/ID ISOLATES SMR PRIM 13652 [facility] FERRELL SRC 2 [facility] GRAM/GIEM INC INC [place] ST[place] B[place] FUN[place] [address] [facility] FERRELL INFUSION 2 [facility] THERAPY/P INC INC ROPHYLAXI S /DX 1ST TO 1 HR PRESSURIZ 40505 [facility] FERRELL ED/NONPRE 2 [facility] SSURIZED INC INC INHALATIO N TREATMENT ECG 36349 ATUL STEWARD ROUTINE 2 EMERGENCY EDUARDO ECG SERVICES W/LEAST 12 LDS I&R ONLY RADIOLOGI 86223 GH[facility] FERRELL C 2 [facility] EXAMINATI INC INC ON CHEST SINGLE VIEW FRONTAL ECG 84048 [facility] FERRELL ROUTINE 2 [facility] ECG INC INC W/LEAST 12 LDS TRCG ONLY W/O I&R CREATINE 73266 [facility] FERRELL KINASE 2 [facility] TOTAL INC INC IAADI 75164 [facility] INFLUENZA 2 [facility] B VIRUS INC INC IAADI 43425 [facility] ROGERSON INFFLUENZ 2 [facility]OS[facility] A A VIRUS INC INC INJECTION J0456 [facility] FERRELL 2 [facility] AZITHROMY INC INC RADHAMES 500 MG DETERMINA 67527 ROSE MARKS TION [address] [facility] A4258 PLAZA PLAZA WERED 1 HEALTHCAR [...] HY PASCALE INCL CAD WHEN PERFORMD - 68707 [facility] F[facility] AIDED 1 [facility] DETECTION INC INC SCREENING MAMMOGRAP HY RADEX 82694 [place] [facility] STERNUM 1 MEDICAL ELIA MINIMUM 2 IMAGING VIEWS ASS RADIOLOGI 77880 [place] [facility] C EXAM 1 MEDICAL ELIA CHEST 2 IMAGING VIEWS ASS FRONTAL&L ATERAL BASIC 21098 COMBINED COMBINED METABOLIC 1 PHYSICIAN PHYSICIAN [place] [address] COMBINED COMBINED THYROID 1 PHYSICIAN PHYSICIAN STIMULATI [...] OF 100 E E SOLUTIONS SOLUTIONS H-REFLEX 33534 [facility] AM[facility]T&[facility]AT [facility] GA[facility]/S [facility] OLEUS MUSC GLUCOSE 16873 FAMILY [facility] POST 1 CARE OFELIA GLUCOSE ASSOCIATE DOSE S HEMOGLOBI 08014 FAMILY FAMILY N 1 CARE CARE GLYCOSYLA [...] CALIBRATO SOLUTIONS SOLUTIONS R SOLUTION/ [facility]IPS OPHTH 77392 RO[facility] KENDRICK [facility] MEDICAL 0 XM&EVAL COMPRHNSV ESTAB PT 1/> SPRING-PO A4258 FINN BRISENO WERED 0 HEALTHCAR HEALTHCAR DEVICE E E FOR SOLUTIONS SOLUTIONS LANCET EACH RADEX 20003 [place] [facility] SPINE 0 MEDICAL ELIA LUMBOSACR IMAGING AL ASS MINIMUM 4 VIEWS URNLS DIP 37418 FAMILY [facility] 0 CARE OFELIA STICK/TAB ASSOCIATE LET RGNT S NON-AUTO W/O MICRSCP IIV 80622 [facility] VACCINE 0 CARE OFELIA PRESERV ASSOCIATE FREE S INCREASED AG CONTENT IM ADMINISTR G0008 [facility]ILY [facility] ATION OF 0 CARE OFELIA INFLUENZA ASSOCIATE VIRUS S VACCINE CULTURE 71839 COMBINED COMBINED BACTERIAL 0 PHYSICIAN PHYSICIAN S LA S LA QUANTTATI VE COLONY COUNT URINE GLUCOSE 78790 [facility] POST 0 CARE OFELIA GLUCOSE ASSOCIATE DOSE S ALBUMIN 94390 FAMILY M[facility] URINE 0 CARE OFELIA MICROALBU ASSOCIATE MIN S SEMIQUANT ITATIVE COLLECTIO 64924 FAMILY M[facility] N VENOUS 0 CARE OFELIA BLOOD ASSOCIATE VENIPUNCT S URE BASIC 91809 COMBINED COMBINED METABOLIC 0 PHYSICIAN PHYSICIAN PANEL S LA S LA CALCIUM TOTAL CREATININ 94050 FAMILY [facility] E OTHER 0 CARE OFELIA SOURCE ASSOCIATE S TRANSFERA 64473 FAMILY M[facility] SE 0 CARE OFEILA ASPARTATE ASSOCIATE AMINO S AST SGOT TRANSFERA 34883 FAMILY [facility] SE 0 CARE OFELIA ALANINE [place] [address] COMBINED COMBINED THYROID 0 PHYSICIAN PHYSICIAN STIMULATI S LA S LA NG HORMONE TSH URNLS DIP 07799 FAMILY [facility] 0 CARE OFELIA STICK/TAB ASSOCIATE LET RGNT S NON-AUTO W/O MICRSCP HEMOGLOBI 57992 FAMILY [facility] N 0 CARE OFELIA GLYCOSYLA ASSOCIATE STELLA A1C S LIPID 67285 FAMILY FAMILY PANEL 0 CARE FEED PREPARATION OPERATOR ASSOCIATE S S PHYS G0179 [facility]ILY [facility] RE-CERT 0 CARE OFELIA MCR-COVR ASSOCIATE YANELI HLTH S SRVC RE-CERT PRD NORMAL A4256 DOCTOR DOCTOR LOW AND 0 DIABETIC DIABETIC HIGH SUPPLY SUPPLY Zoom R SOLUTION/ CHIPS BLD GLU A4253 DOCTOR DOCTOR TEST/REAG 0 DIABETIC DIABETIC T STRIPS SUPPLY SUPPLY HOME Step [employer] GLU MON-50 LANCETS A4259 DOCTOR DOCTOR PER BOX 0 DIABETIC DIABETIC OF 100 SUPPLY SUPPLY [employer] INC LANCETS A4259 DOCTOR DOCTOR PER BOX 0 DIABETIC DIABETIC OF 100 SUPPLY SUPPLY INC INC BLD GLU A4253 DOCTOR DOCTOR TEST/REAG 0 DIABETIC DIABETIC T STRIPS SUPPLY SUPPLY HOME Step [employer] [employer] GLU MON-50 NORMAL A4256 DOCTOR DOCTOR LOW AND 0 DIABETIC DIABETIC HIGH SUPPLY SUPPLY Zoom R SOLUTION/ CHIPS PHYS G0179 FAMILY [facility]Y, RE-CERT 0 CARE JAIR Pascual MCR-COVR ASSOCIATE [facility] S SRVC RE-CERT PRD BLOOD 14026 FAMILY [facility], COUNT 0 CARE JAIR T COMPLETE ASSOCIATE AUTO&AUTO S DIFRNTL WBC ALBUTEROL J7613 YOUR YOUR INHAL 0 PHARMACY PHARMACY NON-CP PROD THRU DME U DOSE 1 MG BLOOD 90251 [facility]ILY [facility], COUNT 0 CARE JAIR T COMPLETE ASSOCIATE AUTO&AUTO S DIFRNTL WBC ADMN SET A7003 YOUR YOUR SM VOL 0 PHARMACY PHARMACY NONFILTR PNEUMAT NEBULIZR DISPBL PHRM Q0513 YOUR YOUR DISPENSIN 0 PHARMACY PHARMACY G FEE INHALATIO N RX; PER 30 DAYS ALBUTEROL J7620 YOUR YOUR TO 2.5 0 PHARMACY PHARMACY MG & IPRATROPI UM BROM TO 0.5 MG WATER E0217 [facility] CIRCULATI 0 MEDICAL MEDICAL NG HEAT SOLUTIONS SOLUTIONS PAD WITH PUMP SPRING-PO A4258 DOCTOR DOCTOR WERED 0 DIABETIC DIABETIC DEVICE SUPPLY SUPPLY FOR [employer] LANCET EACH NORMAL A4256 DOCTOR DOCTOR LOW AND 0 DIABETIC DIABETIC HIGH SUPPLY SUPPLY Zoom R SOLUTION/ CHIPS BLD GLU A4253 DOCTOR DOCTOR TEST/REAG 0 DIABETIC DIABETIC T STRIPS SUPPLY SUPPLY HOME [employer] GLU MON-50 LANCETS A4259 DOCTOR DOCTOR PER BOX 0 DIABETIC DIABETIC OF 100 SUPPLY SUPPLY [employer] INC RADIOLOGI 74402 Jovanni JEAN EXAM 9 MEDICAL CORAZON CHEST 2 IMAGING VIEWS ASSOCIATE FRONTAL&L S [facility]TER[facility] A4258 DOCTOR DOCTOR WERED 9 DIABETIC DIABETIC [...] SUPPLY HOME BLD INC INC GLU IIV3 58680 FAMILY MULBERRY, VACCINE 9 CARE JAIR T SPLIT ASSOCIATE VIRUS 0.5 S ML DOSAGE IM USE ADMINISTR G0008 FAMILY MULYSABEL, ATION OF 9 CARE JAIR T INFLUENZA ASSOCIATE VIRUS S VACCINE GLUCOSE 62026 FAMILY MULBERRY, POST 9 CARE JAIR T GLUCOSE ASSOCIATE DOSE S LIPOPROTE 81903 LAB [facility] LAB REAGAN IN BLOOD 9 [facility] HOLDINGS HOLDINGS NUMBERS & SUBCLASSE S COLLECTIO 08097 FAMILY MULBERRY, N VENOUS 9 CARE JAIR T BLOOD [place] [address] COMBINED COMBINED THYROID 9 PHYSICIAN PHYSICIAN STIMULATI S LAB S LAB NG HORMONE TSH LIPID 53610 COMBINED COMBINED PANEL 9 PHYSICIAN PHYSICIAN S LAB S LAB HEMOGLOBI 81487 FAMILY MULBERRY, N 9 CARE JAIR T GLYCOSYLA ASSOCIATE STELLA A1C S COMPREHEN 09746 COMBINED COMBINED SIVE 9 PHYSICIAN PHYSICIAN METABOLIC S LAB S LAB PANEL URNLS DIP 68189 FAMILY MULBERRY, 9 CARE JAIR T STICK/TAB [...] CALIBRATO INC INC R SOLUTION/ CHIPS BLOOD 17696 FAMILY BENNETT, COUNT 9 CARE JAIR Pascual [...] OF 100 SUPPLY SUPPLY INC INC BASIC 65457 COMBINED COMBINED METABOLIC 9 PHYSICIAN PHYSICIAN PANEL S LAB S LAB CALCIUM TOTAL PHYS CERT G0180 FAMILY BENNETT, MCR-COVR 9 CARE JAIR Pascual YANELI [facility] ASSOCIATE SRVC PER S CERT [...] RDZA PURCHASES 9 VISION VISION GLUC BLD 96740 [facility] GLUC MNTR 9 [facility] DEV INC INC CLEARED FDA SPEC HOME USE POSTERIOR V2632 [facility] CHAMBER 9 [facility] INTRAOCUL INC INC AR LENS CATARACT 59002 [facility] REMOVAL 9 [facility] H[facility] MEM [...] INC INC R SOLUTION/ CHIPS OPH BMTRY 93200 [facility] 8 EYE , [facility] IO LENS PWR IDANIA CATARACT 91603 [facility], REMOVAL 8 JEFE A JEFE A INSERTION OF LENS OPHTH 85298 [facility], MEDICAL 8 JEFE A JEFE A XM&EVAL COMPRHNSV ESTAB PT 1/> PHRM Q0513 YOUR YOUR DISPENSIN 8 PHARMACY PHARMACY [employer] INHALATIO N RX; PER 30 DAYS ADMN SET A7003 YOUR YOUR SM VOL 8 PHARMACY PHARMACY [employer] PNEUMAT NEBULIZR DISPBL ALBUTEROL J7620 YOUR YOUR TO 2.5 8 PHARMACY PHARMACY [employer] IPRATROPI UM BROM TO 0.5 MG IIV3 55636 Jack CASTAÑEDA VACCINE 8 CARE G SPLIT [...] YOUR TO 2.5 8 PHARMACY PHARMACY MG [employer] IPRATROPI UM BROM TO 0.5 MG PHRM Q0513 YOUR YOUR DISPENSIN 8 PHARMACY PHARMACY [employer] INHALATIO N RX; PER 30 DAYS ADMN SET A7003 YOUR YOUR SM VOL 8 PHARMACY PHARMACY [employer] PNEUMAT NEBULIZR DISPBL [facility] A4258 DOCTOR DOCTOR WERED 8 DIABETIC DIABETIC [...] OF 100 SUPPLY SUPPLY INC INC SCREENING 48258 [place] KAE, 8 MEDICAL MAISHA P MAMMOGRAP IMAGING HY ASSOCIATE BILATERAL S COMPUTER- 18927 [place] KAE, AIDED 8 MEDICAL MAISHA P DETECTION [...] MED HOME MED COMPRESSO EQUIP. EQUIP. R [facility] NEBULIZER [id number] GUERO JACK WITH 8 HOME MED HOME MED COMPRESSO EQUIP. EQUIP. R [employer] [facility] [place]ROCEN [address] [place] TESIS 8 AND [...] DIABETIC DIABETIC T STRIPS SUPPLY SUPPLY [facility] [employer] INC GLU MON-50 NEBULIZER [id number] GUERO JACK WITH 8 HOME MED HOME MED COMPRESSO EQUIP. EQUIP. [facility] ARTHROCEN [address] [place] TESIS 8 AND [...] PSC PSC IA INJ PER DOSE ARTHROCEN [address] [place] TESIS 8 AND HAND AND HAND ASPIR&/IN SURGEONS SURGEONS J MAJOR PSC PSC JT/BURSA W/O US Encounters Encounter Start End Date Code Location Performer Type Date [facility] - 7 7 [facility] 7 7 [facility] - 6 6 [facility] - 6 6 [facility] - 6 6 [facility] OFFICE [id number] [facility] OUTPATI[facility] 6 6 PHYSICIAN KIMBERLY T NEW 20 S GROUP MINUTES OFFICE [id number] [facility] OUTPATIEN 6 6 PHYSICIAN JAM T NEW [address] [facility] - 5 5 [facility] EMERGENCY 25664 [facility] Lerner 5 5 [facility] T VISIT P LOW/MODER SEVERITY [facility] - 4 4 [facility] OFFICE 23646 [facility]UL[facility] OUTPATIEN 3 3 OFELIA OFELIA T VISIT [address] [facility] - 3 3 [facility] - 2 2 [facility] 2 2 [facility] 2 2 [facility] 2 2 [facility] - 2 2 [facility] T EMERGENCY [id number] ATUL STEWARD DEPT 2 2 [facility]ERGENCY [facility] VISIT SERVICES HIGH SEVERITY& THREAT [facility] - 2 2 [facility] OUTPATIEN INC EMERGENCY 99477 [facility] 2 2 [facility] T VISIT HIGH/URGE NT SEVERITY [facility] 1 1 [facility] 1 1 [facility] INC EMERGENCY 91036 ATUL STEWARD 1 1 EMERGENCY [facility] DEPARTMEN SERVICES T VISIT HIGH/URGE NT SEVERITY EMERGENCY 81362 [facility] 1 1 [facility] T VISIT LOW/MODER SEVERITY OFFICE 75147 FAMILY MULBERRY OUTPATIEN 1 1 CARE OFELIA T VISIT ASSOCIATE [address] [facility] - 0 0 [facility] INC OFFICE 03521 [facility] OUTPATIEN 0 0 CARE OFELIA T VISIT ASSOCIATE 15 S MINUTES OFFICE 06980 [facility] OUTPATIEN 0 0 CARE OFELIA T VISIT ASSOCIATE 25 S MINUTES OFFICE 73361 [facility], OUTPATIEN 0 0 CARE JAIR T T VISIT ASSOCIATE 15 S MINUTES OFFICE 49483 [facility], OUTPATIEN 0 0 CARE JAIR T T VISIT ASSOCIATE [address] [facility] - 9 9 [facility] T OFFICE 77882 FAMILY [facility], OUTPATIEN 9 9 CARE JAIR T T VISIT ASSOCIATE 40 S MINUTES OFFICE 01395 FAM[facility], OUTPATIEN 9 9 CARE JAIR T T VISIT ASSOCIATE 15 S MINUTES OFFICE 74311 [facility], OUTPATIEN 9 9 CARE JAIR T T VISIT ASSOCIATE 15 S MINUTES OFFICE 56271 [facility], OUTPATIEN 9 9 CARE JAIR T T VISIT ASSOCIATE [address] [facility] - 9 9 [facility] T OFFICE 52665 [facility] , [facility] NEW/ESTAB PATIENT 60 MIN OFFICE 53967 FAMILY MULBERRY, OUTPATIEN 8 8 CARE JAIR T T VISIT ASSOCIATE 25 S MINUTES [place]ICE [address] [place] 8 8 AND HAND AND HAND T VISIT SURGEONS SURGEONS 10 PSC PSC MINUTES
--- OUTSIDE RECORDS SUMMARY | 2017-01-23 09:42 | External Medical Summary Rpt ---
Author Author [facility] [facility] Velásquez, [employer] Organization [employer] Address Unknown Phone Unavailable
--- OUTSIDE RECORDS SUMMARY | 2017-01-23 09:42 | External Medical Summary Rpt ---
Demographics Home Phone Preferred Language Kiswahili Marital Status Unknown Nondenominational Affiliation Unknown Race Unknown Ethnic Group Unknown Author Author , Organization [employer] Address Unknown Phone Unavailable Purpose Continuity of Care Document - 03-22-2016 through 2016 Immunization Name Date Route CVX Reacti Commen Provid Is Given on t er Refuse d Influe 135 Histor WALMARCELO No nza, 2016 uscula ical T591 High r Inform Dose ation - Source Unspec ified
--- OUTSIDE RECORDS SUMMARY | 2017-01-23 09:42 | External Medical Summary Rpt ---
Demographics Home Phone Preferred Language Yakut Marital Status Unknown Evangelical Affiliation Unknown Race Unknown Ethnic Group Unknown [...]
[2017-01-23 09:57] LABS: CORRECTED WBC 7.7 K/mm3; NEUTROPHILS 72 % (42-76)
--- NOTE | 2017-01-23 10:44 | RADIOLOGY REPORT PS360 ---
CHEST-PORTABLE HISTORY: SHORTNESS OF AIR ORDERING PHYSICIAN: Rik Fox MD PATIENT AGE: 81 years COMPARISON: 07/15/2016 FINDINGS: There is cardiomegaly without a linear. Increased density is present in the right mid and lower lung zone consistent with effusion with underlying consolidation or mass with superimposed increased density in the right lower lobe. Chest CT may be of further value. Small left effusion is also suspected. Upper lobes are clear. There are degenerative changes in the shoulders. IMPRESSION: 1. Medium-sized right pleural effusion with underlying parenchymal opacification in the right lower lobe consistent with atelectasis, pneumonia, or pulmonary mass. 2. Small left effusion with cardiomegaly
[2017-01-23 11:23] VITALS: BP 110/70
== END 2017-01-23 11:25 | disposition short-term general hospital (02) ==
LOC: ER 09:02
PROVIDERS: Emergency Medicine
DX: J96.01 Acute respiratory failure with hypoxia (principal); N17.9 Acute kidney failure, unspecified; I10 Essential (primary) hypertension